=== PATIENT | female | born 1935 | race Caucasian/White ===

== ENCOUNTER 2022-08-08 15:17 | Outpatient (REF) | payer MEDICARE, SELFPAY ==
[2022-08-08 16:32] LABS: Basophils Absolute Auto 0.1 X10*3/uL (0.0-0.2); Basophils Percent Auto 0.9 % (0-2); Hemoglobin 10.9 g/dl (12.0-16.0); Imm Gran Abs Auto 0.02 X10*3/uL (0.00-0.03); Imm Gran Pct Auto 0.3 % (0.0-0.4); MANUAL DIFF FLAG SCAN; Mean Platelet Volume 13.3 fL (9.4-12.3); SCAN SMEAR FLAG 1
[2022-08-08 16:34] LABS: Eosinophils Absolute Auto 0.2 X10*3/uL (0.0-0.4); Eosinophils Percent Auto 3.4 % (0-4); Hematocrit 32.1 % (37.0-47.0); Lymphocytes Absolute Auto 1.7 X10*3/uL (1.2-4.9); Lymphocytes Percent Auto 29.7 % (20-40); Mean Corpuscular Hemoglobin 32.2 pg (27.0-33.0); Mean Corpuscular Volume 94.7 fL (80.0-98.0); Monocytes Absolute Auto 0.5 X10*3/uL (0.1-1.2); Monocytes Percent Auto 8.3 % (2-11); Neutrophils Absolute Auto 3.3 x10*3/uL (2.0-8.3); Neutrophils Percent Auto 57.4 % (45-73); Platelet Count 158 X10*3/uL (160-400); Red Blood Count 3.39 X10*6/uL (4.20-5.50); Red Cell Distribution Width 12.5 % (11.0-16.0); White Blood Count 5.8 X10*3/uL (4.8-10.8)
[2022-08-08 16:43] LABS: PLT ABN DIST 1
[2022-08-08 17:45] LABS: SLIDE REVIEW VERIFIED
[2022-08-08 17:47] LABS: Alanine Aminotransferase 28 U/L (0-31); Albumin Level 3.9 g/dL (3.5-5.0); Alkaline Phosphatase 63 U/L (39-117); Anion Gap 10 (12-20); Aspartate Amino Transferase 31 U/L (5-31); Bilirubin Total 0.5 mg/dL (0.0-1.0); Blood Urea Nitrogen 20 mg/dL (9-16); Calcium 8.9 mg/dL (8.4-10.2); Carbon Dioxide 23 mmol/L (22-29); Chloride 113 mmol/L (96-108); Estimated Glomerular Filt Rate 45; Glucose Random 81 mg/dL (60-115); Iron 70 mcg/dL (30-160); Percent Iron Saturation 28 % (15-50); Potassium 4.2 mmol/L (3.3-5.1); Sodium 142 mmol/L (135-145); Total Iron Binding Capacity 251 mcg/dL (228-428); Total Protein 6.9 g/dL (6.5-8.0); Unsaturated Iron Binding 181 ug/dL
[2022-08-08 18:15] LABS: Folate 7.2 ng/mL (> or = 4.0); Vitamin B12 256 pg/mL (200-900); Vitamin D 25-OH Total 32.7 ng/mL (>30)
[2022-08-11 14:02] LABS: Immature Retic Fraction 8.3 % (3.0-15.9); Retic HGB Equivalent 37.2 pg (30.0-35.0); Reticulocyte Percent 1.6 % (0.5-1.8); Reticulocytes Absolute 0.054 X10*6/uL (0.026-0.095)
[2022-08-11 14:12] LABS: C Reactive Protein < 0.04 mg/dL (< or = 0.50)
[2022-08-15 15:08] LABS: IgA 339 mg/dL (70-320); IgG 1557 mg/dL (600-1540); IgM 177 mg/dL (50-300)
== END 2022-08-08 15:18 | disposition home or self-care (01) ==
LOC: HO.HMGCLDS 15:17
PROVIDERS: Visit Provider Internal Medicine
DX: E03.9 Hypothyroidism, unspecified (principal); I10 Essential (primary) hypertension; M81.0 Age-related osteoporosis without current pathological fracture; D64.9 Anemia, unspecified
CPT/HCPCS: 36415; 80053; 82306; 82607; 82746; 82784; 83540; 85025; 85045; 86140; 86334

== ENCOUNTER 2022-09-06 09:49 | Outpatient (REF) | payer MEDICARE, SELFPAY ==
[2022-09-06 11:23] LABS: MANUAL DIFF FLAG NO
[2022-09-06 11:38] LABS: Basophils Absolute Auto 0.1 X10*3/uL (0.0-0.2); Basophils Percent Auto 0.9 % (0-2); Eosinophils Absolute Auto 0.3 X10*3/uL (0.0-0.4); Hematocrit 34.7 % (37.0-47.0); Hemoglobin 11.6 g/dl (12.0-16.0); Imm Gran Abs Auto 0.02 X10*3/uL (0.00-0.03); Imm Gran Pct Auto 0.4 % (0.0-0.4); Immature Retic Fraction 7.8 % (3.0-15.9); Lymphocytes Absolute Auto 1.4 X10*3/uL (1.2-4.9); Lymphocytes Percent Auto 25.4 % (20-40); Mean Corpuscular HGB Conc 33.4 g/dl (31.0-35.0); Mean Corpuscular Hemoglobin 32.4 pg (27.0-33.0); Mean Corpuscular Volume 96.9 fL (80.0-98.0); Mean Platelet Volume 12.3 fL (9.4-12.3); Monocytes Absolute Auto 0.4 X10*3/uL (0.1-1.2); Monocytes Percent Auto 7.9 % (2-11); Neutrophils Absolute Auto 3.2 x10*3/uL (2.0-8.3); Neutrophils Percent Auto 60.4 % (45-73); Platelet Count 168 X10*3/uL (160-400); Red Blood Count 3.58 X10*6/uL (4.20-5.50); Red Cell Distribution Width 12.2 % (11.0-16.0); Retic HGB Equivalent 36.9 pg (30.0-35.0); Reticulocyte Percent 0.9 % (0.5-1.8); Reticulocytes Absolute 0.033 X10*6/uL (0.026-0.095); White Blood Count 5.4 X10*3/uL (4.8-10.8)
[2022-09-06 12:06] LABS: Anion Gap 10 (12-20); Blood Urea Nitrogen 19 mg/dL (9-16); C Reactive Protein < 0.10 mg/dL (< or = 0.50); Calcium 9.4 mg/dL (8.4-10.2); Carbon Dioxide 29 mmol/L (22-29); Chloride 106 mmol/L (96-108); Estimated Glomerular Filt Rate 50; Glucose Random 85 mg/dL (60-115); Potassium 3.8 mmol/L (3.3-5.1); Sodium 141 mmol/L (135-145)
[2022-09-06 12:25] LABS: TSH reflex Free T4 2.47 uIU/mL (0.32-4.0)
== END 2022-09-06 09:50 | disposition home or self-care (01) ==
LOC: HO.HMGCLDS 09:49
PROVIDERS: PCP Internal Medicine; Visit Provider Internal Medicine
DX: E03.9 Hypothyroidism, unspecified (principal); I10 Essential (primary) hypertension; D64.9 Anemia, unspecified
CPT/HCPCS: 36415; 80048; 84443; 85025; 85045; 86140

== ENCOUNTER 2023-02-16 09:53 | Outpatient (AMB) | payer MEDICARE, SELFPAY ==
--- NOTE | 2023-02-16 09:54 | MHC.PC.OV ---
Vital Signs 02/16/23 09:55 Height 5 ft 1 in Weight 107 lb BMI 20.2 BP 128/60 Blood Pressure Location Lt brachial Position Sitting Pulse 81 Pulse Source Pulse Oximeter Pulse Oximetry (%) 98 Oxygen Delivery Method Room Air Intake Visit Reasons: Follow up on labs Intake Note: Pt is here today for a follow up visit on labs. Allergies chlorpheniramine Allergy (Verified 02/16/23 09:59) Unknown Penicillins Allergy (Verified 02/16/23 09:59) Unknown phenylpropanolamine Allergy (Verified 02/16/23 09:59) Unknown Medication List - Last Reconciled 02/16/23 by Argelia Hutchins MD amlodipine 5 mg PO DAILY aspirin 81 mg PO DAILY atorvastatin 40 mg PO BEDTIME levothyroxine 75 mcg PO DAILY lisinopril 30 mg PO DAILY metoprolol tartrate 25 mg PO DAILY Tobacco use date assessed: 02/16/23 Fall risk assessment: No Falls in past year Last assessed Fall Risk: 02/16/23 Dental Screening Dental Screen Date: 02/16/23 Did you have a dental visit in the last 12 months?: Yes Did you have a dental problem in the last 6 months where you did not have access to dental care?: No Was dental information given to patient?: Patient has dentist HPI Follow up on labs HPI Details Pt presents for f/u of HTN and hypothyroid stable on meds PFSH Medical History Colon cancer Surgical History Hx of appendectomy History of colon resection Hx of tonsillectomy Family History Father Brain tumor Mother Colon cancer Sister Lung cancer Social History Household Members Other:: lives alone, 6 daughters, Housing: House Patient Tobacco Use Status: Never used Tobacco e-Cigarette/Vaping Use: Never Used Current occupational status: retired Cognitive needs: No Hearing needs: No Vision needs: Yes Questionnaire Thrive Questionnaire Date Thrive assessed: 08/08/22 AUDIT C Alcohol Use Questionnaire (AUDIT-C) 1. How often do you have a drink containing alcohol?: Never 3. How often do you have six or more drinks on one occasion?: Never Total Score: 0 ESTHER-7 AMB Questionnaire ESTHER-7 Date ESTHER - 7 assessed: 08/08/22 Source: Developed by Drs. Trent Coulter, Keisha Woodson, Blaine Jurado and colleagues, with an educational miah from [employer]. Review of Systems Const All systems reviewed & are unremarkable except as noted in HPI and below Reports no additional complaints Eyes Reports no additional complaints ENT Reports no additional complaints Card Reports no additional complaints Resp Reports no additional complaints GI Reports no additional complaints Reports no additional complaints Physical exam (Primary Care) Vital Signs: Last Vital Signs Pulse 81 02/16/23 09:55 BP 128/60 02/16/23 09:55 Pulse Ox 98 02/16/23 09:55 Oxygen Delivery Method Room Air 02/16/23 09:55 BMI result Body Mass Index 20.2 Tobacco/Smoking Status: Tobacco use Status Tobacco use date assessed 02/16/23 02/16/23 10:02 Patient Tobacco Use Status Never used Tobacco 02/16/23 10:02 e-Cigarette/Vaping Use Never Used 02/16/23 10:02 Thrive Assessment: Date of Thrive Assessment Date Thrive assessed 08/08/22 02/16/23 10:02 Const General: no acute distress HENMT Head: Yes normal to inspection Neck Neck: Yes no lymphadenopathy and Yes supple Resp Effort & Inspection: normal respiratory effort Auscultation: clear to auscultation bilaterally Cardio Rhythm: regular rhythm Heart sounds: S1 normal heart sound present and S2 normal heart sound present GI Inspection: Yes normal to inspection Palpation (GI): Soft to palpation Assessment and Plan Assessment & Plan (1) Anemia: Comment: Multifactorial normal iron and B12 level 07/13 Code(s): D64.9 - Anemia, unspecified Plan: check labs (2) Hypothyroidism: Code(s): E03.9 - Hypothyroidism, unspecified Plan: cont Levothyroxine, check TSH (3) HTN (hypertension): Code(s): I10 - Essential (primary) hypertension Plan: cont meds, f/u 6 months Medications: Refilled levothyroxine 75 mcg PO DAILY 90 tabs 3RF amlodipine 5 mg PO DAILY 90 tabs 3RF lisinopril 30 mg PO DAILY 90 tabs 3RF Discontinued metoprolol tartrate Discontinued Reason: Doctor's Order 25 mg PO DAILY 90 tabs 2RF atorvastatin Discontinued Reason: Doctor's Order 40 mg PO BEDTIME 90 tabs 1RF Coding Level of Care Code Est Pt Level 4 (15678) Diagnoses Anemia D64.9 Hypothyroidism E03.9 HTN (hypertension) I10
[2023-02-16 09:55] VITALS: BP 128/60; PULSE 81; O2SAT 98; BMI 20.2
== END 2023-02-16 10:43 | disposition home or self-care (01) ==
PROVIDERS: PCP Internal Medicine; Visit Provider Internal Medicine
DX: D64.9 Anemia, unspecified (principal); E03.9 Hypothyroidism, unspecified; I10 Essential (primary) hypertension
CPT/HCPCS: 99214

== ENCOUNTER 2023-03-29 08:36 | Outpatient (REF) | payer MEDICARE, SELFPAY ==
[2023-03-29 11:13] LABS: MANUAL DIFF FLAG NO
[2023-03-29 11:48] LABS: Basophils Absolute Auto 0.1 X10*3/uL (0.0-0.2); Basophils Percent Auto 1.4 % (0-2); Eosinophils Absolute Auto 0.3 X10*3/uL (0.0-0.4); Eosinophils Percent Auto 7.5 % (0-4); Hematocrit 33.1 % (37.0-47.0); Hemoglobin 11.3 g/dl (12.0-16.0); Imm Gran Abs Auto 0.01 X10*3/uL (0.00-0.03); Imm Gran Pct Auto 0.2 % (0.0-0.4); Lymphocytes Absolute Auto 1.3 X10*3/uL (1.2-4.9); Lymphocytes Percent Auto 30.9 % (20-40); Mean Corpuscular HGB Conc 34.1 g/dl (31.0-35.0); Mean Corpuscular Hemoglobin 32.4 pg (27.0-33.0); Mean Corpuscular Volume 94.8 fL (80.0-98.0); Monocytes Absolute Auto 0.4 X10*3/uL (0.1-1.2); Neutrophils Absolute Auto 2.2 x10*3/uL (2.0-8.3); Platelet Count 184 X10*3/uL (160-400); Red Blood Count 3.49 X10*6/uL (4.20-5.50); Red Cell Distribution Width 12.1 % (11.0-16.0); White Blood Count 4.2 X10*3/uL (4.8-10.8)
[2023-03-29 12:00] LABS: Alanine Aminotransferase 13 U/L (0-31); Albumin Level 3.8 g/dL (3.5-5.0); Alkaline Phosphatase 78 U/L (39-117); Anion Gap 11 (12-20); Aspartate Amino Transferase 26 U/L (5-31); Bilirubin Total 0.6 mg/dL (0.0-1.0); Blood Urea Nitrogen 18 mg/dL (9-16); Carbon Dioxide 27 mmol/L (22-29); Chloride 105 mmol/L (96-108); Cholesterol 205 mg/dL (<200); Estimated Glomerular Filt Rate 52; Glucose Fasting 85 mg/dL (60-99); HDL Cholesterol 42 mg/dL (>40); LDL Cholesterol Calculated 138 mg/dL (<100); Potassium 3.7 mmol/L (3.3-5.1); Sodium 139 mmol/L (135-145); Total Protein 7.5 g/dL (6.5-8.0); Triglycerides 127 mg/dL (<150)
[2023-03-29 12:01] LABS: TSH reflex Free T4 0.95 uIU/mL (0.32-4.0)
[2023-03-29 12:25] LABS: Folate 8.3 ng/mL (> or = 4.0); Vitamin B12 156 pg/mL (200-900)
== END 2023-03-29 08:37 | disposition home or self-care (01) ==
LOC: HO.WFDLDS 08:36
PROVIDERS: Visit Provider Internal Medicine
DX: E03.9 Hypothyroidism, unspecified (principal); I10 Essential (primary) hypertension; D64.9 Anemia, unspecified
CPT/HCPCS: 36415; 80053; 80061; 82607; 82746; 84443; 85025

== ENCOUNTER 2023-05-02 11:36 | Outpatient (AMB) | payer MEDICARE, SELFPAY ==
[2023-05-02 11:41] VITALS: BP 116/58; PULSE 94; O2SAT 99; BMI 20.2
--- NOTE | 2023-05-02 11:41 | MHC.PC.OV ---
Vital Signs 05/02/23 11:41 Height 5 ft 1 in Weight 107 lb BMI 20.2 BP 116/58 L Blood Pressure Location Lt brachial Position Sitting Pulse 94 Pulse Source Pulse Oximeter Pulse Oximetry (%) 99 Oxygen Delivery Method Room Air Intake Visit Reasons: Hospital follow up visit Intake Note: Pt is here today for Hospital follow up visit. Allergies chlorpheniramine Allergy (Verified 02/16/23 09:59) Unknown Penicillins Allergy (Verified 02/16/23 09:59) Unknown phenylpropanolamine Allergy (Verified 02/16/23 09:59) Unknown Medication List - Last Reconciled 05/02/23 by Argelia Hutchins MD amlodipine 5 mg PO DAILY aspirin 81 mg PO DAILY atorvastatin 80 mg PO BEDTIME clopidogrel (Plavix) 75 mg PO DAILY cyanocobalamin (vitamin B-12) 1,000 mcg PO DAILY levothyroxine 75 mcg PO DAILY lisinopril 30 mg PO DAILY Tobacco use date assessed: 05/02/23 HPI Hospital follow up visit HPI Details Pt presents for hospitalization at [facility] for CVA and L carotid endarterectomy for 70% a left internal carotid artery stenosis. Patient recovered well and does not have any residual neurological deficit. Patient daughters reports blood pressure being low 110/50 but patient denies lightheadedness or dizziness. She will be starting clopidogrel on Sunday in addition to the aspirin. Patient follows up with vascular surgeon next week [facility] Medical History (Updated 05/02/23 @ 12:45 by Argelia Hutchins MD) Colon cancer Surgical History Hx of appendectomy History of colon resection Hx of tonsillectomy Family History Father Brain tumor Mother Colon cancer Sister Lung cancer Social History Household Members Other:: lives alone, 6 daughters, Housing: House Patient Tobacco Use Status: Never used Tobacco e-Cigarette/Vaping Use: Never Used Current occupational status: retired Cognitive needs: No Hearing needs: No Vision needs: Yes Questionnaire Thrive Questionnaire Date Thrive assessed: 08/08/22 ESTHER-7 AMB Questionnaire ESTHER-7 Date ESTHER - 7 assessed: 08/08/22 Source: Developed by Drs. Trent Coulter, Keisha Woodson, Blaine Jurado and colleagues, with an educational miah from [employer]. Review of Systems Const All systems reviewed & are unremarkable except as noted in HPI and below Reports no additional complaints Eyes Reports no additional complaints ENT Reports no additional complaints Card Reports no additional complaints Resp Reports no additional complaints GI Reports no additional complaints Reports no additional complaints Physical exam (Primary Care) Vital Signs: Last Vital Signs Pulse 94 05/02/23 11:41 BP 116/58 L 05/02/23 11:41 Pulse Ox 99 05/02/23 11:41 Oxygen Delivery Method Room Air 05/02/23 11:41 BMI result Body Mass Index 20.2 Tobacco/Smoking Status: Tobacco use Status Tobacco use date assessed 05/02/23 05/02/23 11:49 Patient Tobacco Use Status Never used Tobacco 05/02/23 11:49 e-Cigarette/Vaping Use Never Used 05/02/23 11:49 Thrive Assessment: Date of Thrive Assessment Date Thrive assessed 08/08/22 05/02/23 11:49 Const General: no acute distress HENMT Face and sinus: Yes normal facial exam Neck Neck: Yes supple Resp Effort & Inspection: normal respiratory effort Auscultation: clear to auscultation bilaterally Cardio Rhythm: regular rhythm Heart sounds: S1 normal heart sound present and S2 normal heart sound present GI Inspection: Yes normal to inspection Palpation (GI): Soft to palpation Assessment and Plan Assessment & Plan (1) Anemia: Comment: Multifactorial normal iron and B12 level 07/13 Code(s): D64.9 - Anemia, unspecified Plan: Continue B12 supplement monitor CBC and vitamin B12 (2) Hypothyroidism: Code(s): E03.9 - Hypothyroidism, unspecified Plan: Continue levothyroxine (3) HTN (hypertension): Code(s): I10 - Essential (primary) hypertension Plan: Blood pressure is low and patient will try half a tablet of amlodipine and continue lisinopril. Her daughter will be monitor her blood pressure every other day (4) Left carotid artery stenosis: Comment: 70 % , small CVA 05/12 , S/P endarterectomy 04/25/23, [facility] , f/u Code(s): I65.22 - Occlusion and stenosis of left carotid artery Plan: Follow-up with vascular surgeon at [facility] Orders: Orders Vitamin B12 and Folate 3 Months D64.9 - Anemia, unspecified, E03.9 - Hypothyroidism, unspecified, I10 - Essential (primary) hypertension Complete Blood Count Auto Diff 3 Months D64.9 - Anemia, unspecified, E03.9 - Hypothyroidism, unspecified, I10 - Essential (primary) hypertension TSH reflex Free T4 3 Months D64.9 - Anemia, unspecified, E03.9 - Hypothyroidism, unspecified, I10 - Essential (primary) hypertension Lipid Panel 3 Months D64.9 - Anemia, unspecified, E03.9 - Hypothyroidism, unspecified, I10 - Essential (primary) hypertension Comprehensive [place]. Panel Fast 3 Months D64.9 - Anemia, unspecified, E03.9 - Hypothyroidism, unspecified, I10 - Essential (primary) hypertension Coding Level of Care Code Est Pt Level 4 (56946) Diagnoses Anemia D64.9 Hypothyroidism E03.9 HTN (hypertension) I10 Left carotid artery stenosis I65.22
== END 2023-05-02 12:48 | disposition home or self-care (01) ==
PROVIDERS: PCP Internal Medicine; Visit Provider Internal Medicine
DX: D64.9 Anemia, unspecified (principal); E03.9 Hypothyroidism, unspecified; I10 Essential (primary) hypertension; I65.22 Occlusion and stenosis of left carotid artery
CPT/HCPCS: 99214

== ENCOUNTER 2023-06-28 08:17 | Outpatient (REF) | payer MEDICARE, SELFPAY ==
[2023-06-28 11:18] LABS: MANUAL DIFF FLAG NO
[2023-06-28 11:40] LABS: Basophils Absolute Auto 0.1 X10*3/uL (0.0-0.2); Basophils Percent Auto 0.8 % (0-2); Eosinophils Absolute Auto 0.3 X10*3/uL (0.0-0.4); Eosinophils Percent Auto 4.7 % (0-4); Hematocrit 37.2 % (37.0-47.0); Hemoglobin 12.4 g/dl (12.0-16.0); Imm Gran Abs Auto 0.01 X10*3/uL (0.00-0.03); Imm Gran Pct Auto 0.2 % (0.0-0.4); Lymphocytes Absolute Auto 1.7 X10*3/uL (1.2-4.9); Lymphocytes Percent Auto 26.3 % (20-40); Mean Corpuscular HGB Conc 33.3 g/dl (31.0-35.0); Mean Corpuscular Hemoglobin 31.2 pg (27.0-33.0); Mean Corpuscular Volume 93.5 fL (80.0-98.0); Mean Platelet Volume 12.3 fL (9.4-12.3); Monocytes Absolute Auto 0.5 X10*3/uL (0.1-1.2); Monocytes Percent Auto 8.2 % (2-11); Neutrophils Absolute Auto 3.8 x10*3/uL (2.0-8.3); Neutrophils Percent Auto 59.8 % (45-73); Platelet Count 165 X10*3/uL (160-400); Red Blood Count 3.98 X10*6/uL (4.20-5.50); Red Cell Distribution Width 12.8 % (11.0-16.0); White Blood Count 6.4 X10*3/uL (4.8-10.8)
[2023-06-28 12:09] LABS: Alanine Aminotransferase 22 U/L (0-31); Alkaline Phosphatase 162 U/L (39-117); Anion Gap 10 (12-20); Aspartate Amino Transferase 23 U/L (5-31); Bilirubin Total 0.5 mg/dL (0.0-1.0); Blood Urea Nitrogen 21 mg/dL (9-16); Calcium 9.8 mg/dL (8.4-10.2); Carbon Dioxide 29 mmol/L (22-29); Chloride 102 mmol/L (96-108); Cholesterol 193 mg/dL (<200); Estimated Glomerular Filt Rate 41; Glucose Fasting 98 mg/dL (60-99); HDL Cholesterol 44 mg/dL (>40); LDL Cholesterol Calculated 117 mg/dL (<100); Potassium 3.3 mmol/L (3.3-5.1); Sodium 138 mmol/L (135-145); Triglycerides 162 mg/dL (<150)
[2023-06-28 12:31] LABS: TSH reflex Free T4 1.31 uIU/mL (0.32-4.0)
[2023-06-28 12:38] LABS: Folate 6.6 ng/mL (> or = 4.0); Vitamin B12 444 pg/mL (200-900)
== END 2023-06-28 08:18 | disposition home or self-care (01) ==
LOC: HO.WFDLDS 08:17
PROVIDERS: Visit Provider Internal Medicine
DX: E03.9 Hypothyroidism, unspecified (principal); I10 Essential (primary) hypertension; D64.9 Anemia, unspecified
CPT/HCPCS: 36415; 80053; 80061; 82607; 82746; 84443; 85025

== ENCOUNTER 2023-09-13 10:52 | Outpatient (AMB) | payer MEDICARE, SELFPAY ==
[2023-09-13 11:08] VITALS: BP 118/68; PULSE 80; O2SAT 98; BMI 18.9
--- NOTE | 2023-09-13 11:08 | A.OFFVIS_ITS ---
Intake Vital Signs 09/13/23 11:08 Height 5 ft 1 in Weight 100 lb BMI 18.9 BP 118/68 Blood Pressure Location Rt brachial Position Sitting Pulse 80 Pulse Source Pulse Oximeter Pulse Oximetry (%) 98 Oxygen Delivery Method Room Air Intake Visit Reasons: SWV [id number] Allergies Penicillins Allergy (Verified 09/13/23 11:15) Unknown Medication List - Last Reconciled 09/13/23 by Argelia Hutchins MD amlodipine 5 mg PO DAILY aspirin 81 mg PO DAILY atorvastatin 80 mg PO BEDTIME clopidogrel (Plavix) 75 mg PO DAILY cyanocobalamin (vitamin B-12) 1,000 mcg PO DAILY levothyroxine 75 mcg PO DAILY lisinopril 30 mg PO DAILY HPI SWV [id number] HPI Details Initiated the conversation about Advanced Directives. Advanced Directives help? patients prepare for current and future decisions about their medical treatment? and place of care. Discussed with patient that it is a process where a patients? current condition and prognosis are reviewed, their wishes for information? regarding their illness are elicited, and likely medical dilemmas are presented? and options discussed. The form can be amended as needed, reviewed yearly and? make changes as needed IPPE/AWV ? year old presents? for her ? Annual? Wellness Visit, initial visit.? Medical / Social History Reviewed? Past Medical History ?Yes? . ? [place]? of Care / Care Team list updated ?Yes . ? Surgical/Hospitalization? History ?Yes . ? Current Medications? (including OTC and supplements) ?Yes . ? Family History ?Yes? . ? Tobacco? Control form ?Yes . ? AUDIT-C (Alcohol use) form? ?Yes . ? Illicit drug use in Social? History ?Yes . ? Current diagnosis of? depression? ?No ? Appropriate PHQ2/PHQ9? completed ?Yes . ? Data entered by ?Medical? Director Insurance and reviewed by provider ? Fall Risk ? Fall? History? Have you had any falls with? injury in the past year? ?No . ? Have you had two or more? falls in the past year? ?No . ? Fall Risk Assessment: ?No? falls in the past year . ? HRA filled out by? the patient, reviewed by Provider and scanned. ? IPPE/AWV ? Balance? [place]? ?Yes . ? Tandem? walk ?Yes . ? Walk and? Turn ?Yes . ? Rise from? sit to stand ?Yes . ?Vision? Corrective? lens ?Yes ? Vision? screen ? Up-to-date, has an appointment [] for vision? screening and glaucoma screening ?Hearing? Whisper? test ?pass .? Initiated the conversation about Advanced Directives. Advanced Directives help? patients prepare for current and future decisions about their medical treatment? and place of care. Discussed with patient that it is a process where a patients? current condition and prognosis are reviewed, their wishes for information? regarding their illness are elicited, and likely medical dilemmas are presented? and options discussed. The form can be amended as needed, reviewed yearly and? make changes as needed Written? Plan?Completed. See Patient? Documents. [facility] Medical History Colon cancer Surgical History Hx of appendectomy History of colon resection Hx of tonsillectomy Family History Father Brain tumor Mother Colon cancer Sister Lung cancer Social History Household Members Other:: lives alone, 6 daughters, Housing: House Patient Tobacco Use Status: Never used Tobacco e-Cigarette/Vaping Use: Never Used Current occupational status: retired Cognitive needs: No Hearing needs: No Vision needs: Yes Questionnaire Medicare Wellness Checkup What is your age?: 81 or older What gender do you identify with?: female During the past 4 weeks, how much have you been bothered by emotional problems such as feeling anxious, depressed, irritable, sad or downhearted, and blue?: not at all During the past 4 weeks, has your physical & emotional health limited your social activities with family, friends, neighbors, or groups?: not at all During the past 4 weeks, how much bodily pain have you generally had?: no pain During the past 4 weeks, was someone available to help you if you needed & wanted help?: yes, as much as I wanted During the past 4 weeks, what was the hardest physical activity you could do for at least 2 minutes?: light Can you get to places out of walking distance without help? (For eg., can you travel alone on buses, taxis or drive your car?): No Can you go shopping for groceries or clothes without someone's help?: No Can you prepare your own meals?: Yes Can you do your housework without help?: Yes Because of any health problems, do you need the help of another person with your personal care needs such as eating, bathing, dressing or getting around the house?: No Can you handle your own money without help?: Yes During the past 4 weeks, how would you rate your health in general?: excellent During the past 4 weeks how have things been going for you?: very well; could hardly better Are you having difficulties driving your car?: not applicable, I don't use a car Do you always fasten your seat belt when you are in a car?: yes, usually During past 4 weeks, have you been bothered by the following: never: Falling or dizzy when standing up, Trouble eating well?, Teeth or denture problems?, Problems using the telephone? and Tiredness or fatigue? Have you fallen 2 or more times in the past year?: No Are you afraid of falling?: No Are you a smoker?: no During the past 4 weeks, how many drinks of wine, beer, or other alcoholic beverages did you have?: no alcohol at all Do you exercise for about 20 minutes 3 or more times a week?: yes, most of the time Have you been given information to help with the following?: no: Hazards in your house that might hurt you? and no: Keeping track of your medications? How often do you have trouble taking medicines the way you have been told to take them?: I always take medicine as prescribed How confident are you that you can control & manage most of your health problems?: very confident What is your race?: White Mini Mental State Exam (MMSE) Orientation What is the (year) (season) (date) (day) (month)?: year, season, date, day and month Where are we (state) (county) (town or city) (hospital) (floor)?: state, county, town or city, hospital/clinic and floor Registration Name of 3 unrelated objects clearly and slowly, then ask patient to repeat all 3 of them. (1st repeat determines score. Make sure they can repeat all three): object 1, object 2 and object 3 Attention & Calculation (CHOOSE ONE) Spell WORLD backwards (DLROW): 5 letters Recall Ask patient to repeat the 3 items from question #3.: object 1, object 2 and object 3 Language Show patient a wristwatch & ask what it is. Repeat for pencil.: watch and pencil Ask the patient to repeat the phrase 'No ifs, ands, or buts' after you.: correct Ask the patient to 'take a piece of paper with their right hand' 'fold paper in half' 'place paper on floor': take paper in right hand, fold paper in half and place paper on floor Print the sentence 'CLOSE YOUR EYES' on a piece. If patient actually closes eyes then score.: followed written direction Give patient a blank piece of paper & ask to write a sentence. Score if it contains a noun & verb.: sentence contains subject and verb Score Score: 29 Activity of Daily Living Bathing - sponge bath, tub bath or shower: receives no assistance (gets in/out by self, if usual bathing means Dressing - getting clothes from closets & drawers, including inner/outer garments & fasteners.: gets clothes & gets completely dressed without help Toileting - going to the 'toilet room' for urine/bowel elimination & cleaning self/arranging clothes: goes to toilet room, cleans self, arranges clothes without help Transfer: moves in & out of bed and chair without help (may use support object) Continence: controls urination/bowel movements completely by self Feeding: feeds self without help Total Score: 0 Information obtained from: informant Using telephone: independent Traveling: dependent Shopping: dependent Preparing meals: independent Housework: independent Taking medicine: dependent Managing money: independent PHQ-9 Over the last 2 weeks, how often have you been bothered by any of the following problems? 1. Little interest or pleasure in doing things: not at all 2. Feeling down, depressed, or hopeless: not at all 3. Trouble falling or staying asleep, or sleeping too much: not at all 4. Feeling tired or having little energy: not at all 5. Poor appetite or overeating: not at all 6. Feeling bad about yourself - or that you are a failure or have let yourself or your family down: not at all 7. Trouble concentrating on things, such as reading the newspaper or watching television: not at all 8. Moving or speaking so slowly that other people could have noticed. Or the opposite - being so fidgety or restless that you have been moving around a lot more than usual: not at all 9. Thoughts that you would be better off or of hurting yourself in some way: not at all Total score: 0 Depression Screening Interpretation: Negative Depression Screening Done: Yes Source: Developed by Drs. Trent Coulter, Keisha Woodson, Blaine Jurado and colleagues, with an educational miah from [employer]. Review of Systems Const All systems reviewed & are unremarkable except as noted in HPI and below Eyes Reports no additional complaints ENT Reports no additional complaints Card Reports no additional complaints Resp Reports no additional complaints GI Reports no additional complaints Reports no additional complaints Physical Exam Vital Signs: Last Vital Signs Pulse 80 09/13/23 11:08 BP 118/68 09/13/23 11:08 Pulse Ox 98 09/13/23 11:08 Oxygen Delivery Method Room Air 09/13/23 11:08 BMI result Body Mass Index 18.9 Const General: no acute distress HEENT Head: Yes normal to inspection Eyes General: appearance normal, both eyes and all related structures Neck Neck: Yes supple Resp Effort & Inspection: normal respiratory effort Auscultation: clear to auscultation bilaterally Cardio Rhythm: regular rhythm Heart sounds: S1 normal heart sound present and S2 normal heart sound present GI Inspection: Yes normal to inspection Palpation (GI): Soft to palpation Percussion: Yes normal to percussion Auscultation: normal bowel sounds Extrem General: Yes no clubbing, cyanosis or edema Assessment & Plan Assessment & Plan (1) Postmenopausal: Code(s): Z78.0 - Asymptomatic menopausal state Plan: CHECK DEXA (2) Osteoporosis: Comment: Intolerant to Fosamax in the past, Code(s): M81.0 - Age-related osteoporosis without current pathological fracture Plan: Check DEXA, Reclast infusion will be considered after the result continue vitamin-D (3) Hyperlipemia: Code(s): E78.5 - Hyperlipidemia, unspecified Plan: Continue statin (4) Vitamin B 12 deficiency: Code(s): E53.8 - Deficiency of other specified B group vitamins Plan: Continue vitamin B12 (5) Hypothyroidism: Code(s): E03.9 - Hypothyroidism, unspecified Plan: Continue levothyroxine (6) HTN (hypertension): Code(s): I10 - Essential (primary) hypertension Plan: Continue amlodipine and lisinopril, increase fluid intake repeat comprehensive panel for chronic kidney disease stage 3 in 1 month (7) Annual physical exam: Code(s): Z00.00 - Encounter for general adult medical examination without abnormal findings Plan: Well-balanced diet regular physical activity discussed with the patient Plan Follow-up in 6 months Orders: Orders Comprehensive Met. Panel 1 Month M81.0 - Age-related osteoporosis without current pathological fracture Alkaline Phosphatase Isoenzyme 1 Month M81.0 - Age-related osteoporosis without current pathological fracture Vitamin D 25-OH Total 1 Month E55.9 - Vitamin D deficiency, unspecified, M81.0 - Age-related osteoporosis without current pathological fracture Comprehensive [place]. Panel Fast 6 Months D64.9 - Anemia, unspecified, E03.9 - Hypothyroidism, unspecified, E53.8 - Deficiency of other specified B group vitamins, E55.9 - Vitamin D deficiency, unspecified, E78.5 - Hyperlipidemia, unspecified, I10 - Essential (primary) hypertension Complete Blood Count Auto Diff 6 Months D64.9 - Anemia, unspecified, E03.9 - Hypothyroidism, unspecified, E53.8 - Deficiency of other specified B group vitamins, E55.9 - Vitamin D deficiency, unspecified, E78.5 - Hyperlipidemia, unspecified, I10 - Essential (primary) hypertension XR DEXA axial skeleton Today M81.0 - Age-related osteoporosis without current pathological fracture, Z78.0 - Asymptomatic menopausal state Lipid Panel 6 Months D64.9 - Anemia, unspecified, E03.9 - Hypothyroidism, unspecified, E53.8 - Deficiency of other specified B group vitamins, E55.9 - Vitamin D deficiency, unspecified, E78.5 - Hyperlipidemia, unspecified, I10 - Essential (primary) hypertension TSH reflex Free T4 6 Months D64.9 - Anemia, unspecified, E03.9 - Hypothyroidism, unspecified, E53.8 - Deficiency of other specified B group vitamins, E55.9 - Vitamin D deficiency, unspecified, E78.5 - Hyperlipidemia, unspecified, I10 - Essential (primary) hypertension Vitamin B12 and Folate 6 Months D64.9 - Anemia, unspecified, E03.9 - Hypothyroidism, unspecified, E53.8 - Deficiency of other specified B group vitamins, E55.9 - Vitamin D deficiency, unspecified, E78.5 - Hyperlipidemia, unspecified, I10 - Essential (primary) hypertension Vitamin D 25-OH Total 6 Months D64.9 - Anemia, unspecified, E03.9 - Hypothyroidism, unspecified, E53.8 - Deficiency of other specified B group vitamins, E55.9 - Vitamin D deficiency, unspecified, E78.5 - Hyperlipidemia, unspecified, I10 - Essential (primary) hypertension Quality Reporting (2019) Depression/Bipolar (159/160/161/177) PHQ-9: Total score: 0 Coding Level of Care Code Medicare Subsequent (G0439) Diagnoses Postmenopausal Z78.0 Osteoporosis M81.0 Hyperlipemia E78.5 Vitamin B 12 deficiency E53.8 Hypothyroidism E03.9 HTN (hypertension) I10 Annual physical exam Z00.00 CPT Codes Advance Care Planning - Advance Care Planning discussion: On file, no changes ([id number]) Advance Care Planning - Time spent: 1-15 minutes, on File ([id number]) Advance Care Planning Advance Care Planning discussion: On file, no changes Forms completed: Health Care Proxy Time spent: 1-15 minutes, on File
== END 2023-09-13 11:59 | disposition home or self-care (01) ==
PROVIDERS: PCP Internal Medicine; Visit Provider Internal Medicine
DX: Z00.00 Encounter for general adult medical examination without abnormal findings (principal); Z78.0 Asymptomatic menopausal state; M81.0 Age-related osteoporosis without current pathological fracture; E78.5 Hyperlipidemia, unspecified; E53.8 Deficiency of other specified B group vitamins; E03.9 Hypothyroidism, unspecified; I10 Essential (primary) hypertension
CPT/HCPCS: 1123F; G0439

== ENCOUNTER 2023-10-10 12:27 | Outpatient (REF) | payer MEDICARE, SELFPAY ==
[2023-10-10 17:47] LABS: Alanine Aminotransferase 13 U/L (0-31); Albumin Level 3.7 g/dL (3.5-5.0); Alkaline Phosphatase 69 U/L (39-117); Anion Gap 14 (12-20); Aspartate Amino Transferase 22 U/L (5-31); Bilirubin Total 0.4 mg/dL (0.0-1.0); Blood Urea Nitrogen 30 mg/dL (9-16); Calcium 9.3 mg/dL (8.4-10.2); Carbon Dioxide 23 mmol/L (22-29); Chloride 106 mmol/L (96-108); Estimated Glomerular Filt Rate 42; Glucose Random 122 mg/dL (60-115); Potassium 4.3 mmol/L (3.3-5.1); Sodium 139 mmol/L (135-145); Total Protein 7.2 g/dL (6.5-8.0)
[2023-10-10 17:48] LABS: Vitamin D 25-OH Total 33.2 ng/mL (>30)
[2023-10-13 20:14] LABS: Alk.Phos Iso. Macrohepatic 0 % (<=0); Alk.Phos Isoenzymes Bone 49 % (28-66); Alk.Phos Isoenzymes Intest 14 % (1-24); Alk.Phos Isoenzymes Liver 38 % (25-69); Alk.Phos Isoenzymes Placental 0 % (<=0); Alk.Phos Isoenzymes Total 62 U/L (37-153)
== END 2023-10-10 12:28 | disposition home or self-care (01) ==
LOC: HO.WFDLDS 12:27
PROVIDERS: Visit Provider Internal Medicine
DX: M81.0 Age-related osteoporosis without current pathological fracture (principal); E55.9 Vitamin D deficiency, unspecified
CPT/HCPCS: 36415; 80053; 82306; 84080

== ENCOUNTER 2024-01-23 09:53 | Outpatient (AMB) | payer MEDICARE, SELFPAY ==
--- NOTE | 2024-01-23 10:03 | MHC.OFFWIV ---
Intake Vital Signs 01/23/24 10:09 Height 5 ft 1 in Weight 101 lb 4 oz BMI 19.1 BP 122/70 Blood Pressure Location Rt brachial Position Sitting Respiration 14 Pulse 93 Pulse Source Pulse Oximeter Temp 97.5 F Temp Source Skin Pulse Oximetry (%) 98 Oxygen Delivery Method Room Air Intake Visit Reasons: est/ sinus infection/unsteady Intake Note: patient has had a sinus infection over a week and no appetite or sleep. Patient Tobacco Use Status: Never used Tobacco Allergies Penicillins Allergy (Verified 01/23/24 10:19) Unknown Medication List - Last Reconciled 01/23/24 by Dominga Dean, [employer] amlodipine 5 mg PO DAILY cyanocobalamin (vitamin B-12) 1,000 mcg PO DAILY levothyroxine 75 mcg PO DAILY lisinopril 30 mg PO DAILY HPI HPI Comments History of Present Illness Details 88 y/o F with HTN, hypothyroid here today w/ her dtr w c/o sinus infection that started over 1 week ago her sx include: diarrhea, not sleeping and feeling unsteady. The patient is quite stoic and when asked about any physical complaints, she tells me that they come and go and as they come she takes care of mom and as they go she does not log them. Overall she reports feeling well. The daughter reports that she has a history of recurrent sinus infections and her symptoms generally include unsteady gait, diarrhea and not sleeping. Unsure exactly the date of the last sinus infection, reports that often times she responds well to azithromycin. Denies any at home COVID testing. No OTC meds to help. Denies fever, chills ear pain, sore throat, cough, chest pain. Exam: Awake alert NAD Sclera and conjunctiva clear bilat Nares patent, turbinates pale and edematous, worse on the left, no sinus tenderness with palpation bilat TM intact congestion bilat MMM, pharynx WNL RRR LS CTAB Plan will treat for presumptive sinusitis with azithromycin. Advised the patient to be mindful when ambulating and changing positions to prevent falls. If she does not improve in the next 48-72 hours or if her symptoms worsen, advised need for clinical follow up. Otherwise take antibiotics as directed, supportive care. Fall risk education provided. This note is constructed using voice recognition software. While every effort has been made to ensure accuracy in disintegrator, still errors may have been included Sometimes, these errors may affect the content or meaning of the given sentence . FORMERLY [facility], [facility]–1983 Medical History Colon cancer Surgical History Hx of appendectomy History of colon resection Hx of tonsillectomy Family History Father Brain tumor Mother Colon cancer Sister Lung cancer Social History Household Members Other:: lives alone, 6 daughters, Housing: House Patient Tobacco Use Status: Never used Tobacco e-Cigarette/Vaping Use: Never Used Current occupational status: retired Cognitive needs: No Hearing needs: No Vision needs: Yes Physical Exam Vital Signs: Last Vital Signs Temp 97.5 F 01/23/24 10:09 Pulse 93 01/23/24 10:09 Resp 14 01/23/24 10:09 BP 122/70 01/23/24 10:09 Pulse Ox 98 01/23/24 10:09 Oxygen Delivery Method Room Air 01/23/24 10:09 BMI result Body Mass Index 19.1 Assessment & Plan Assessment & Plan (1) Sinusitis: Code(s): J32.9 - Chronic sinusitis, unspecified Qualifiers: Sinusitis location: pansinusitis Chronicity: acute Recurrence: recurrent Qualified Code(s): J01.41 - Acute recurrent pansinusitis Plan: . Medications: New azithromycin For 250 mg dose pack: take 500 mg today (day 1), then 250 mg for 4 days (days 2-5) PO 5 days 6 tabs 0RF Patient Instructions: What Is It? Sinuses are air-filled spaces behind the bones of the upper face: between the eyes and behind the forehead, nose and cheeks. The lining of the sinuses are made up of cells with tiny hairs on their surfaces called cilia. Other cells in the lining produce mucus. The mucus traps germs and pollutants and the cilia push the mucus out through narrow sinus openings into the nose. When the sinuses become inflamed or infected, the mucus thickens and clogs the openings to one or more sinuses. Fluid builds up inside the sinuses causing increased pressure. Also bacteria can become trapped, multiply and infect the lining. This is sinusitis. Prevention There are some measures you can take to decrease your risk of developing sinusitis. If you smoke cigarettes, you should quit. The smoke can irritate nasal passageways and increase the likelihood of infection. Nasal allergies can trigger sinus infections, too. By identifying the allergen (the substance causing the allergic reaction) and avoiding it, you can help prevent sinusitis. If you have congestion from a cold or allergies, the following may help to reduce the risk of developing sinusitis: Drink lots of water. This thins nasal secretions and keeps mucous membranes moist. Use steam to soothe nasal passages. Breathe deeply while standing in a hot shower, or inhale the vapor from a basin filled with hot water while holding a towel over your head. Avoid blowing your nose with great force, which can push bacteria into the sinuses. Some doctors advise periodic home nasal washings to clear secretions. This may help prevent, and also treat, sinus infections. Treatment Many sinus infections improve without treatment. However, several medications may speed recovery and reduce the chance that an infection will become chronic. Decongestants - Congestion often triggers sinus infections, and decongestants can open the sinuses and allow them to drain. Several are available: Pseudoephedrine (Sudafed) is available without prescription, alone or in combination with other medications in multi-symptom cold and sinus remedies. Pseudoephedrine can cause insomnia, racing pulse and jitteriness. Do not use if you have high blood pressure or a heart condition. Phenylephrine (such as Sudafed PE) is an alternative uzki-gny-mpiougv oral decongestant. If you take products containing oral phenylephrine, check with the pharmacist to be certain there is no interaction with other medications you take. Oxymetazoline (AfrinSarah and others) and phenylephrine (Johnny-Synephrine and others) are found in nasal sprays. They are effective and may be less likely to cause the side effects seen with pseudoephedrine. However, using a nasal decongestant for more than three days can cause worse symptoms when you stop the medication. This is called the rebound effect. Antihistamines - These medications help to relieve the symptoms of nasal allergies that lead to inflammation and infections. However, some doctors advise against using antihistamines during a sinus infection because they can cause excessive drying and slow the drainage process. Grds-kkf-uywnqfr antihistamines include diphenhydramine (Benadryl and others), chlorpheniramine (Chlor-Trimeton and others) and loratadine (Claritin). Fexofenadine (Cande) and cetrizine (Zyrtec) are available by prescription. Nasal steroids - Anti-inflammatory sprays such as mometasone (Nasonex) and fluticasone (Flonase), both available by prescription, reduce swelling of nasal membranes. Like antihistamines, nasal steroids can be most useful for those who have nasal allergies. Nasal steroids tend to produce less drying than antihistamines. Unlike nasal decongestants, nasal steroids can be used for prolonged periods. Saline nasal sprays - These salt-water sprays are safe to use and can provide some relief by adding moisture to the nasal passages, thinning mucus secretions and helping to flush out any bacteria that may be present. Pain relievers - Acetaminophen (Tylenol), ibuprofen (Advil, Motrin and others) or naproxen (Aleve) can be taken sinus pain. Antibiotics - Your doctor may prescribe an antibiotic if he or she suspects that a bacterial infection is causing your sinusitis. If you start taking an antibiotic, complete the entire course so that the infection is completely killed off. Not all cases of sinusitis require antibiotic treatment: Talk with your doctor about whether an antibiotic is right for you. Keep in mind that antibiotics can cause side effects, such as allergic reactions, rash and diarrhea. In addition, overusing antibiotics eventually leads to the spread of bacteria that no longer can be killed by the most commonly prescribed antibiotics. When To Call A Professional Contact a doctor if you experience facial pain along with a headache and fever, cold symptoms that last longer than seven to 10 days, or persistent green discharge from the nose. If your symptoms don't improve within a week of beginning treatment, call your doctor. Call sooner if symptoms are getting worse. If you have repeated bouts of acute sinusitis, you may have allergies or another treatable cause of sinus congestion. Ask your doctor for advice. Coding Level of Care Code Est Pt Level 3 (67298) Diagnoses Acute recurrent pansinusitis J01.41 Sinusitis location: pansinusitis Chronicity: acute Recurrence: recurrent
[2024-01-23 10:09] VITALS: BP 122/70; PULSE 93; RESP 14; TEMP 36.4; O2SAT 98; BMI 19.1
== END 2024-01-23 10:30 | disposition home or self-care (01) ==
PROVIDERS: PCP Internal Medicine; Visit Provider Nurse Practitioner Family
DX: J01.41 Acute recurrent pansinusitis (principal)
CPT/HCPCS: 99213

== ENCOUNTER 2024-02-07 09:08 | Outpatient (REF) | payer MEDICARE, SELFPAY ==
[2024-02-07 12:33] LABS: Alanine Aminotransferase 1084 U/L (0-31); Albumin Level 3.6 g/dL (3.5-5.0); Alkaline Phosphatase 380 U/L (39-117); Aspartate Amino Transferase 1128 U/L (5-31); Bilirubin Direct 0.7 mg/dL (0.0-0.5); Bilirubin Total 1.4 mg/dL (0.0-1.0); Total Protein 7.4 g/dL (6.5-8.0)
== END 2024-02-07 09:09 | disposition home or self-care (01) ==
LOC: HO.WFDLDS 09:08
PROVIDERS: Visit Provider Student in an Organized Health Care Education/Training Program
DX: Z13.89 Encounter for screening for other disorder (principal)
CPT/HCPCS: 36415; 80076

== ENCOUNTER 2024-02-15 13:56 | Outpatient (AMB) | payer MEDICARE, SELFPAY ==
[2024-02-15 13:57] VITALS: BP 118/56; PULSE 75; O2SAT 98; BMI 19.8
--- NOTE | 2024-02-15 13:57 | MHC.PC.OV ---
Vital Signs 02/15/24 13:57 02/15/24 15:19 Height 5 ft 1 in Weight 105 lb BMI 19.8 BP 118/56 L 90/60 Blood Pressure Location Lt brachial Rt brachial Position Sitting Standing Pulse 75 Pulse Source Pulse Oximeter Pulse Oximetry (%) 98 Oxygen Delivery Method Room Air Intake Visit Reasons: Hospital follow up Intake Note: Pt is here today for a Hospital follow up visit. Allergies Penicillins Allergy (Verified 02/15/24 13:58) Unknown Tobacco use date assessed: 02/15/24 Fall risk assessment: 1 Fall in past year Last assessed Fall Risk: 02/15/24 Dental Screening Dental Screen Date: 02/15/24 [facility] Hospital follow up HPI Details Patient presents for the follow-up of hospitalization for syncope. cardiac workup was negative. Neuro workup was negative for acute stroke. 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 A neck CT angiogram showed 50% proximal right internal carotid artery stenosis, status post left carotid endarterectomy without restenosis. Patient was seen by Neurology and started on high dose 80 mg of atorvastatin and clopidogrel with 81 mg of aspirin for 21 days with the recommendation to change to 81 mg aspirin only afterwards. Patient reports feeling tired and generally weak, but denies recurrent syncope weakness or numbness in extremities. Patient's daughter who is a nurse is concerned about patient progressively declining memory and is interested in neurologic evaluation for dementia. [facility] Medical History Colon cancer Surgical History Hx of appendectomy History of colon resection Hx of tonsillectomy Family History Father Brain tumor Mother Colon cancer Sister Lung cancer Social History Household Members Other:: lives alone, 6 daughters, Housing: House Patient Tobacco Use Status: Never used Tobacco e-Cigarette/Vaping Use: Never Used service: No Current occupational status: retired Cognitive needs: No Hearing needs: No Vision needs: Yes Questionnaire Thrive Questionnaire Date Thrive assessed: 02/08/24 I am a: Patient What is your living situation today?: I have a steady place to live Within the past 12 months, did the food you bought not last and you didn't have the money to get more?: Never true Within the past 12 months, did you worry whether your food would run out before you got money to buy more?: Never true Do you have trouble paying for medicines?: No Do you have trouble getting transportation to medical appointments?: No Do you have trouble paying your heating and electricity bill?: No Do you have trouble taking care of your child, family member or friend?: No Do you have trouble with day-to-day activities such as bathing, preparing meals, shopping, managing finances, etc.?: Yes Are you interested in more education?: No Please select the resources that you would like help with: Care for elder or disabled Currently or been in a relationship where the following occur: No concerns reported THRIVE Score: 0 AUDIT C Alcohol Use Questionnaire (AUDIT-C) 1. How often do you have a drink containing alcohol?: Never Total Score: 0 ESTHER-7 AMB Questionnaire ESTHER-7 Date ESTHER - 7 assessed: 08/08/22 Feeling nervous, anxious, or on edge: 0 = Not at all Not being able to stop or control worryin = Not at all Worrying too much about different things: 0 = Not at all Trouble relaxin = Not at all Being so restless that it is hard to sit still: 0 = Not at all Becoming easily annoyed or irritable: 0 = Not at all Feeling afraid as if something awful might happen: 0 = Not at all Total ESTHER-7 score (0-4 normal; 5-9 mild; 10-14 moderate; 15-21 severe): 0 Source: Developed by Drs. Trent Coulter, Keisha Woodson, Blaine Jurado and colleagues, with an educational miah from [employer]. Review of Systems Const All systems reviewed & are unremarkable except as noted in HPI and below Card Reports no additional complaints Resp Reports no additional complaints GI Reports no additional complaints Reports no additional complaints Physical exam (Primary Care) Vital Signs: Last Vital Signs Pulse 75 02/15/24 13:57 BP 118/56 L 02/15/24 13:57 Pulse Ox 98 02/15/24 13:57 Oxygen Delivery Method Room Air 02/15/24 13:57 BMI result Body Mass Index 19.8 Tobacco/Smoking Status: Tobacco use Status Tobacco use date assessed 02/15/24 02/15/24 13:58 Patient Tobacco Use Status Never used Tobacco 02/15/24 13:58 e-Cigarette/Vaping Use Never Used 02/15/24 13:57 Thrive Assessment: Date of Thrive Assessment Date Thrive assessed 02/08/24 02/15/24 13:57 Currently or been in a relationship where the following occur: No concerns reported Const General: no acute distress HENMT Head: Yes normal to inspection Eyes General: appearance normal, both eyes and all related structures Neck Neck: Yes supple Resp Effort & Inspection: normal respiratory effort Auscultation: clear to auscultation bilaterally Cardio Rhythm: regular rhythm Heart sounds: S1 normal heart sound present and S2 normal heart sound present GI Inspection: Yes normal to inspection Palpation (GI): Soft to palpation Percussion: Yes normal to percussion Auscultation: normal bowel sounds Neuro General: CN's II-XI intact bilaterally Gait exam (Neuro): Staggering gait present Motor exam (neuro): 5/5 motor strength present throughout and Pronator motor function not present Assessment and Plan Assessment & Plan (1) Dementia: Comment: Brain MRI 01/2024, atrophy small-vessel disease Code(s): F03.90 - Unspecified dementia, unspecified severity, without behavioral disturbance, psychotic disturbance, mood disturbance, and anxiety Plan: Patient will be referred to Neurology per patient's family request for evaluation of dementia, vitamin B12 level and TSH will be checked (2) Elevated LFTs: Code(s): R79.89 - Other specified abnormal findings of blood chemistry Plan: Blood work from last week was consistent with elevation of LFTs, will obtain repeat comprehensive panel next week and liver ultrasound to evaluate. (3) Hyperlipemia: Code(s): E78.5 - Hyperlipidemia, unspecified Plan: Patient was started on 80 mg of atorvastatin but her daughter is concerned about such a high dose in the fragile older person, she will take half of 80 mg of atorvastatin for now (4) HTN (hypertension): Code(s): I10 - Essential (primary) hypertension Plan: Blood pressure is very low with orthostatic drop, hydralazine will be discontinued. Patient will continue lisinopril and amlodipine follow-up in 1 month (5) Hypothyroidism: Code(s): E03.9 - Hypothyroidism, unspecified Plan: Check TSH on levothyroxine Orders: Orders Comprehensive Met. Panel 1 Week R79.89 - Other specified abnormal findings of blood chemistry Complete Blood Count Auto Diff 1 Week R79.89 - Other specified abnormal findings of blood chemistry Vitamin B12 and Folate 1 Week E53.8 - Deficiency of other specified B group vitamins, E55.9 - Vitamin D deficiency, unspecified, F03.90 - Unspecified dementia, unspecified severity, without behavioral disturbance, psychotic disturbance, mood disturbance, and anxiety Vitamin D 25-OH Total 1 Week E53.8 - Deficiency of other specified B group vitamins, E55.9 - Vitamin D deficiency, unspecified, F03.90 - Unspecified dementia, unspecified severity, without behavioral disturbance, psychotic disturbance, mood disturbance, and anxiety Hepatitis B,C Profile 1 Week R79.89 - Other specified abnormal findings of blood chemistry US abdomen limited Today R79.89 - Other specified abnormal findings of blood chemistry TSH reflex Free T4 1 Week E53.8 - Deficiency of other specified B group vitamins, E55.9 - Vitamin D deficiency, unspecified, F03.90 - Unspecified dementia, unspecified severity, without behavioral disturbance, psychotic disturbance, mood disturbance, and anxiety Referrals Neurology Referral F03.90 - Unspecified dementia, unspecified severity, without behavioral disturbance, psychotic disturbance, mood disturbance, and anxiety Coding Level of Care Code Est Pt Level 4 (61295) Diagnoses Dementia F03.90 Elevated LFTs R79. Hyperlipemia E78.5 HTN (hypertension) I10 Hypothyroidism E03.9
[2024-02-15 15:19] VITALS: BP 90/60
== END 2024-02-15 15:24 | disposition home or self-care (01) ==
PROVIDERS: PCP Internal Medicine; Visit Provider Internal Medicine
DX: F03.90 Unspecified dementia, unspecified severity, without behavioral disturbance, psychotic disturbance, mood disturbance, and anxiety (principal); R79.89 Other specified abnormal findings of blood chemistry; E78.5 Hyperlipidemia, unspecified; I10 Essential (primary) hypertension; E03.9 Hypothyroidism, unspecified

== ENCOUNTER → 2024-02-15 13:56 | Outpatient (BNVA) | payer MEDICARE, SELFPAY | PROVIDERS: PCP Internal Medicine; Visit Provider Internal Medicine | DX: F03.90 Unspecified dementia, unspecified severity, without behavioral disturbance, psychotic disturbance, mood disturbance, and anxiety (principal); R79.89 Other specified abnormal findings of blood chemistry; E78.5 Hyperlipidemia, unspecified; I10 Essential (primary) hypertension; E03.9 Hypothyroidism, unspecified | CPT/HCPCS: 99212 ==

== ENCOUNTER 2024-02-21 07:55 | Outpatient (REF) | payer MEDICARE, SELFPAY ==
--- NOTE | ~2024-02-21 | US_ITS ---
EXAMINATION: US ABDOMEN LIMITED CLINICAL INFORMATION: Elevated LFTs. COMPARISON: None available. TECHNIQUE: Real-time imaging of the right upper quadrant abdominal viscera. FINDINGS: PANCREAS: Normal. A small peripancreatic lymph node present measuring 1.7 x 0.7 x 0.6 cm. LIVER: The liver is normal in size. The liver contour is normal. Parenchymal echogenicity is normal. A benign cyst measuring 1.4 cm is present in the left lobe of the liver . No concerning solid masses seen. There is no intrahepatic biliary duct dilatation seen. GALLBLADDER: Some mild subtle nodular abnormalities are noted along the gallbladder wall which may represent cholesterolosis. The gallbladder is physiologically distended without evidence of stones, sludge, polyps or pericholecystic fluid. Hickman's sign is negative. COMMON BILE DUCT: Mildly dilated measuring 0.7 cm in diameter. RIGHT KIDNEY: No hydronephrosis. No renal calculi or focal parenchymal lesions. The kidney measures 9.1 cm in maximum dimension. FREE FLUID: None. US/US abdomen limited IMPRESSION: Incidental note made of a benign hepatic cyst, mildly dilated common bile duct and possible cholesterolosis in the gallbladder. Electronically signed by: Carlos Austin MD 02/21/2024 11:04 AM EDT
[2024-02-21 08:56] LABS: MANUAL DIFF FLAG NO
[2024-02-21 09:11] LABS: Basophils Absolute Auto 0.1 X10*3/uL (0.0-0.2); Eosinophils Absolute Auto 0.4 X10*3/uL (0.0-0.4); Eosinophils Percent Auto 6.3 % (0-4); Hematocrit 34.5 % (37.0-47.0); Hemoglobin 11.6 g/dl (12.0-16.0); Imm Gran Abs Auto 0.02 X10*3/uL (0.00-0.03); Imm Gran Pct Auto 0.3 % (0.0-0.4); Lymphocytes Absolute Auto 1.2 X10*3/uL (1.2-4.9); Lymphocytes Percent Auto 20.6 % (20-40); Mean Corpuscular HGB Conc 33.6 g/dl (31.0-35.0); Mean Corpuscular Hemoglobin 32.3 pg (27.0-33.0); Mean Corpuscular Volume 96.1 fL (80.0-98.0); Mean Platelet Volume 11.6 fL (9.4-12.3); Monocytes Absolute Auto 0.5 X10*3/uL (0.1-1.2); Monocytes Percent Auto 8.5 % (2-11); Neutrophils Absolute Auto 3.6 x10*3/uL (2.0-8.3); Neutrophils Percent Auto 63.3 % (45-73); Platelet Count 196 X10*3/uL (160-400); Red Blood Count 3.59 X10*6/uL (4.20-5.50); Red Cell Distribution Width 12.4 % (11.0-16.0); White Blood Count 5.7 X10*3/uL (4.8-10.8)
[2024-02-21 09:47] LABS: Alanine Aminotransferase 58 U/L (0-31); Albumin Level 3.9 g/dL (3.5-5.0); Alkaline Phosphatase 226 U/L (39-117); Anion Gap 11 (12-20); Aspartate Amino Transferase 34 U/L (5-31); Bilirubin Total 0.5 mg/dL (0.0-1.0); Blood Urea Nitrogen 26 mg/dL (9-16); Calcium 9.6 mg/dL (8.4-10.2); Carbon Dioxide 26 mmol/L (22-29); Chloride 107 mmol/L (96-108); Estimated Glomerular Filt Rate 60; Glucose Random 95 mg/dL (60-115); Potassium 3.6 mmol/L (3.3-5.1); Sodium 140 mmol/L (135-145); Total Protein 7.7 g/dL (6.5-8.0)
[2024-02-21 09:53] LABS: TSH reflex Free T4 0.13 uIU/mL (0.32-4.0); Vitamin D 25-OH Total 38.3 ng/mL (>30)
[2024-02-21 10:02] LABS: HBS Num1 0.46 mIU/mL (0-7.99); HBc Num1 0.11 S/CO (0.00-0.79); HBsAGNum1 0.31 S/CO (0.00-0.99); Hepatitis B Core Antibody Nonreactive (Nonreactive); Hepatitis B Surface Antigen Negative (Negative); ~HepC Num1 0.09 S/CO (0.00-0.79); ~Hepatitis B Surface Antibody NONREACTIVE (Nonreactive); ~Hepatitis C Antibody Nonreactive (Nonreactive)
[2024-02-21 10:13] LABS: Folate 12.3 ng/mL (> or = 4.0); Vitamin B12 534 pg/mL (200-900)
[2024-02-21 10:24] LABS: Free T4 (Free Thyroxine) 1.27 ng/dL (0.71-1.85)
== END 2024-02-21 07:56 | disposition home or self-care (01) ==
LOC: HO.US 07:55
PROVIDERS: PCP Internal Medicine; Visit Provider Internal Medicine
DX: R79.89 Other specified abnormal findings of blood chemistry (principal); F03.90 Unspecified dementia, unspecified severity, without behavioral disturbance, psychotic disturbance, mood disturbance, and anxiety; E53.8 Deficiency of other specified B group vitamins; E55.9 Vitamin D deficiency, unspecified
CPT/HCPCS: 36415; 76705; 80053; 82306; 82607; 82746; 84439; 84443; 85025; 86704; 86706; 86803; 87340

== ENCOUNTER 2024-03-18 10:50 | Outpatient (AMB) | payer MEDICARE, SELFPAY ==
[2024-03-18 10:58] VITALS: BP 126/64; PULSE 83; O2SAT 98; BMI 19.8
--- NOTE | 2024-03-18 10:58 | MHC.PC.OV ---
Vital Signs 03/18/24 10:58 Height 5 ft 1 in Weight 105 lb BMI 19.8 BP 126/64 Blood Pressure Location Lt brachial Position Sitting Pulse 83 Pulse Source Pulse Oximeter Pulse Oximetry (%) 98 Oxygen Delivery Method Room Air Intake Visit Reasons: Follow up Health care proxy Allergies Penicillins Allergy (Verified 03/18/24 11:04) Unknown Medication List - Last Reconciled 03/18/24 by Argelia Hutchins MD amlodipine 10 mg PO DAILY aspirin 81 mg PO .q AM atorvastatin 20 mg PO BEDTIME levothyroxine 75 mcg PO DAILY lisinopril 40 mg PO DAILY Tobacco use date assessed: 03/18/24 Dental Screening Dental Screen Date: 02/15/24 HPI Follow up Health care proxy HPI Details PATIENT PRESENTS FOR THE FOLLOW-UP ON HYPERTENSION HYPERLIPIDEMIA HYPOTHYROIDISM. She has been walking with a cane and has improved appetite. Patient's family is providing 24 hour, 7 days a week supervision but patient lives alone. [facility] Medical History Colon cancer Surgical History Hx of appendectomy History of colon resection Hx of tonsillectomy Family History Father Brain tumor Mother Colon cancer Sister Lung cancer Social History Household Members Other:: lives alone, 6 daughters, Housing: House Patient Tobacco Use Status: Never used Tobacco e-Cigarette/Vaping Use: Never Used service: No Current occupational status: retired Cognitive needs: No Hearing needs: No Vision needs: Yes Questionnaire Thrive Questionnaire Date Thrive assessed: 02/08/24 I am a: Patient What is your living situation today?: I have a steady place to live Within the past 12 months, did the food you bought not last and you didn't have the money to get more?: Never true Within the past 12 months, did you worry whether your food would run out before you got money to buy more?: Never true Do you have trouble paying for medicines?: No Do you have trouble getting transportation to medical appointments?: No Do you have trouble paying your heating and electricity bill?: No Do you have trouble taking care of your child, family member or friend?: No Do you have trouble with day-to-day activities such as bathing, preparing meals, shopping, managing finances, etc.?: Yes Are you currently unemployed and looking for a job?: I choose not to answer this question Are you interested in more education?: No Please select the resources that you would like help with: Care for elder or disabled Currently or been in a relationship where the following occur: No concerns reported THRIVE Score: 0 ESTHER-7 AMB Questionnaire ESTHER-7 Date ESTHER - 7 assessed: 08/08/22 Source: Developed by Drs. Trent Coulter, Keisha Woodson, Blaine Jurado and colleagues, with an educational miah from [employer]. Review of Systems Const All systems reviewed & are unremarkable except as noted in HPI and below ENT Reports no additional complaints Card Reports no additional complaints Resp Reports no additional complaints GI Reports no additional complaints Reports no additional complaints Physical exam (Primary Care) Vital Signs: Last Vital Signs Pulse 83 03/18/24 10:58 BP 126/64 03/18/24 10:58 Pulse Ox 98 03/18/24 10:58 Oxygen Delivery Method Room Air 03/18/24 10:58 BMI result Body Mass Index 19.8 Tobacco/Smoking Status: Tobacco use Status Tobacco use date assessed 03/18/24 03/18/24 11:05 Patient Tobacco Use Status Never used Tobacco 03/18/24 11:01 e-Cigarette/Vaping Use Never Used 03/18/24 11:01 Thrive Assessment: Date of Thrive Assessment Date Thrive assessed 02/08/24 03/18/24 11:01 Currently or been in a relationship where the following occur: No concerns reported Const General: no acute distress HENMT Head: Yes normal to inspection Face and sinus: Yes normal facial exam Eyes General: appearance normal, both eyes and all related structures Resp Effort & Inspection: normal respiratory effort Auscultation: clear to auscultation bilaterally Cardio Rhythm: regular rhythm Heart sounds: S1 normal heart sound present and S2 normal heart sound present GI Inspection: Yes normal to inspection Palpation (GI): Soft to palpation Percussion: Yes normal to percussion Auscultation: normal bowel sounds Coding Level of Care Code Est Pt Level 4 (82274) Diagnoses HTN (hypertension) I10 Hypothyroidism E03.9 Hyperlipemia E78.5 Elevated LFTs R79.89 Anemia D64.9 Assessment & Plan Assessment & Plan (1) HTN (hypertension): Code(s): I10 - Essential (primary) hypertension Category: Medical Plan: Continue current medications (2) Hypothyroidism: Code(s): E03.9 - Hypothyroidism, unspecified Category: Medical Plan: Continue levothyroxine (3) Hyperlipemia: Code(s): E78.5 - Hyperlipidemia, unspecified Category: Medical Plan: Continue statin (4) Elevated LFTs: Code(s): R79.89 - Other specified abnormal findings of blood chemistry Category: Medical Plan: Improving, rechecked in 1 month (5) Anemia: Comment: Multifactorial normal iron and B12 level 07/13 Code(s): D64.9 - Anemia, unspecified Category: Medical Plan: Monitor CBC Orders: Orders Comprehensive [place]. Panel Fast 1 Month E03.9 - Hypothyroidism, unspecified, E78.5 - Hyperlipidemia, unspecified, I10 - Essential (primary) hypertension, R79.89 - Other specified abnormal findings of blood chemistry Lipid Panel 1 Month E03.9 - Hypothyroidism, unspecified, E78.5 - Hyperlipidemia, unspecified, I10 - Essential (primary) hypertension, R79.89 - Other specified abnormal findings of blood chemistry Complete Blood Count Auto Diff 1 Month E03.9 - Hypothyroidism, unspecified, E78.5 - Hyperlipidemia, unspecified, I10 - Essential (primary) hypertension, R79.89 - Other specified abnormal findings of blood chemistry TSH reflex Free T4 1 Month E03.9 - Hypothyroidism, unspecified, E78.5 - Hyperlipidemia, unspecified, I10 - Essential (primary) hypertension, R79.89 - Other specified abnormal findings of blood chemistry IRON PROFILE 1 Month D64.9 - Anemia, unspecified Medications: New aspirin 81 mg PO .q AM 90 tabs 3RF Changed From amlodipine 10 mg PO DAILY 30 tabs 3RF To amlodipine 10 mg PO .QHS 90 tabs 3RF
== END 2024-03-18 11:39 | disposition home or self-care (01) ==
LOC: HO.HMCC 10:51
PROVIDERS: PCP Internal Medicine; Visit Provider Internal Medicine
DX: I10 Essential (primary) hypertension (principal); E03.9 Hypothyroidism, unspecified; E78.5 Hyperlipidemia, unspecified; R79.89 Other specified abnormal findings of blood chemistry; D64.9 Anemia, unspecified

== ENCOUNTER → 2024-03-18 10:50 | Outpatient (BNVA) | payer MEDICARE, SELFPAY | PROVIDERS: PCP Internal Medicine; Visit Provider Internal Medicine | DX: I10 Essential (primary) hypertension (principal); E03.9 Hypothyroidism, unspecified; E78.5 Hyperlipidemia, unspecified; D64.9 Anemia, unspecified; R79.89 Other specified abnormal findings of blood chemistry | CPT/HCPCS: 99212 ==

== ENCOUNTER 2024-04-22 09:19 | Outpatient (REF) | payer MEDICARE, SELFPAY ==
[2024-04-22 11:12] LABS: MANUAL DIFF FLAG NO
[2024-04-22 11:22] LABS: Basophils Absolute Auto 0.1 X10*3/uL (0.0-0.2); Basophils Percent Auto 0.9 % (0-2); Eosinophils Absolute Auto 0.4 X10*3/uL (0.0-0.4); Eosinophils Percent Auto 7.9 % (0-4); Hematocrit 33.1 % (37.0-47.0); Hemoglobin 11.3 g/dl (12.0-16.0); Imm Gran Abs Auto 0.01 X10*3/uL (0.00-0.03); Imm Gran Pct Auto 0.2 % (0.0-0.4); Lymphocytes Absolute Auto 1.6 X10*3/uL (1.2-4.9); Lymphocytes Percent Auto 29.6 % (20-40); Mean Corpuscular HGB Conc 34.1 g/dl (31.0-35.0); Mean Corpuscular Hemoglobin 32.4 pg (27.0-33.0); Mean Corpuscular Volume 94.8 fL (80.0-98.0); Mean Platelet Volume 11.9 fL (9.4-12.3); Monocytes Absolute Auto 0.5 X10*3/uL (0.1-1.2); Monocytes Percent Auto 8.8 % (2-11); Neutrophils Absolute Auto 2.9 x10*3/uL (2.0-8.3); Neutrophils Percent Auto 52.6 % (45-73); Platelet Count 158 X10*3/uL (160-400); Red Blood Count 3.49 X10*6/uL (4.20-5.50); Red Cell Distribution Width 11.8 % (11.0-16.0); White Blood Count 5.4 X10*3/uL (4.8-10.8)
[2024-04-22 12:15] LABS: Alanine Aminotransferase 28 U/L (0-31); Albumin Level 3.9 g/dL (3.5-5.0); Alkaline Phosphatase 88 U/L (39-117); Anion Gap 10 (12-20); Aspartate Amino Transferase 37 U/L (5-31); Bilirubin Total 0.5 mg/dL (0.0-1.0); Blood Urea Nitrogen 23 mg/dL (9-16); Calcium 8.8 mg/dL (8.4-10.2); Carbon Dioxide 29 mmol/L (22-29); Chloride 106 mmol/L (96-108); Cholesterol 116 mg/dL (<200); Estimated Glomerular Filt Rate 54; Glucose Fasting 93 mg/dL (60-99); HDL Cholesterol 39 mg/dL (>40); Iron 59 mcg/dL (30-160); LDL Cholesterol Calculated 60 mg/dL (<100); Percent Iron Saturation 26 % (15-50); Sodium 141 mmol/L (135-145); Total Iron Binding Capacity 227 mcg/dL (228-428); Total Protein 7.2 g/dL (6.5-8.0); Triglycerides 85 mg/dL (<150); Unsaturated Iron Binding 168 ug/dL
[2024-04-22 12:20] LABS: TSH reflex Free T4 < 0.01 uIU/mL (0.32-4.0)
[2024-04-22 13:07] LABS: Free T4 (Free Thyroxine) 1.64 ng/dL (0.71-1.85)
== END 2024-04-22 09:20 | disposition home or self-care (01) ==
LOC: HO.WFDLDS 09:19
PROVIDERS: Visit Provider Internal Medicine
DX: I10 Essential (primary) hypertension (principal); D64.9 Anemia, unspecified; E03.9 Hypothyroidism, unspecified; E78.5 Hyperlipidemia, unspecified; R79.89 Other specified abnormal findings of blood chemistry
CPT/HCPCS: 36415; 80053; 80061; 83540; 84439; 84443; 85025

== ENCOUNTER 2024-04-25 10:42 | Outpatient (AMB) | payer MEDICARE, SELFPAY ==
--- NOTE | 2024-04-25 10:46 | MHC.PC.OV ---
Vital Signs 04/25/24 10:47 Height 5 ft 1 in Weight 107 lb BMI 20.2 BP 118/58 L Blood Pressure Location Lt brachial Position Sitting Pulse 92 Pulse Source Pulse Oximeter Pulse Oximetry (%) 98 Oxygen Delivery Method Room Air Intake Visit Reasons: 1 month follow up Intake Note: Pt is here today for 1 month follow up visit. Allergies Penicillins Allergy (Verified 04/25/24 10:51) Unknown Medication List - Last Reconciled 04/25/24 by Argelia Hutchins MD amlodipine 10 mg PO .QHS aspirin 81 mg PO .q AM atorvastatin 20 mg PO BEDTIME levothyroxine 75 mcg PO DAILY lisinopril 40 mg PO DAILY Tobacco use date assessed: 04/25/24 Dental Screening Dental Screen Date: 02/15/24 HPI 1 month follow up HPI Details Patient presents for the follow-up on hypertension hyperlipidemia hypothyroidism PFSH Medical History Colon cancer Surgical History Hx of appendectomy History of colon resection Hx of tonsillectomy Family History Father Brain tumor Mother Colon cancer Sister Lung cancer Social History Household Members Other:: lives alone, 6 daughters, Housing: House Patient Tobacco Use Status: Never used Tobacco e-Cigarette/Vaping Use: Never Used service: No Current occupational status: retired Cognitive needs: No Hearing needs: No Vision needs: Yes Questionnaire PHQ-9 Over the last 2 weeks, how often have you been bothered by any of the following problems? 1. Little interest or pleasure in doing things: not at all 2. Feeling down, depressed, or hopeless: not at all 3. Trouble falling or staying asleep, or sleeping too much: several days 4. Feeling tired or having little energy: not at all 5. Poor appetite or overeating: not at all 6. Feeling bad about yourself - or that you are a failure or have let yourself or your family down: not at all 7. Trouble concentrating on things, such as reading the newspaper or watching television: not at all 8. Moving or speaking so slowly that other people could have noticed. Or the opposite - being so fidgety or restless that you have been moving around a lot more than usual: not at all 9. Thoughts that you would be better off or of hurting yourself in some way: not at all Total score: 1 Depression Screening Interpretation: Negative Depression Screening Done: Yes 60321 - PHQ-9 Billing: Yes Source: Developed by Drs. Trent Coulter, Keisha Woodson, Blaine Jurado and colleagues, with an educational miah from [employer]. Thrive Questionnaire Date Thrive assessed: 04/25/24 I am a: Patient What is your living situation today?: I have a steady place to live Within the past 12 months, did the food you bought not last and you didn't have the money to get more?: Never true Within the past 12 months, did you worry whether your food would run out before you got money to buy more?: Never true Do you have trouble paying for medicines?: No Do you have trouble getting transportation to medical appointments?: No Do you have trouble paying your heating and electricity bill?: No Do you have trouble taking care of your child, family member or friend?: No Do you have trouble with day-to-day activities such as bathing, preparing meals, shopping, managing finances, etc.?: Yes Are you currently unemployed and looking for a job?: I choose not to answer this question Are you interested in more education?: No Please select the resources that you would like help with: Care for elder or disabled Currently or been in a relationship where the following occur: No concerns reported THRIVE Score: 0 ESTHER-7 AMB Questionnaire ESTHER-7 Date ESTHER - 7 assessed: 04/25/24 Feeling nervous, anxious, or on edge: 0 = Not at all Not being able to stop or control worryin = Not at all Worrying too much about different things: 0 = Not at all Trouble relaxin = Not at all Being so restless that it is hard to sit still: 0 = Not at all Becoming easily annoyed or irritable: 0 = Not at all Feeling afraid as if something awful might happen: 0 = Not at all Total ESTHER-7 score (0-4 normal; 5-9 mild; 10-14 moderate; 15-21 severe): 0 Source: Developed by Drs. Trent Coulter, Keisha Woodson, Blaine Jurado and colleagues, with an educational miah from [employer]. ESTHER-7 Assessment Billing ESTHER-7 Assessment Tool: ESTHER-7 Assessment 39730 Review of Systems Const All systems reviewed & are unremarkable except as noted in HPI and below ENT Reports no additional complaints Card Reports no additional complaints Resp Reports no additional complaints GI Reports no additional complaints Reports no additional complaints Physical exam (Primary Care) Vital Signs: Last Vital Signs Pulse 92 04/25/24 10:47 BP 118/58 L 04/25/24 10:47 Pulse Ox 98 04/25/24 10:47 Oxygen Delivery Method Room Air 04/25/24 10:47 BMI result Body Mass Index 20.2 Tobacco/Smoking Status: Tobacco use Status Tobacco use date assessed 04/25/24 04/25/24 10:54 Patient Tobacco Use Status Never used Tobacco 04/25/24 10:54 e-Cigarette/Vaping Use Never Used 04/25/24 10:54 PHQ-9: PHQ-9 Score PHQ-9: Total score 1 04/25/24 11:28 Depression Screening Interpretation: Negative Thrive Assessment: Date of Thrive Assessment Date Thrive assessed 04/25/24 04/25/24 10:54 Currently or been in a relationship where the following occur: No concerns reported Const General: no acute distress HENMT Face and sinus: Yes normal facial exam Eyes General: appearance normal, both eyes and all related structures Resp Effort & Inspection: normal respiratory effort Auscultation: clear to auscultation bilaterally Cardio Rhythm: regular rhythm Heart sounds: S1 normal heart sound present and S2 normal heart sound present GI Inspection: Yes normal to inspection Palpation (GI): Soft to palpation Percussion: Yes normal to percussion Auscultation: normal bowel sounds Coding Level of Care Code Est Pt Level 4 (85322) Diagnoses HTN (hypertension) I10 Hypothyroidism E03.9 Vitamin B 12 deficiency E53.8 Anemia D64.9 Additional Codes ESTHER-7 Assessment Billing - ESTHER-7 Assessment Tool: ESTHER-7 Assessment 13114 ([id number]) PHQ-9 - 84509 - PHQ-9 Billing: Yes ([id number]) Assessment & Plan Assessment & Plan (1) HTN (hypertension): Code(s): I10 - Essential (primary) hypertension Category: Medical Plan: Continue medications (2) Hypothyroidism: Code(s): E03.9 - Hypothyroidism, unspecified Category: Medical Plan: Decrease levothyroxine to half a tablet of 75 mcg once a week and repeat TSH in 2 months. (3) Vitamin B 12 deficiency: Code(s): E53.8 - Deficiency of other specified B group vitamins Category: Medical Plan: Continue vitamin B12 supplement (4) Anemia: Comment: Multifactorial normal iron and B12 level 07/13 Code(s): D64.9 - Anemia, unspecified Category: Medical Plan: Monitor CBC Orders: Orders Complete Blood Count Auto Diff 4 Months D64.9 - Anemia, unspecified, E03.9 - Hypothyroidism, unspecified, E53.8 - Deficiency of other specified B group vitamins, I10 - Essential (primary) hypertension Vitamin B12 and Folate 4 Months D64.9 - Anemia, unspecified, E03.9 - Hypothyroidism, unspecified, E53.8 - Deficiency of other specified B group vitamins, I10 - Essential (primary) hypertension Lipid Panel 4 Months D64.9 - Anemia, unspecified, E03.9 - Hypothyroidism, unspecified, E53.8 - Deficiency of other specified B group vitamins, I10 - Essential (primary) hypertension TSH reflex Free T4 2 Months E03.9 - Hypothyroidism, unspecified, I10 - Essential (primary) hypertension TSH reflex Free T4 4 Months D64.9 - Anemia, unspecified, E03.9 - Hypothyroidism, unspecified, E53.8 - Deficiency of other specified B group vitamins, I10 - Essential (primary) hypertension Comprehensive [place]. Panel Fast 4 Months D64.9 - Anemia, unspecified, E03.9 - Hypothyroidism, unspecified, E53.8 - Deficiency of other specified B group vitamins, I10 - Essential (primary) hypertension Medications: Changed From levothyroxine 75 mcg PO DAILY 30 tabs 3RF To levothyroxine 1 tabl qd for 6 days, 1/2 tabl for 1 days 75 mcg PO DAILY 90 tabs 3RF
[2024-04-25 10:47] VITALS: BP 118/58; PULSE 92; O2SAT 98; BMI 20.2
== END 2024-04-25 12:38 | disposition home or self-care (01) ==
PROVIDERS: PCP Internal Medicine; Visit Provider Internal Medicine
DX: I10 Essential (primary) hypertension (principal); E03.9 Hypothyroidism, unspecified; E53.8 Deficiency of other specified B group vitamins; D64.9 Anemia, unspecified

== ENCOUNTER → 2024-04-25 10:42 | Outpatient (BNVA) | payer MEDICARE, SELFPAY | PROVIDERS: PCP Internal Medicine; Visit Provider Internal Medicine | DX: I10 Essential (primary) hypertension (principal); E03.9 Hypothyroidism, unspecified; D64.9 Anemia, unspecified; E53.8 Deficiency of other specified B group vitamins | CPT/HCPCS: 96127; 99212 ==

== ENCOUNTER 2024-09-18 08:53 | Outpatient (REF) | payer MEDICARE, SELFPAY ==
--- OUTSIDE RECORDS SUMMARY | 2024-09-18 09:19 | XMS_ITS | Clinical Summary ---
Author Organization [facility] Address [address] [place] [address] Phone Care Team Providers Care Casing Splitter Name Role Phone Letty Rossi CAMP ASSISTANT Primary Care Provider Allergies Active Allergy Reactions Criticality Noted Date Comments Penicillins 05/11/2023 Medications aspirin 81 mg chewable tablet Chew 1 tablet (81 mg total) 1 (one) time each day. Active atorvastatin (LIPITOR) 10 mg tablet Take 8 mg by mouth daily. Active clopidogreL (PLAVIX) 75 mg tablet Take 1 tablet (75 mg total) by mouth 1 (one) time each day. Active CYANOCOBALAMIN, VITAMIN B-12, ORAL Take 1 Tablet by mouth daily. Active levothyroxine (SYNTHROID, LEVOTHROID) 75 mcg tablet Take 1 tablet (75 mcg total) by mouth 1 (one) time each day. Active lisinopriL (PRINIVIL,ZESTRI L) 30 mg tablet Take 1 tablet (30 mg total) by mouth 1 (one) time each day. Active melatonin 5 mg tablet Take 1 Tablet by mouth as needed. Active Encounters Date Type Department Care Team Description 08/26/2024 1:14 PM EDT - 08/26/2024 11:59 PM EDT Hospital Encounter [facility] Ultrasound [address] [place] [address] Stenosis of artery ([facility] V24) Discharge Disposition: Home or Self Care from Last 3 Months Surgical History Surgery Date Site/Laterality Comments OTHER SURGICAL HISTORY 04/25/2023 Left PROCEDURE: [place] TEAEC W/PATCH GRF CAROTID VERTB SUBCLAV NECK INC Social History Tobacco Use Types Packs/Day Years Used Date Smoking Tobacco: Never Assessed Comments Unknown Sex and Gender Information Value Date Recorded Sex Assigned at Female 08/22/2024 11:59 AM EDT Legal Sex Female 9:04 AM EST Gender Identity Female 08/22/2024 11:59 AM EDT Sexual Orientation Straight 08/22/2024 12 :02 PM EDT Obstetrics History Last Filed Vital Signs Vital Sign Reading Time Taken Comments Blood Pressure 148/60 09/13/2023 2:45 PM EDT L A rm Pulse 64 09/13/2023 2:45 PM EDT Temperature - - Respiratory Rate - - Oxygen Saturation - - Inhaled Oxygen Concentration - - Weight 45.5 kg (100 lb 6.4 oz) 09/13/2023 2:38 P M EDT Height 152.4 cm (5') 09/13/2023 2:38 PM EDT Body Mass Index 19.61 09/13/2023 2:38 PM EDT Plan of Treatment Upcoming Encounters Date Type Department Care Team (Late st Contact Info) Description 09/19/2024 2:00 PM EDT Office Visit Vascular Surgery - [place] [address] [place] [address] Eh Brower MD [address] [place] [address] Health Maintenance Due Date Last Done Comments DTaP,Tdap,and Td Vaccines (1 - Tdap) 02/16/1954 Pneumococcal Vaccine: 50+ Years (1 of 1 - PCV) 02/16/1986 Zoster Vaccines (1 of 2) 02/16/1986 RSV Immunization Adult Patients (1 - 1-dose 75+ series) 02/16/2011 Cholesterol Screening (Lipid Panel) 06/19/2023 Depression Screening 06/19/2023 Falls Risk Assessment 06/19/2023 Medicare Annual Wellness Visit 06/19/2023 Osteoporosis Screening (Bone Density Screening) 06/19/2023 Social Influencers of Health Screening 06/19/2023 COVID-19 Vaccine (3 - 2023-2 5 season) 2024 05/09/2021, 09/24/2020 Hypertension/CHF/CAD Annual BMP Blood Test 08/26/2024 Influenza Vaccine (Season Ended) 2025 HIB Vaccines Aged Out No longer eligi ble based on patient's age to complete this topic HPV Vaccines Aged Out No longer eligi ble based on patient's age to complete this topic Hepatitis A Vaccines Aged Out No long er eligible based on patient's age to complete this topic Hepatitis B Vaccines Aged Out No long er eligible based on patient's age to complete this topic IPV Vaccines Aged Out No longer eligi ble based on patient's age to complete this topic MMR Vaccines Aged Out No longer eligi ble based on patient's age to complete this topic Meningococcal ACWY Vaccine Aged Out N o longer eligible based on patient's age to complete this topic Meningococcal B Vaccine Aged Out No l onger eligible based on patient's age to complete this topic RSV Immunization Patients Under 20 months Aged Out No longer eligible b ased on patient's age to complete this topic Varicella Vaccines Aged Out No longer eligible based on patient's age to complete this topic Procedures Procedure Name Priority Date/Time Associated Diagnosis Comments VAS US DUPLEX CAROTID BILATERAL Routine 08/26/2024 2:12 PM EDT Stenosis of artery ([facility] V24) from Last 3 Months Results * Vascular US duplex carotid bilateral (08/26/2024 2:12 PM EDT) Anatomical Region Laterality Modality Vascular, Abdomen Ultrasound 08/26/2024 3:16 PM EDT Impressions 08/26/2024 3:20 PM EDT Focally elevated peak systolic velocity in the proximal right internal carotid artery measuring 253 cm/s. ??This velocity is suggestive of a 70-89% stenosis. ??The ICA/CCA ratio is 2.8, which suggests a 50-69% stenosis. -------- FINAL REPORT -------- Dictated By: Juan Francisco Queen Dictated Date: 08/26/2024 15:16 ET Assigned Physician: Juan Francisco Queen Reviewed and Electronically Signed By: Juan Francisco Queen Signed Date: 08/26/2024 15:20 ET Workstation ID: [id number] Transcribed By: Self Edit Transcribed Date: 08/26/2024 15:16 ET Narrative 08/26/2024 3:20 PM EDT PROCEDURE: Carotid ultrasound. HISTORY: stenosis. TECHNIQUE: Grayscale, color Doppler, and spectral Doppler ultrasound evaluation of the carotid and vertebral arteries in the neck. COMPARISON: FINDINGS: Calcified shadowing plaque at the right carotid bulb with an elevated peak systolic velocity in the proximal right internal carotid artery measuring 253 cm/s. ??The left bulb and bifurcation are suboptimally visualized secondary to tortuosity. ??No visible left carotid velocity elevation. Internal carotid arteries/CCA ratio of 2.8 on the right and 1.5 on the left. Antegrade flow with normal spectral Doppler tracings in both vertebral arteries. Procedure Note Juan Francisco Queen MD - 08/26/2024 PROCEDURE: Carotid ultrasound. HISTORY: stenosis. TECHNIQUE: Grayscale, color Doppler, and spectral Doppler ultrasoundevaluation of the carotid and vertebral arteries in the neck. COMPARISON: FINDINGS: Calcified shadowing plaque at the right carotid bulb with an elevated peaksystolic velocity in the proximal right internal carotid artery [id number] cm/s. The left bulb and bifurcation are suboptimally visualizedsecondary to tortuosity. No visible left carotid velocity elevation. Internal carotid arteries/CCA ratio of 2.8 on the right and 1.5 on theleft. Antegrade flow with normal spectral Doppler tracings in both vertebralarteries. IMPRESSION: Focally elevated peak systolic velocity in the proximal right internalcarotid artery measuring 253 cm/s. This velocity is suggestive of a70-89% stenosis. The ICA/CCA ratio is 2.8, which suggests a 50-69%stenosis. -------- FINAL REPORT -------- Dictated By: Juan Francisco Queen Dictated Date: 08/26/2024 15:16 ET Assigned Physician: Juan Francisco Queen Reviewed and Electronically Signed By: Juan Francisco Queen Signed Date: 08/26/2024 15:20 ET Workstation ID: [id number] Transcribed By: Self Edit Transcribed Date: 08/26/2024 15:16 ET us Phylicia Garcia MD CV VASCULAR PROCEDURES Fi nal Result from Last 3 [place] [address] MEDICARE Advance Directives Documents on File Type Date Recorded Patient Residential Collections Expl anation Health Care Decision (hx) 02/06/2024 AD HILL DIRECTIVE Health Care Decision (hx) 01/28/2024 HE ALTH CARE PROXY Health Care Decision (hx) 01/28/2024 HE ALTH CARE PROXY Health Care Decision (hx) 04/30/2023 AD HILL DIRECTIVE Health Care Decision (hx) 04/30/2023 AD HILL DIRECTIVE Health Care Decision (hx) 04/30/2023 AD HILL DIRECTIVE Health Care Decision (hx) 04/30/2023 AD HILL DIRECTIVE Health Care Decision (hx) 04/30/2023 AD HILL DIRECTIVE Care Teams Casing Splitter Relationship Specialty Start Date End Date Letty Rossi NP [id number] [address] PCP - General Nurse Practitioner 08/22/24
[2024-09-18 11:23] LABS: MANUAL DIFF FLAG NO
[2024-09-18 11:33] LABS: Basophils Percent Auto 0.7 % (0-2); Eosinophils Absolute Auto 0.3 X10*3/uL (0.0-0.4); Eosinophils Percent Auto 7.2 % (0-4); Hematocrit 34.3 % (37.0-47.0); Hemoglobin 11.5 g/dl (12.0-16.0); Imm Gran Abs Auto 0.01 X10*3/uL (0.00-0.03); Imm Gran Pct Auto 0.2 % (0.0-0.4); Lymphocytes Absolute Auto 1.2 X10*3/uL (1.2-4.9); Lymphocytes Percent Auto 27.1 % (20-40); Mean Corpuscular HGB Conc 33.5 g/dl (31.0-35.0); Mean Corpuscular Hemoglobin 31.5 pg (27.0-33.0); Mean Platelet Volume 12.8 fL (9.4-12.3); Monocytes Absolute Auto 0.4 X10*3/uL (0.1-1.2); Neutrophils Absolute Auto 2.4 x10*3/uL (2.0-8.3); Neutrophils Percent Auto 55.8 % (45-73); Platelet Count 142 X10*3/uL (160-400); Red Blood Count 3.65 X10*6/uL (4.20-5.50); Red Cell Distribution Width 11.9 % (11.0-16.0); White Blood Count 4.3 X10*3/uL (4.8-10.8)
[2024-09-18 12:03] LABS: Alanine Aminotransferase 22 U/L (0-31); Albumin Level 3.9 g/dL (3.5-5.0); Alkaline Phosphatase 80 U/L (39-117); Anion Gap 10 (12-20); Aspartate Amino Transferase 32 U/L (5-31); Bilirubin Total 0.5 mg/dL (0.0-1.0); Blood Urea Nitrogen 27 mg/dL (9-16); Calcium 9.4 mg/dL (8.4-10.2); Carbon Dioxide 28 mmol/L (22-29); Chloride 107 mmol/L (96-108); Cholesterol 116 mg/dL (<200); Estimated Glomerular Filt Rate 54; Glucose Fasting 94 mg/dL (60-99); HDL Cholesterol 43 mg/dL (>40); LDL Cholesterol Calculated 58 mg/dL (<100); Sodium 141 mmol/L (135-145); Total Protein 7.2 g/dL (6.5-8.0); Triglycerides 77 mg/dL (<150)
[2024-09-18 12:23] LABS: Folate 9.1 ng/mL (> or = 4.0); Vitamin B12 335 pg/mL (200-900)
[2024-09-18 12:28] LABS: TSH reflex Free T4 < 0.01 uIU/mL (0.32-4.0)
[2024-09-18 13:04] LABS: Free T4 (Free Thyroxine) 1.52 ng/dL (0.71-1.85)
== END 2024-09-18 08:54 | disposition home or self-care (01) ==
LOC: HO.WFDLDS 08:53
PROVIDERS: Visit Provider Internal Medicine
DX: E53.8 Deficiency of other specified B group vitamins (principal); D64.9 Anemia, unspecified; E03.9 Hypothyroidism, unspecified; I10 Essential (primary) hypertension
CPT/HCPCS: 36415; 80053; 80061; 82607; 82746; 84439; 84443; 85025

== ENCOUNTER 2024-09-19 09:39 | Outpatient (AMB) | payer MEDICARE, SELFPAY ==
[2024-09-19 09:49] VITALS: BP 118/60; PULSE 83; TEMP 37.2; O2SAT 98; BMI 19.3
--- NOTE | 2024-09-19 09:49 | A.OFFVIS_ITS ---
Intake Vital Signs 09/19/24 09:49 Height 5 ft 1 in Weight 102 lb BMI 19.3 BP 118/60 Blood Pressure Location Lt brachial Position Sitting Pulse 83 Pulse Source Pulse Oximeter Temp 99.0 F Temp Source Oral Pulse Oximetry (%) 98 Oxygen Delivery Method Room Air Intake Visit Reasons: JAMI g 2311 Intake Note: Pt is here today for AWV. Allergies Penicillins Allergy (Verified 09/19/24 09:50) Unknown Medication List - Last Reconciled 09/19/24 by Argelia Hutchins MD amlodipine 10 mg PO .QHS aspirin 81 mg PO .q AM atorvastatin 20 mg PO BEDTIME levothyroxine 50 mcg PO DAILY lisinopril 40 mg PO DAILY HPI SWV g 1377 HPI Details Initiated the conversation about Advanced Directives. Advanced Directives help? patients prepare for current and future decisions about their medical treatment? and place of care. Discussed with patient that it is a process where a patients? current condition and prognosis are reviewed, their wishes for information? regarding their illness are elicited, and likely medical dilemmas are presented? and options discussed. The form can be amended as needed, reviewed yearly and? make changes as needed IPPE/AWV ? year old presents? for her ? Annual? Wellness Visit, initial visit.? Medical / Social History Reviewed? Past Medical History ?Yes? . ? [place]? of Care / Care Team list updated ?Yes . ? Surgical/Hospitalization? History ?Yes . ? Current Medications? (including OTC and supplements) ?Yes . ? Family History ?Yes? . ? Tobacco? Control form ?Yes . ? AUDIT-C (Alcohol use) form? ?Yes . ? Illicit drug use in Social? History ?Yes . ? Current diagnosis of? depression? ?No ? Appropriate PHQ2/PHQ9? completed ?Yes . ? Data entered by ?Medical? [employer] and reviewed by provider ? Fall Risk ? Fall? History? Have you had any falls with? injury in the past year? ?No . ? Have you had two or more? falls in the past year? ?No . ? Fall Risk Assessment: ?No? falls in the past year . ? HRA filled out by? the patient, reviewed by Provider and scanned. ? IPPE/AWV ? Balance? Romberg? ?Yes . ? Tandem? walk ?Yes . ? Walk and? Turn ?Yes . ? Rise from? sit to stand ?Yes . ?Vision? Corrective? lens ?Yes ? Vision? screen ? Up-to-date, has an appointment [] for vision? screening and glaucoma screening ?Hearing? Whisper? test ?pass .? Initiated the conversation about Advanced Directives. Advanced Directives help? patients prepare for current and future decisions about their medical treatment? and place of care. Discussed with patient that it is a process where a patients? current condition and prognosis are reviewed, their wishes for information? regarding their illness are elicited, and likely medical dilemmas are presented? and options discussed. The form can be amended as needed, reviewed yearly and? make changes as needed Written? Plan?Completed. See Patient? Documents. [facility], [facility] Medical History Colon cancer Surgical History Hx of appendectomy History of colon resection Hx of tonsillectomy Family History Father Brain tumor Mother Colon cancer Sister Lung cancer Social History Household Members Other:: lives alone, 6 daughters, Housing: House Patient Tobacco Use Status: Never used Tobacco e-Cigarette/Vaping Use: Never Used service: No Current occupational status: retired Cognitive needs: No Hearing needs: No Vision needs: Yes Questionnaire Medicare Wellness Checkup What is your age?: 81 or older What gender do you identify with?: female During the past 4 weeks, how much have you been bothered by emotional problems such as feeling anxious, depressed, irritable, sad or downhearted, and blue?: not at all During the past 4 weeks, has your physical & emotional health limited your social activities with family, friends, neighbors, or groups?: not at all During the past 4 weeks, how much bodily pain have you generally had?: no pain During the past 4 weeks, was someone available to help you if you needed & wanted help?: yes, as much as I wanted During the past 4 weeks, what was the hardest physical activity you could do for at least 2 minutes?: light Can you get to places out of walking distance without help? (For eg., can you travel alone on buses, taxis or drive your car?): No Can you go shopping for groceries or clothes without someone's help?: No Can you prepare your own meals?: No Can you do your housework without help?: Yes Because of any health problems, do you need the help of another person with your personal care needs such as eating, bathing, dressing or getting around the house?: No Can you handle your own money without help?: No During the past 4 weeks, how would you rate your health in general?: very good During the past 4 weeks how have things been going for you?: very well; could hardly better Are you having difficulties driving your car?: not applicable, I don't use a car Do you always fasten your seat belt when you are in a car?: yes, usually During past 4 weeks, have you been bothered by the following: never: Falling or dizzy when standing up, Sexual problems?, Trouble eating well?, Teeth or denture problems? and Problems using the telephone? and seldom: Tiredness or fatigue? Have you fallen 2 or more times in the past year?: No Are you afraid of falling?: No Are you a smoker?: no During the past 4 weeks, how many drinks of wine, beer, or other alcoholic beverages did you have?: no alcohol at all Do you exercise for about 20 minutes 3 or more times a week?: no, I usually do not exercise this much Have you been given information to help with the following?: no: Hazards in your house that might hurt you? and no: Keeping track of your medications? How often do you have trouble taking medicines the way you have been told to take them?: I always take medicine as prescribed How confident are you that you can control & manage most of your health problems?: somewhat confident What is your race?: White Mini Mental State Exam (MMSE) Orientation What is the (year) (season) (date) (day) (month)?: year, season, date, day and month Where are we (state) (county) (town or city) (hospital) (floor)?: state, county, town or city, hospital/clinic and floor Registration Name of 3 unrelated objects clearly and slowly, then ask patient to repeat all 3 of them. (1st repeat determines score. Make sure they can repeat all three): object 1, object 2 and object 3 Attention & Calculation (CHOOSE ONE) Spell WORLD backwards (DLROW): 5 letters Recall Ask patient to repeat the 3 items from question #3.: object 1, object 2 and object 3 Language Show patient a wristwatch & ask what it is. Repeat for pencil.: watch and pencil Ask the patient to repeat the phrase 'No ifs, ands, or buts' after you.: correct Ask the patient to 'take a piece of paper with their right hand' 'fold paper in half' 'place paper on floor': take paper in right hand, fold paper in half and place paper on floor Print the sentence 'CLOSE YOUR EYES' on a piece. If patient actually closes eyes then score.: followed written direction Give patient a blank piece of paper & ask to write a sentence. Score if it contains a noun & verb.: sentence contains subject and verb Score Score: 29 PHQ-9 Over the last 2 weeks, how often have you been bothered by any of the following problems? 1. Little interest or pleasure in doing things: not at all 2. Feeling down, depressed, or hopeless: not at all 3. Trouble falling or staying asleep, or sleeping too much: several days 4. Feeling tired or having little energy: not at all 5. Poor appetite or overeating: not at all 6. Feeling bad about yourself - or that you are a failure or have let yourself or your family down: not at all 7. Trouble concentrating on things, such as reading the newspaper or watching television: not at all 8. Moving or speaking so slowly that other people could have noticed. Or the opposite - being so fidgety or restless that you have been moving around a lot more than usual: not at all 9. Thoughts that you would be better off or of hurting yourself in some way: not at all Total score: 1 Depression Screening Interpretation: Negative Depression Screening Done: Yes 60291 - PHQ-9 Billing: Yes Source: Developed by Drs. Trent Coulter, Keisha Woodson, Blaine Jurado and colleagues, with an educational miah from [employer]. Review of Systems Const All systems reviewed & are unremarkable except as noted in HPI and below Eyes Reports no additional complaints ENT Reports no additional complaints Card Reports no additional complaints Resp Reports no additional complaints GI Reports no additional complaints Reports no additional complaints Physical Exam Vital Signs: Last Vital Signs Temp 99.0 F 09/19/24 09:49 Pulse 83 09/19/24 09:49 BP 118/60 09/19/24 09:49 Pulse Ox 98 09/19/24 09:49 Oxygen Delivery Method Room Air 09/19/24 09:49 BMI result Body Mass Index 19.3 Const General: no acute distress HEENT Head: Yes normal to inspection Eyes General: appearance normal, both eyes and all related structures Neck Neck: Yes supple Resp Effort & Inspection: normal respiratory effort Auscultation: clear to auscultation bilaterally Cardio Rhythm: regular rhythm Heart sounds: S1 normal heart sound present and S2 normal heart sound present GI Inspection: Yes normal to inspection Palpation (GI): Soft to palpation Percussion: Yes normal to percussion Auscultation: normal bowel sounds Extrem General: Yes no clubbing, cyanosis or edema Immunizations pneumoc 20-salvador conj-dip cr(PF) 0.5 mL IM syringe Performing Provider: Argelia Hutchins MD Performing Location: [facility] Administered by: DEDE Jon on 09/19/24 10:38 Dose Route Admin Location Dispensed Lot Number Expiration Date [facility] Lot Attendant 0.5 mL IM Left Deltoid 0.5 mL [id number] 07/18/25 2985-7523-35 [employer] VIS Given Date VIS Provided VIS Publication Date 09/19/24 Single Vaccine 21 Eligibility Eligibility Date Funding Source Not [facility] Eligible 09/19/24 Private Assessment & Plan Assessment & Plan (1) Hypothyroidism: Code(s): E03.9 - Hypothyroidism, unspecified Plan: Change levothyroxine from 75 to 50 mcg and check TSH in 2 months (2) HTN (hypertension): Code(s): I10 - Essential (primary) hypertension Plan: Continue amlodipine and Lisinopril (3) Anemia: Comment: Multifactorial normal iron and B12 level 07/13 Code(s): D64.9 - Anemia, unspecified Plan: Monitor CBC (4) Vitamin D deficiency: Code(s): E55.9 - Vitamin D deficiency, unspecified Plan: Continue vitamin-D supplement (5) Annual physical exam: Code(s): Z00.00 - Encounter for general adult medical examination without abnormal findings Plan: Well-balanced diet regular physical activity discussed with the patient return in 6 months with a fasting labs before Orders: Orders Pneumococcal 20 Immunization Today Z23 - Encounter for immunization TSH reflex Free T4 6 Months E03.9 - Hypothyroidism, unspecified, E53.8 - Deficiency of other specified B group vitamins, E55.9 - Vitamin D deficiency, unspecified, E78.5 - Hyperlipidemia, unspecified, I10 - Essential (primary) hypertension Vitamin D 25-OH Total 6 Months E03.9 - Hypothyroidism, unspecified, E53.8 - Deficiency of other specified B group vitamins, E55.9 - Vitamin D deficiency, unspecified, E78.5 - Hyperlipidemia, unspecified, I10 - Essential (primary) hypertension Vitamin B12 and Folate 6 Months E03.9 - Hypothyroidism, unspecified, E53.8 - Deficiency of other specified B group vitamins, E55.9 - Vitamin D deficiency, unspecified, E78.5 - Hyperlipidemia, unspecified, I10 - Essential (primary) hypertension Lipid Panel 6 Months E03.9 - Hypothyroidism, unspecified, E53.8 - Deficiency of other specified B group vitamins, E55.9 - Vitamin D deficiency, unspecified, E78.5 - Hyperlipidemia, unspecified, I10 - Essential (primary) hypertension TSH reflex Free T4 2 Months E03.9 - Hypothyroidism, unspecified Comprehensive [place]. Panel Fast 6 Months E03.9 - Hypothyroidism, unspecified, E53.8 - Deficiency of other specified B group vitamins, E55.9 - Vitamin D deficiency, unspecified, E78.5 - Hyperlipidemia, unspecified, I10 - Essential (primary) hypertension Complete Blood Count Auto Diff 6 Months E03.9 - Hypothyroidism, unspecified, E53.8 - Deficiency of other specified B group vitamins, E55.9 - Vitamin D deficiency, unspecified, E78.5 - Hyperlipidemia, unspecified, I10 - Essential (primary) hypertension Medications: New levothyroxine 50 mcg PO DAILY 90 tabs 0RF Discontinued levothyroxine 1 tabl qd for 6 days, 1/2 tabl for 1 days Discontinued Reason: Doctor's Order 75 mcg PO DAILY 90 tabs 3RF aspirin Discontinued Reason: Doctor's Order 81 mg PO .q AM 90 tabs 3RF Quality Reporting (2019) Depression/Bipolar (159/160/161/177) PHQ-9: Total score: 1 Coding Level of Care Code Medicare Subsequent (G0439) Diagnoses Hypothyroidism E03.9 HTN (hypertension) I10 Anemia D64.9 Vitamin D deficiency E55.9 Annual physical exam Z00.00 CPT Codes Advance Care Planning - Advance Care Planning discussion: On file, no changes ([id number]) Advance Care Planning - Time spent: 1-15 minutes, on File ([id number]) Additional Codes PHQ-9 - 15763 - PHQ-9 Billing: Yes ([id number]) Advance Care Planning Advance Care Planning discussion: On file, no changes Forms completed: Health Care Proxy Time spent: 1-15 minutes, on File Did not discuss due to Cultural/Spiritual beliefs: No
--- OUTSIDE RECORDS SUMMARY | 2024-09-19 10:27 | XMS_ITS | Clinical Summary ---
Author Organization [facility] Address [address] [place] [address] Phone Care Team Providers Care Lard Tub Washer Name Role Phone Letty Rossi UTILITY WORKER FORGE Primary Care Provider Allergies Active Allergy Reactions [...] - 08/26/2024 11:59 PM EDT Hospital Encounter [facility] Ultrasound [address] [place] [address] Stenosis of artery ([facility] V24) Discharge Disposition: Home or Self Care from Last 3 Months Surgical History Surgery Date Site/Laterality Comments OTHER SURGICAL HISTORY 04/25/2023 Left PROCEDURE: NC TEAEC W/PATCH GRF CAROTID VERTB SUBCLAV NECK [...] PM EDT Office Visit Vascular Surgery - [place] [address] [place] [address] Eh Brower MD [address] [place] [address] Health Maintenance Due Date Last Done Comments [...] 08/26/2024 2:12 PM EDT Stenosis of artery ([facility] V24) from Last 3 Months Results * [...] Signed Date: 08/26/2024 15:20 ET Workstation ID: [id number] Transcribed By: Self Edit Transcribed Date: 08/26/2024 [...] in the proximal right internal carotid artery [id number] cm/s. The left bulb and bifurcation are [...] Signed Date: 08/26/2024 15:20 ET Workstation ID: [id number] Transcribed By: Self Edit Transcribed Date: 08/26/2024 15:16 ET us Phylicia Garcia MD CV VASCULAR PROCEDURES Fi nal Result from Last 3 [place] [address] MEDICARE Advance Directives Documents on File Type Date Recorded Patient Line Puller Expl anation Health Care Decision (hx) 02/06/2024 [...] (hx) 04/30/2023 AD HILL DIRECTIVE Care Teams Lard Tub Washer Relationship Specialty Start Date End Date Letty Rossi NP [address] [address] PCP - General Nurse Practitioner 08/22/24
== END 2024-09-19 10:55 | disposition home or self-care (01) ==
LOC: HO.HMCC 09:39
PROVIDERS: PCP Internal Medicine; Visit Provider Internal Medicine
DX: Z00.00 Encounter for general adult medical examination without abnormal findings (principal); E03.9 Hypothyroidism, unspecified; I10 Essential (primary) hypertension; D64.9 Anemia, unspecified; E55.9 Vitamin D deficiency, unspecified; Z23 Encounter for immunization

== ENCOUNTER → 2024-09-19 09:39 | Outpatient (BNVA) | payer MEDICARE, SELFPAY | PROVIDERS: PCP Internal Medicine; Visit Provider Internal Medicine | DX: Z00.00 Encounter for general adult medical examination without abnormal findings (principal); Z23 Encounter for immunization; E03.9 Hypothyroidism, unspecified; I10 Essential (primary) hypertension; E55.9 Vitamin D deficiency, unspecified; D64.9 Anemia, unspecified | CPT/HCPCS: 90471; 90677; 96127 ==

== ENCOUNTER 2024-11-14 12:33 | Outpatient (AMB) | payer MEDICARE, SELFPAY ==
[2024-11-14 13:04] VITALS: BP 130/62; PULSE 66; RESP 16; TEMP 36.8; O2SAT 98; BMI 19.6
--- NOTE | 2024-11-14 13:04 | A.OFFPC_ITS ---
Vital Signs 11/14/24 13:04 Height 5 ft 1 in Weight 104 lb BMI 19.6 BP 130/62 Blood Pressure Location Lt brachial Position Sitting Respiration 16 Pulse 66 Pulse Source Pulse Oximeter Temp 98.3 F Temp Source Oral Pulse Oximetry (%) 98 Oxygen Delivery Method Room Air Intake Visit Reasons: Hospital follow up Intake Note: Pt is here today for Hospital follow up visit. Allergies Penicillins Allergy (Verified 11/14/24 13:08) Unknown Tobacco use date assessed: 11/14/24 Fall risk assessment: 2 + Falls in past year Last assessed Fall Risk: 11/14/24 Dental Screening Dental Screen Date: 11/14/24 Did you have a dental visit in the last 12 months?: Yes Did you have a dental problem in the last 6 months where you did not have access to dental care?: No Was dental information given to patient?: Patient has dentist HPI Hospital follow up HPI Details Pt presents for f/u ER visit at [facility] after a mechanical fall. Patient denies any head injury. Cardiac and neuro workup were negative. patient lives alone and reports occasionally tripping at home but is not interested in home health aide or assisted living facility. She denies syncope dizziness chest pain shortness or breath or palpitations. Patient has been compliant with her medications. [facility] Medical History (Updated 11/14/24 @ 15:14 by Argelia Hutchins MD) Colon cancer Surgical History Hx of appendectomy History of colon resection Hx of tonsillectomy Family History Father Brain tumor Mother Colon cancer Sister Lung cancer Social History Household Members Other:: lives alone, 6 daughters, Housing: House Patient Tobacco Use Status: Never used Tobacco e-Cigarette/Vaping Use: Never Used service: No Current occupational status: retired Cognitive needs: No Hearing needs: No Vision needs: Yes Questionnaire Thrive Questionnaire Date Thrive assessed: 09/19/24 AUDIT C Alcohol Use Questionnaire (AUDIT-C) 1. How often do you have a drink containing alcohol?: Never 3. How often do you have six or more drinks on one occasion?: Never Total Score: 0 ESTHER-7 AMB Questionnaire ESTHER-7 Date ESTHER - 7 assessed: 04/25/24 Source: Developed by DrsPeggy Coulter, Keisha Woodson, Blaine Jurado and colleagues, with an educational miah from [employer]. Review of Systems Const All systems reviewed & are unremarkable except as noted in HPI and below Eyes Reports no additional complaints ENT Reports no additional complaints Card Reports no additional complaints Resp Reports no additional complaints GI Reports no additional complaints Reports no additional complaints Physical exam (Primary Care) Vital Signs: Last Vital Signs Temp 98.3 F 11/14/24 13:04 Pulse 66 11/14/24 13:04 Resp 16 11/14/24 13:04 BP 130/62 11/14/24 13:04 Pulse Ox 98 11/14/24 13:04 Oxygen Delivery Method Room Air 11/14/24 13:04 BMI result Body Mass Index 19.6 Tobacco/Smoking Status: Tobacco use Status Tobacco use date assessed 11/14/24 11/14/24 13:09 Patient Tobacco Use Status Never used Tobacco 11/14/24 13:09 e-Cigarette/Vaping Use Never Used 11/14/24 13:09 Thrive Assessment: Date of Thrive Assessment Date Thrive assessed 09/19/24 11/14/24 13:09 Const General: no acute distress HENMT Head: Yes normal to inspection Face and sinus: Yes normal facial exam Eyes General: appearance normal, both eyes and all related structures Neck Neck: Yes supple Resp Effort & Inspection: normal respiratory effort Auscultation: clear to auscultation bilaterally Cardio Rhythm: regular rhythm Heart sounds: S1 normal heart sound present and S2 normal heart sound present GI Inspection: Yes normal to inspection Palpation (GI): Soft to palpation Percussion: Yes normal to percussion Auscultation: normal bowel sounds Coding Level of Care Code Est Pt Level 4 (59733) Complex EM visit Add On G2211 Diagnoses HTN (hypertension) I10 Hypothyroidism E03.9 Vitamin B 12 deficiency E53.8 Vitamin D deficiency E55.9 Fall W19.XXXA Assessment & Plan Assessment & Plan (1) HTN (hypertension): Code(s): I10 - Essential (primary) hypertension Category: Medical Plan: Continue current medications (2) Hypothyroidism: Code(s): E03.9 - Hypothyroidism, unspecified Category: Medical Plan: Continue levothyroxine (3) Vitamin B 12 deficiency: Code(s): E53.8 - Deficiency of other specified B group vitamins Category: Medical Plan: Continue vitamin B12 (4) Vitamin D deficiency: Code(s): E55.9 - Vitamin D deficiency, unspecified Category: Medical Plan: Continue vitamin-D (5) Fall: Code(s): W19.XXXA - Unspecified fall, initial encounter Category: Medical Plan: Fall prevention discussed with the patient.
--- OUTSIDE RECORDS SUMMARY | 2024-11-14 13:14 | XMS_ITS | Clinical Summary ---
Author Organization [facility] Address [address] [place] [address] Phone Care Team Providers Care Rn First Assist Name Role Phone Flo Letty MORTGAGE SPECIALIST Primary Care Provider Allergies Active Allergy Reactions Criticality Noted Date Comments Penicillins 05/11/2023 Medications levothyroxine (SYNTHROID, LEVOTHROID) 50 mcg tablet Take 1 tablet (50 mcg total) by mouth 1 (one) time each day before breakfast. Active lisinopril (PRINIVIL,ZES TRIL) 40 mg tablet Take 1 tablet (40 mg total) by mouth 1 (one) time each day. Active amLODIPine (NORVASC) 10 mg tablet Take 1 tablet (10 mg total) by mouth. at bedtime 06/27/19 25 Active atorvastatin (LIPITOR) 20 mg tablet Take 1 tablet (20 mg total) by mouth at bedtime. Active fluocinolone (SYNALAR) 0.025 % cream Apply thin layer to left lower extremities two times a day. 60 g 1 09/20/19 25 Active aspirin 81 mg chewable tablet Chew 1 tablet (81 mg total) 1 (one) time each day. 025 Discontinued atorvastatin (LIPITOR) 10 mg tablet Take 8 mg by mouth daily. 025 Discontinued(En tered in Error) clopidogreL (PLAVIX) 75 mg tablet Take 1 tablet (75 mg total) by mouth 1 (one) time each day. 025 Discontinued CYANOCOBALAMI N, VITAMIN B-12, ORAL Take 1 Tablet by mouth daily. 025 Discontinued levothyroxine (SYNTHROID, LEVOTHROID) 75 mcg tablet Take 1 tablet (75 mcg total) by mouth 1 (one) time each day. 025 Discontinued(En tered in Error) lisinopriL (PRINIVIL,ZES TRIL) 30 mg tablet Take 1 tablet (30 mg total) by mouth 1 (one) time each day. 025 Discontinued(En tered in Error) melatonin 5 mg tablet Take 1 Tablet by mouth as needed. 025 Discontinued Active Problems Problem Noted Date Diagnosed Date Syncope and collapse 10/24/2024 Carotid stenosis, symptomatic w/o infarct 2024 Hyperlipidemia 10/23/2024 Hypertension 10/23/2024 Hypothyroidism 10/23/2024 Encounters Date Type Department Care Team Description 10/23/2024 2:05 PM EDT - 10/24/2024 4:28 PM EDT Hospital Encounter [facility]mediate Care Unit [address] [place] [address] Wm Stevenson DO Seralathan, Manikandan, MD Bell, Alistair A, MD Syncope and collapse (Primary Dx) Discharge Disposition: Home or Self Care 09/19/2024 2:00 PM EDT Office Visit [facility] - [place] [address] [place] [phone] Eh Brower MD Carotid stenosis, asymptomatic, bilateral (Primary Dx); 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 08/26/2024 1:14 PM EDT - 08/26/2024 11:59 PM EDT Hospital Encounter [facility] Ultrasound [address] [place] [address] Stenosis of artery ([facility] V24) Discharge Disposition: Home or Self Care from Last 3 Months Surgical History Surgery Date Site/Laterality Comments OTHER SURGICAL HISTORY 04/25/2023 Left PROCEDURE: NH TEAEC W/PATCH GRF CAROTID VERTB SUBCLAV NECK INC COLECTOMY PARTIAL / TOTAL colon cancer (family reports in remission) APPENDECTOMY TONSILLECTOMY ADENOIDECTOMY Medical History Medical History Date Comments Stroke ([facility] V24, [facility] V28) Hypertension Hypothyroidism Carotid artery stenosis Social History Tobacco Use Types Packs/Day Years Used Date Smoking Tobacco: Never Tobacco Cessation:Counseling Given: Not Answered Alcohol Use Standard Drinks/Week Comments Not Currently 0 (1 standard drink = 0.6 oz pur e alcohol) Food Risk Answer Date Recorded Within the past 12 months we worried whether our food would run out before we got money to buy more. Never true 10/24/2024 Within the past 12 months th e food we bought just didn't last and we didn't have money to get more. Never true 10/24/2024 Interpersonal Safety Answer Date Record ed Physical Abuse 10/24/2024 Verbal Abuse 10/24/2024 Comments Unknown Sex and Gender Information Value Date Recorded Sex Assigned at Female 08/22/2024 11:59 AM EDT Legal Sex Female 9:04 AM EST Gender Identity Female 08/22/2024 11:59 AM EDT Sexual Orientation Straight 08/22/2024 12 :02 PM EDT Obstetrics History Last Filed Vital Signs Vital Sign Reading Time Taken Comments Blood Pressure 125/66 10/24/2024 11:36 AM EDT Pulse 93 10/24/2024 1:00 PM EDT Temperature 36.7 C (98 F) 10/24/2024 11:33 AM EDT Respiratory Rate 16 10/24/2024 11:33 AM EDT Oxygen Saturation 100% 10/24/2024 11:36 AM EDT Inhaled Oxygen Concentration - - Weight 46.4 kg (102 lb 6.4 oz) 10/24/2024 3:00 A M EDT Height 154.9 cm (5' 1 ) 10/23/2024 2:22 PM EDT Body Mass Index 19.35 10/23/2024 2:22 PM EDT Plan of Treatment Upcoming Encounters Date Type Department Care Team (Late st Contact Info) Description 03/16/2025 12:00 PM EDT Ancillary Procedure [facility] [address] [facility] [address] [place] [address] 03/27/2025 11:30 AM EST Office Visit [facility] Surgery - [place] [address] [facility] [address] [place] [phone] Eh Brower MD [address] [facility] [address] [place] [address] Health Maintenance Due Date Last Done Comments DTaP,Tdap,and Td Vaccines (1 - Tdap) 02/16/1954 Zoster Vaccines (1 of 2) 02/16/1986 RSV Immunization Adult Patients (1 - 1-dose 75+ series) 02/16/2011 Depression Screening 06/19/2023 Medicare Annual Wellness Visit 06/19/2023 Osteoporosis Screening (Bone Density Screening) 06/19/2023 COVID-19 Vaccine (3 - 2023-2 5 season) 2024 05/09/2021, 09/24/2020 Influenza Vaccine (Season Ended) 2025 Falls Risk Assessment 10/24/2025 10/24/2024 Hypertension/CHF/CAD Annual BMP Blood Test 10/24/2025 10/24/2024, 10/23/2024 Social Influencers of Health Screening 10/24/2025 10/24/2024 Cholesterol Screening (Lipid Panel) 10/24/2029 10/24/2024 Pneumococcal Vaccine: 50+ Years Completed 09/19/2024 HIB Vaccines Aged Out No longer eligi [...] Procedure Name Priority Date/Time Associated Diagnosis Comments ECG ANNOTATED 10/28/2024 ECG OUTSIDE 10/27/2024 CT ANGIO HEAD/NECK WO AND/OR W CONTRAST STAT 10/24/2024 10:30 AM EDT CBC WITH AUTO DIFFERENTIAL Routine 10/24/2024 5:38 AM EDT LIPID PANEL WITH REFLEX TO DIRECT LDL Routine 10/24/2024 5:38 AM EDT BASIC METABOLIC PANEL Routine 10/24/2024 5:38 AM EDT CBC AND DIFFERENTIAL Routine 10/24/2024 5:38 AM EDT MR BRAIN WO CONTRAST Routine 10/23/2024 8:29 PM EDT ED LACERATION REPAIR Routine 10/23/2024 7:14 PM EDT NH REPAIR SPRFCL WOUNDS SIMPLE SCALP/NECK/AXILLAE/G ENT/TRUNK/EXT <= 2.5 CM Routine 10/23/2024 7:14 PM EDT TROPONIN I HIGH SENSITIVITY STAT 10/23/2024 4:28 PM EDT XR CHEST 2 VIEWS STAT 10/23/2024 3:[address] CERVICAL SPINE WO CONTRAST STAT 10/23/2024 2:[address] HEAD WO CONTRAST STAT 10/23/2024 2 :35 PM EDT PROLACTIN STAT Add-on 10/23/2024 2:15 PM EDT CREATINE KINASE AND CKMB Add-On 10/23/2024 2:15 PM EDT HEMOGLOBIN A1C Add-On 10/23/2024 2:15 PM EDT CBC WITH AUTO DIFFERENTIAL STAT 10/23/2024 2:15 PM EDT TROPONIN I HIGH SENSITIVITY STAT 10/23/2024 2:15 PM EDT MAGNESIUM STAT 10/23/2024 2:15 PM EDT BASIC METABOLIC PANEL STAT 10/23/2024 2:15 PM EDT CBC AND DIFFERENTIAL STAT 10/23/2024 2:15 PM EDT ECG 12-LEAD STAT 10/23/2024 2:08 PM EDT VAS US DUPLEX CAROTID BILATERAL Routine 08/26/2024 2:12 PM EDT Stenosis of artery ([facility] V24) from Last 3 Months Results * ECG-Annotated (10/28/2024) us Provider Onbase MD ECG ORDERABLES Final Result * ECG-Outside (10/27/2024) us Provider Onbase MD ECG ORDERABLES Final Result * CT Angio Head/Neck wo and/or w Contrast (10/24/2024 10:30 AM EDT) Anatomical Region Laterality Modality Head and Neck Computed Tomogra phy 10/24/2024 10:3 8 AM EDT Impressions 10/24/2024 10:47 AM EDT No acute intracranial abnormality. Stable CTA compared to 01/24/2024. No significant stenosis or occlusion in the cervical and intracranial arterial vasculature -------- FINAL REPORT -------- Dictated By: ALEX HAAS Dictated Date: 10/24/2024 10:38 ET Assigned Physician: ALEX HAAS Reviewed and Electronically Signed By: ALEX HAAS Signed Date: 10/24/2024 10:47 ET Workstation ID: [id number] Transcribed By: Self Edit Transcribed Date: 10/24/2024 10:38 ET Narrative 10/24/2024 10:47 AM EDT PROCEDURE: Head CT and head/neck CTA INDICATION: Stroke, pain TECHNIQUE: Head CT without contrast. CTA of the head and neck with intravenous contrast. Multiplanar reformats. The examination was performed utilizing dose reduction techniques.3-D or MIP images were produced with postprocessing on an independent computer workstation. 85 cc [id number] injected intravenously without complication. Total DLP 3349. COMPARISON: MRI 10/23/2024, CTA 01/24/2024 FINDINGS: CT head: No acute intracranial hemorrhage, territorial infarction, or mass effect. Moderate chronic small vessel ischemic changes seen throughout the supratentorial white matter. Diffuse cerebral volume loss with prominence of ventricles and sulci. No hydrocephalus. Sinuses and mastoid air cells are clear. No scalp hematoma or skull fracture. CTA Neck: There is a left-sided aortic arch. Major branch arteries arising from the aortic arch are patent. Common carotid and internal carotid arteries are patent in the neck. Left carotid endarterectomy changes without recurrent stenosis of the proximal left cervical internal carotid artery. Calcified plaque at the proximal right cervical internal carotid artery with approximately 50% stenosis. Cervical vertebral arteries are patent. No pneumothorax at the lung apices. Multinodular goiter. Paraspinal muscles are within normal limits.. Degenerative changes seen throughout the cervical spine.. CTA Head: Intracranial portions of the internal carotid arteries are patent. M1 and A1 segments are patent. Distal middle cerebral and anterior cerebral arteries are patent. Vertebrobasilar system is patent. Superior cerebellar and posterior cerebral arteries are patent. type origin of the right posterior cerebral artery, a normal variant. Approximately 50% stenosis at the right posterior communicating artery and right proximal P2 segment with preserved contrast opacification distally Major dural venous sinuses opacify normally with contrast. No intracranial aneurysm or vascular malformation.. Procedure Note Alex Haas MD - 10/24/2024 PROCEDURE: Head CT and head/neck CTA INDICATION: Stroke, pain TECHNIQUE: Head CT without contrast. CTA of the head and neck withintravenous contrast. Multiplanar reformats. The examination was performedutilizing dose reduction techniques.3-D or MIP images were produced withpostprocessing on an independent computer workstation. 85 cc [id number] intravenously without complication. Total DLP 3349. COMPARISON: MRI 10/23/2024, CTA 01/24/2024 FINDINGS: CT head: No acute intracranial hemorrhage, territorial infarction, or masseffect. Moderate chronic small vessel ischemic changes seen throughout thesupratentorial white matter. Diffuse cerebral volume loss with prominence of ventricles and sulci. Nohydrocephalus. Sinuses and mastoid air cells are clear. No scalp hematoma or skull fracture. CTA Neck: There is a left-sided aortic arch. Major branch arteries arising from theaortic arch are patent. Common carotid and internal carotid arteries are patent in the neck. Leftcarotid endarterectomy changes without recurrent stenosis of the proximalleft cervical internal carotid artery. Calcified plaque at the proximalright cervical internal carotid artery with approximately 50% stenosis. Cervical vertebral arteries are patent. No pneumothorax at the lung apices. Multinodular goiter. Paraspinalmuscles are within normal limits.. Degenerative changes seen throughoutthe cervical spine.. CTA Head: Intracranial portions of the internal carotid arteries are patent. M1 andA1 segments are patent. Distal middle cerebral and anterior cerebralarteries are patent. Vertebrobasilar system is patent. Superior cerebellar and posteriorcerebral arteries are patent. type origin of the right posteriorcerebral artery, a normal variant. Approximately 50% stenosis at theright posterior communicating artery and right proximal P2 segment withpreserved contrast opacification distally Major dural venous sinuses opacify normally with contrast. No intracranial aneurysm or vascular malformation.. IMPRESSION: No acute intracranial abnormality. Stable CTA compared to 01/24/2024. No significant stenosis or occlusionin the cervical and intracranial arterial vasculature -------- FINAL REPORT -------- Dictated By: ALEX HAAS Dictated Date: 10/24/2024 10:38 ET Assigned Physician: ALEX HAAS Reviewed and Electronically Signed By: ALEX HAAS Signed Date: 10/24/2024 10:47 ET Workstation ID: [id number] Transcribed By: Self Edit Transcribed Date: 10/24/2024 10:38 ET us Karolina WALKER IMG CT PROCEDURES Final Resul t * Lipid panel with reflex to direct LDL (10/24/2024 5:38 AM EDT) Cholesterol 103 0 - 200 mg/dL LAB CHEMISTRY METHOD 10/24/2024 8:[address] [facility] Triglycerides 92 0 - 150 mg/dL LAB CHEMISTRY METHOD 10/24/2024 8:[address] [facility] HDL 43 >=40 mg/dL LAB CHEMISTRY METHOD 10/24/2024 8:[address] [facility] LDL Calculated 42 0 - 100 mg/dL LAB CHEMISTRY METHOD 10/24/2024 8:[address] [facility] VLDL Cholesterol Ángel 18.4 mg/dL LAB CHEMISTRY METHOD 10/24/2024 8:[address] [facility] Non HDL Chol. (LDL+VLDL) 60 <145 mg/dL LAB CHEMISTRY METHOD 10/24/2024 8:[address] [facility] Chol/HDL Ratio 2.4 0.0 - 4.4 LAB CHEMISTRY METHOD 10/24/2024 8:23 AM [facility] Blood Venous blood specimen / Unknown Venipuncture / Unknown 10/24/2024 5:38 AM EDT 10/24/2024 6:15 AM EDT us Terrie WALKER LAB BLOOD ORDERABLES Final Re sult [facility] [address] [place] [address], [place] [phone] * (ABNORMAL) CBC auto differential (10/24/2024 5:38 AM EDT) Only the most recent of2 resultswithin the time period is included. WBC 7.4 4.8 - 10.8 K/mcL LAB HEMETOLOGY METHOD 10/24/2024 6:[address] [facility] RBC 3.30(L) 3.80 - 4.80 M/mcL LAB HEMETOLOGY METHOD 10/24/2024 6:36 AM [facility] Hemoglobin 10.4(L) 11.5 - 16.0 g/dL LAB HEMETOLOGY METHOD 10/24/2024 6:36 AM [facility] Hematocrit 31.1(L) 35.0 - 47.0 % LAB HEMETOLOGY METHOD 10/24/2024 6:36 AM [facility] MCV 95.4 79.0 - 98.0 FL LAB HEMETOLOGY METHOD 10/24/2024 6:36 AM [facility] MCH 31.9 27.0 - 32.0 pcg LAB HEMETOLOGY METHOD 10/24/2024 6:36 AM [facility] MCHC 33.4 32.0 - 37.0 g/dL LAB HEMETOLOGY METHOD 10/24/2024 6:36 AM [facility] RDW 12.2 11.0 - 15.0 % LAB HEMETOLOGY METHOD 10/24/2024 6:36 AM [facility] Platelets 123(L) 130 - 400 K/mcL LAB HEMETOLOGY METHOD 10/24/2024 6:36 AM [facility] MPV 12.4(H) 7.0 - 11.0 FL LAB HEMETOLOGY METHOD 10/24/2024 6:36 AM [facility] NRBC 0.0 <1.0 % LAB HEMETOLOGY METHOD 10/24/2024 6:36 AM [facility] NRBC Absolute 0.00 <0.10 K/mcL LAB HEMETOLOGY METHOD 10/24/2024 6:36 AM [facility] Neutrophils Relative 65.3 % LAB HEMETOLOGY METHOD 10/24/2024 6:36 AM [facility] Lymphocytes Relative 22.5 % LAB HEMETOLOGY METHOD 10/24/2024 6:[address] [facility] Monocytes Relative 8.3 % LAB HEMETOLOGY METHOD 10/24/2024 6:36 AM [facility] Eosinophils Relative 3.1 % LAB HEMETOLOGY METHOD 10/24/2024 6:[address] [facility] Basophils Relative 0.5 % LAB HEMETOLOGY METHOD 10/24/2024 6:36 AM [facility] Immature Granulocytes Relative 0.3 % LAB HEMETOLOGY METHOD 10/24/2024 6:36 AM [facility] Neutrophils Absolute 4.82 1.50 - 7.00 K/mcL LAB HEMETOLOGY METHOD 10/24/2024 6:36 AM [facility] Lymphocytes Absolute 1.66 1.00 - 5.00 K/mcL LAB HEMETOLOGY METHOD 10/24/2024 6:36 AM [facility] Monocytes Absolute 0.61 0.20 - 1.00 K/mcL LAB HEMETOLOGY METHOD 10/24/2024 6:36 AM [facility] Eosinophils Absolute 0.23 0.00 - 0.50 K/mcL LAB HEMETOLOGY METHOD 10/24/2024 6:36 AM [facility] Basophils Absolute 0.04 0.00 - 0.20 K/mcL LAB HEMETOLOGY METHOD 10/24/2024 6:36 AM [facility] Immature Granulocytes Absolute 0.02 0.00 - 0.03 K/mcL LAB HEMETOLOGY METHOD 10/24/2024 6:36 AM [facility] Blood Venous blood specimen / Unknown Venipuncture / Unknown 10/24/2024 5:38 AM EDT 10/24/2024 6:15 AM EDT Terrie WALKER LAB BLOOD ORDERABLES Final Re sult [facility] [address] [place] [address], * (ABNORMAL) Basic metabolic panel (10/24/2024 5:38 AM EDT) Only the most recent of2 resultswithin the time period is included. Sodium 142 133 - 145 mmol/L LAB CHEMISTRY METHOD 10/24/2024 8:23 AM [facility] Potassium 3.9 3.5 - 5.5 mmol/L LAB CHEMISTRY METHOD 10/24/2024 8:23 AM [facility] Chloride 111(H) 96 - 110 mmol/L LAB CHEMISTRY METHOD 10/24/2024 8:23 AM [facility] CO2 26 21 - 32 mmol/L LAB CHEMISTRY METHOD 10/24/2024 8:23 AM [facility] Anion Gap 5 3 - 11 LAB CHEMISTRY METHOD 10/24/2024 8:23 AM [facility] Glucose 89 70 - 100 mg/dL LAB CHEMISTRY METHOD 10/24/2024 8:23 AM [facility] BUN 18 5 - 25 mg/dL LAB CHEMISTRY METHOD 10/24/2024 8:23 AM [facility] Creatinine 0.98 0.50 - 1.10 mg/dL LAB CHEMISTRY METHOD 10/24/2024 8:23 AM [facility] eGFR 56(L) >=60 mL/min/1. 73m2 LAB CHEMISTRY METHOD 10/24/2024 8:23 AM [facility] Comment:Calculation based on the Chronic Kidney Disease Epidemiology Collaboration (CKD-EPI) equation refit without adjustment for race. BUN/Creatinine Ratio 18.4 LAB CHEMISTRY METHOD 10/24/2024 8:23 AM [facility] Calcium 8.5 8.5 - 10.5 mg/dL LAB CHEMISTRY METHOD 10/24/2024 8:[address] [facility] Blood Venous blood specimen / Unknown Venipuncture / Unknown 10/24/2024 5:38 AM EDT 10/24/2024 6:15 AM EDT us Terrie WALKER LAB BLOOD ORDERABLES Final Re sult [facility] [address] [place] [address], [place] [phone] * MR Brain wo Contrast (10/23/2024 8:29 PM EDT) Anatomical Region Laterality Modality Head and Neck Magnetic Resonan ce 10/23/2024 8:28 PM EDT Impressions 10/23/2024 8:30 PM EDT NO ACUTE INFARCT. 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 COMPARISON: No priors available. FINDINGS: There is no mass, hemorrhage or acute territorial infarct. Diffusion-weighted images are unremarkable with few foci of T2 shine through noted. There is significant periventricular confluent T2/FLAIR hyperintensity which is compatible with chronic microvascular ischemic changes. Chronic microvascular ischemic changes also noted within the paulino. There is no mass effect or midline shift. Diffuse parenchymal volume loss with commensurate enlargement of the ventricles and sulci. Unremarkable orbits, orbital soft tissues, mastoid air cells. No acute calvarial abnormality. Unremarkable paranasal sinuses. Midline structures including the midbrain, visualized cervical cord and spine, pharynx, tongue base, epiglottis unremarkable. Visualized airway clear. Procedure Note Donato Serrano MD - 10/23/2024 PROCEDURE: MR BRAIN WO CONTRAST INDICATION: syncope hx of cva with syncopal episode in january TECHNIQUE: Axial diffusion weighted, as well as T1 and T2-weightedmultiplanar imaging without intravenous contrast. COMPARISON: No priors available. FINDINGS: There is no mass, hemorrhage or acute territorial infarct.Diffusion-weighted images are unremarkable with few foci of T2 shinethrough noted. There is significant periventricular confluent T2/FLAIRhyperintensity which is compatible with chronic microvascular ischemicchanges. Chronic microvascular ischemic changes also noted within thepons. There is no mass effect or midline shift. Diffuse parenchymalvolume loss with commensurate enlargement of the ventricles and sulci. Unremarkable orbits, orbital soft tissues, mastoid air cells. No acutecalvarial abnormality. Unremarkable paranasal sinuses. Midline structuresincluding the midbrain, visualized cervical cord and spine, pharynx,tongue base, epiglottis unremarkable. Visualized airway clear. IMPRESSION: NO ACUTE INFARCT. -------- FINAL REPORT -------- Dictated By: Donato Serrano Dictated Date: 10/23/2024 20:28 ET Assigned Physician: Donato Serrano Reviewed and Electronically Signed By: Donato Serrano Signed Date: 10/23/2024 20:30 ET Workstation ID: [id number] Transcribed By: Self Edit Transcribed Date: 10/23/2024 20:28 ET Terrie WALKER IMG MRI PROCEDURES Final Resu lt * NH REPAIR SPRFCL WOUNDS SIMPLE SCALP/NECK/AXILLAE/GENT/TRUNK/EXT <= 2.5 CM, HC REPAIR WOUND LEVEL 1 (10/23/2024 7:14 PM EDT) Narrative Wm Stevenson DO - 10/23/2024 7:14 PM EDT DENISE Hilton 10/26/2024 10:14 AM Laceration Repair Date/Time: 10/23/2024 7:14 PM Performed by: DENISE Hilton Authorized by: Wm Stevenson DO Consent: Consent obtained: Verbal Consent given by: Patient Risks, benefits, and alternatives were discussed: yes Risks discussed: Infection, need for additional repair, poor cosmetic result and poor wound healing Alternatives discussed: No treatment, delayed treatment and observation Anesthesia: Anesthesia method: Topical application Topical anesthetic: LET Laceration details: Location: Scalp Scalp location: Occipital Length (cm): 2 Treatment: Amount of cleaning: Standard Irrigation solution: Sterile saline Skin repair: Repair method: [place]pine Number of zohaib: 4 Approximation: Approximation: Close Repair type: Repair type: Simple Post-procedure details: Dressing: Open (no dressing) Procedure completion: Tolerated well, no immediate complications us Wm Stevenson DO IN CLINIC/BEDSIDE ORDERABLE S Final Result * (ABNORMAL) Troponin I high sensitivity (10/23/2024 4:28 PM EDT) Only the most recent of2 resultswithin the time period is included. High Sensitivity Troponin I 99(H) <=54 ng/L LAB CHEMISTRY METHOD 10/23/2024 5:[address] [facility] Blood Venous blood specimen / Unknown Venipuncture / Unknown 10/23/2024 4:28 PM EDT 10/23/2024 4:[address] [facility] - 10/23/2024 5:29 PM EDT High levels of biotin in samples may falsely decrease hsTroponin values. Use caution when interpreting hsTroponin results in patients taking biotin who exhibit renal impairment (eGFR <60) or in patients taking more than 20 mg/day of biotin. us Wm Stevenson DO LAB BLOOD ORDERABLES Final Result [facility] [address] [place] [address], [place] [phone] * XR Chest 2 Views (10/23/2024 3:49 PM EDT) Anatomical Region Laterality Modality Body Radiographic Lindsey ging 10/23/2024 4:05 PM EDT Impressions 10/23/2024 4:06 PM EDT Impression: Stable radiographic appearance of the chest. No active pulmonary process identified. T[place] PA ([id number]) -------- FINAL REPORT -------- Dictated By: Marybel Small Dictated Date: 10/23/2024 16:05 ET Assigned Physician: Marybel Small Reviewed and Electronically Signed By: Marybel Small Signed Date: 10/23/2024 16:06 ET Workstation ID: [id number] Transcribed By: Self Edit Transcribed Date: 10/23/2024 16:05 ET Narrative 10/23/2024 4:06 PM EDT History: Chest pain. Comparison: 01/23/24 Findings: PA and lateral views. The cardiac silhouette remains borderline enlarged. Hilar contours and pulmonary vascularity are within normal limits. The lungs are clear. The costophrenic angles are sharp. Chronic compression fractures are seen at the thoracolumbar junction, without significant change. Procedure Note Marybel Small MD - 10/23/2024 History: Chest pain. Comparison: 01/23/24 Findings: PA and lateral views. The cardiac silhouette remains borderline enlarged.Hilar contours and pulmonary vascularity are within normal limits. Thelungs are clear. The costophrenic angles are sharp. Chronic compression fractures are seen at the thoracolumbar junction,without significant change. IMPRESSION: Impression: Stable radiographic appearance of the chest. No active pulmonary processidentified. [place] ([id number]) -------- FINAL REPORT -------- Dictated By: Marybel Small Dictated Date: 10/23/2024 16:05 ET Assigned Physician: Marybel Small Reviewed and Electronically Signed By: Marybel Small Signed Date: 10/23/2024 16:06 ET Workstation ID: [id number] Transcribed By: Self Edit Transcribed Date: 10/23/2024 16:05 ET us Wm Stevenson DO IMG XR PROCEDURES Final Res ult * CT Cervical Spine wo Contrast (10/23/2024 2:35 PM EDT) Anatomical Region Laterality Modality Spine, C-spine Computed Tomogra phy 10/23/2024 2:48 PM EDT Impressions 10/23/2024 2:53 PM EDT Impression: 1. No evidence of cervical spine fracture or traumatic subluxation. 2. Degenerative disc disease and facet arthritis, with bilateral bony neural foraminal narrowing. [place] ([id number]) -------- FINAL REPORT -------- Dictated By: Marybel Small Dictated Date: 10/23/2024 14:48 ET Assigned Physician: Marybel Small Reviewed and Electronically Signed By: Marybel Small Signed Date: 10/23/2024 14:53 ET Workstation ID: [id number] Transcribed By: Self Edit Transcribed Date: 10/23/2024 14:48 ET Narrative 10/23/2024 2:53 PM EDT History: Neck pain after fall. Comparison: Neck CTA 01/24/24 Technique: Helical volumetric imaging of the cervical spine was performed. DLP: 396.37 mGy/cm Zoe Majesteer Iterative reconstruction technique Findings: The craniocervical articulations are well-maintained bilaterally. The odontoid process is intact and no abnormal widening of the predental distance is seen. Vertebral alignment is normal. The vertebral bodies maintain normal height. There is loss of disc height at C5-C6 and C6-C7, unchanged, consistent with degenerative disc disease. Arthritic changes are present in the apophyseal joints bilaterally. Bilateral, due to combinations of facet and uncovertebral hypertrophy, worst on the left at C4-C5 and C6-C7.. The central spinal canal is grossly patent. No abnormal thickening of the prevertebral soft tissues is seen. Procedure Note Marybel Small MD - 10/23/2024 History: Neck pain after fall. Comparison: Neck CTA 01/24/24 Technique: Helical volumetric imaging of the cervical spine wasperformed. DLP: 396.37 mGy/cm Zoe Majesteer Iterative reconstruction technique Findings: The craniocervical articulations are well-maintained bilaterally. Theodontoid process is intact and no abnormal widening of the predentaldistance is seen. Vertebral alignment is normal. The vertebral bodies maintain normalheight. There is loss of disc height at C5-C6 and C6-C7, unchanged,consistent with degenerative disc disease. Arthritic changes are presentin the apophyseal joints bilaterally. Bilateral, due to combinations offacet and uncovertebral hypertrophy, worst on the left at C4-C5 andC6-C7.. The central spinal canal is grossly patent. No abnormal thickening of theprevertebral soft tissues is seen. IMPRESSION: Impression: 1. No evidence of cervical spine fracture or traumatic subluxation. 2. Degenerative disc disease and facet arthritis, with bilateral bonyneural foraminal narrowing. No significant change. [place] ([id number]) -------- FINAL REPORT -------- Dictated By: Marybel Small Dictated Date: 10/23/2024 14:48 ET Assigned Physician: Marybel Small Reviewed and Electronically Signed By: Marybel Small Signed Date: 10/23/2024 14:53 ET Workstation ID: [id number] Transcribed By: Self Edit Transcribed Date: 10/23/2024 14:48 ET us Wm Stevenson DO IMG CT PROCEDURES Final Res ult * CT Head wo Contrast (10/23/2024 2:35 PM EDT) Anatomical Region Laterality Modality Head and Neck Computed Tomogra phy 10/23/2024 2:45 PM EDT Impressions 10/23/2024 2:48 PM EDT Impression: 1. No acute hemorrhage or intracranial mass effect. 2. Moderate, nonspecific deep white matter changes compatible with chronic microvascular ischemia in a patient of this age. No significant change. [place] ([id number]) -------- FINAL REPORT -------- Dictated By: Marybel Small Dictated Date: 10/23/2024 14:45 ET Assigned Physician: Marybel Small Reviewed and Electronically Signed By: Marybel Small Signed Date: 10/23/2024 14:48 ET Workstation ID: [id number] Transcribed By: Self Edit Transcribed Date: 10/23/2024 14:45 ET Narrative 10/23/2024 2:48 PM EDT History: Brain trauma (syncope). Comparison: 01/24/24 Technique: Contiguous axial images were obtained at 2.5 mm intervals through the posterior fossa and at 5 mm intervals through the remainder of the brain without intravenous contrast. DLP: 936.52 mGy/cm [employer] Iterative reconstruction technique Findings: Moderate generalized cerebral volume loss is again demonstrated. Patchy deep white matter hypodensity is again seen bilaterally, unaccompanied by mass effect or hemorrhage and without significant change. No abnormal intra- or extra-axial masses or fluid collections are seen. There is no evidence of acute intracranial hemorrhage. Minimal mucoperiosteal thickening is seen within the partially imaged paranasal sinuses, consistent with sinusitis. The included portions of the mastoid air cells are clear. No calvarial fracture is seen. Procedure Note Marybel Small MD - 10/23/2024 History: Brain trauma (syncope). Comparison: 01/24/24 Technique: Contiguous axial images were obtained at 2.5 mm intervalsthrough the posterior fossa and at 5 mm intervals through the remainder ofthe brain without intravenous contrast. DLP: 936.52 mGy/cm [employer] Iterative reconstruction technique Findings: Moderate generalized cerebral volume loss is again demonstrated. Patchydeep white matter hypodensity is again seen bilaterally, unaccompanied bymass effect or hemorrhage and without significant change. No abnormal intra- or extra-axial masses or fluid collections are seen.There is no evidence of acute intracranial hemorrhage. Minimal mucoperiosteal thickening is seen within the partially imagedparanasal sinuses, consistent with sinusitis. The included portions of themastoid air cells are clear. No calvarial fracture is seen. IMPRESSION: Impression: 1. No acute hemorrhage or intracranial mass effect. 2. Moderate, nonspecific deep white matter changes compatible with chronicmicrovascular ischemia in a patient of this age. No significant change. [place] DENISE ([id number]) -------- FINAL REPORT -------- Dictated By: Marybel Small Dictated Date: 10/23/2024 14:45 ET Assigned Physician: Marybel Small Reviewed and Electronically Signed By: Marybel Small Signed Date: 10/23/2024 14:48 ET Workstation ID: [id number] Transcribed By: Self Edit Transcribed Date: 10/23/2024 14:45 ET Wm Stevenson DO IMG CT PROCEDURES Final Res ult * Prolactin (10/23/2024 2:15 PM EDT) [facility] Prolactin 39.00 See Comment ng/mL LAB CHEMISTRY METHOD 10/23/2024 9:[address] [facility] Comment: Prolactin Reference Ranges (ng/mL) Non 2.2 - 30.3 8.1 - 347.6 Postmenopausal 0.7 - 31.5 Blood Venous blood specimen / Unknown Venipuncture / Unknown 10/23/2024 2:15 PM EDT 10/23/2024 2:24 PM EDT Terrie WALKER LAB BLOOD ORDERABLES Final Re sult Performing Organization Address City/[facility]/ZIP Co de Phone Number [facility] [address] [place] [address], [place] [phone] * Magnesium (10/23/2024 2:15 PM EDT) [facility] Magnesium 2.1 1.9 - 2.6 mg/dL LAB CHEMISTRY METHOD 10/23/2024 3:[address] [facility] Blood Venous blood specimen / Unknown Venipuncture / Unknown 10/23/2024 2:15 PM EDT 10/23/2024 2:24 PM EDT Wm Stevenson DO LAB BLOOD ORDERABLES Final Result Performing Organization Address [facility]/ZIP Co de Phone Number [facility] [address] [place] [address], [place] [phone] * Hemoglobin A1c (10/23/2024 2:15 PM EDT) [facility] Hemoglobin A1C 5.5 <6.5 % LAB CHEMISTRY METHOD 10/23/2024 10:[address] [facility] Mean Bld Glu Estim. 111 mg/dL LAB CHEMISTRY METHOD 10/23/2024 10:[address] [facility] Blood Venous blood specimen / Unknown Venipuncture / Unknown 10/23/2024 2:15 PM EDT 10/23/2024 2:24 PM EDT Terrie WALKER LAB BLOOD ORDERABLES Final Re sult Performing Organization Address [facility]/ZIP Co de Phone Number [facility] [address] [place] [address], [place] [phone] * Creatine kinase and CKMB (10/23/2024 2:15 PM EDT) Total CK 76 22 - 269 unit/L LAB CHEMISTRY METHOD 10/23/2024 9:[address] [facility] CK-MB 1.2 1.0 - 3.6 ng/mL LAB CHEMISTRY METHOD 10/23/2024 9:[address] [facility] CK-MB Index 0.0 0.0 - 5.0 LAB CHEMISTRY METHOD 10/23/2024 9:[address] [facility] Blood Venous blood specimen / Unknown Venipuncture / Unknown 10/23/2024 2:15 PM EDT 10/23/2024 2:24 PM EDT Terrie WALKER LAB BLOOD ORDERABLES Final Re sult Performing Organization Address City/[facility]/ZIP Co de Phone Number [facility] [address] [place] [address], [place] [phone] * ECG 12 lead (10/23/2024 2:08 PM EDT) Ventricular Rate ECG 68 BPM GEMUSE Atrial Rate 68 BPM GEMUSE P-R Interval 162 ms GEMUSE QRS Duration 86 ms GEMUSE Q-T Interval 394 ms GEMUSE QTc 418 ms GEMUSE P Wave [place] 66 degrees GEMUSE R [place] -9 degrees GEMUSE T [place] 35 degrees GEMUSE ECG Interpretation Normal sinus rhythm with premature atrial complexes When compared with ECG of 23-JAN-2024 12:25, No significant change was found Confirmed by CARMELO WOLFF ([id number]) on 10/24/2024 8:24:30 AM GEMUSE 10/23/2024 2:08 PM EDT 10/24/2024 8:24 AM EDT us Wm Stevenson DO ECG ORDERABLES Final Resul t GEMUSE * Vascular US duplex carotid bilateral (08/26/2024 2:12 PM EDT) Anatomical Region Laterality Modality Vascular, Abdomen Ultrasound 08/26/2024 3:16 PM EDT Impressions 08/26/2024 3:20 PM EDT Focally elevated peak systolic velocity in the proximal right internal carotid artery measuring 253 cm/s. This velocity is suggestive of a 70-89% stenosis. The ICA/CCA ratio is 2.8, which suggests a 50-69% stenosis. -------- FINAL REPORT -------- Dictated By: Juan Francisco Queen Dictated Date: 08/26/2024 15:16 ET Assigned Physician: Juan Francisco Queen Reviewed and Electronically Signed By: Juan Francisco Queen Signed Date: 08/26/2024 15:20 ET Workstation ID: [id number] Transcribed By: Self Edit Transcribed Date: 08/26/2024 15:16 ET Narrative 08/26/2024 3:20 PM EDT PROCEDURE: Carotid ultrasound. HISTORY: stenosis. TECHNIQUE: Grayscale, color Doppler, and spectral Doppler ultrasound evaluation of the carotid and vertebral arteries in the neck. COMPARISON: FINDINGS: Calcified shadowing plaque at the right carotid bulb with an elevated peak systolic velocity in the proximal right internal carotid artery measuring 253 cm/s. The left bulb and bifurcation are suboptimally visualized secondary to tortuosity. No visible left carotid velocity [...] in the proximal right internal carotid artery rulclittn237 cm/s. The left bulb and bifurcation are [...] Signed Date: 08/26/2024 15:20 ET Workstation ID: [id number] Transcribed By: Self Edit Transcribed Date: 08/26/2024 15:16 ET us Phylicia Garcia MD CV VASCULAR PROCEDURES Fi nal Result from Last 3 [place] [id number] MEDICARE [facility] Advance Directives Documents on File Type Date Recorded Patient Warehouse Shipping Receiving Clerk Expl anation Health Care Decision (hx) 02/06/2024 Starla Barrientos is ADVANCE DIRECTIVE Health Care Decision (hx) 01/28/2024 HE ALTH CARE PROXY Health Care Decision (hx) 01/28/2024 HE ALTH CARE PROXY Health Care Decision (hx) 04/30/2023 AD HILL DIRECTIVE Health Care Decision (hx) 04/30/2023 AD HILL DIRECTIVE Health Care Decision (hx) 04/30/2023 AD HILL DIRECTIVE Health Care Decision (hx) 04/30/2023 AD HILL DIRECTIVE Health Care Decision (hx) 04/30/2023 AD HILL DIRECTIVE * No CPR/Do Not Intubate (Latest Code Status on File) Date Activated Date Inactivated Comments 10/23/2024 7:04 PM 10/24/2024 6:28 PM This code stat us was ascertained in the following way: Code status discussion: discussion with patient and daughters at bedside. To update the patient's code status, place a code status order. Do not modify or discontinue any currently active code status orders. Healthcare Agents on File Name Relationship Healthcare Agent Relationshi p Communication Starla Cameron Daughter Health Care Agent Care Teams Rn First Assist Relationship Specialty Start Date End Date Letty Rossi NP [id number] [id number] PCP - General Nurse Practitioner 08/22/24
== END 2024-11-14 13:51 | disposition home or self-care (01) ==
LOC: HO.HMCC 12:34
PROVIDERS: PCP Internal Medicine; Visit Provider Internal Medicine
DX: I10 Essential (primary) hypertension (principal); E03.9 Hypothyroidism, unspecified; E53.8 Deficiency of other specified B group vitamins; E55.9 Vitamin D deficiency, unspecified; W19.XXXA Unspecified fall, initial encounter

== ENCOUNTER → 2024-11-14 12:33 | Outpatient (BNVA) | payer MEDICARE, SELFPAY | PROVIDERS: PCP Internal Medicine; Visit Provider Internal Medicine | DX: I10 Essential (primary) hypertension (principal); E03.9 Hypothyroidism, unspecified; E53.8 Deficiency of other specified B group vitamins; E55.9 Vitamin D deficiency, unspecified; Z91.81 History of falling | CPT/HCPCS: 99212 ==

== ENCOUNTER 2024-12-11 12:45 | Outpatient (REF) | payer MEDICARE, SELFPAY ==
--- OUTSIDE RECORDS SUMMARY | 2024-12-11 13:00 | XMS_ITS | Clinical Summary ---
Author Organization [facility] Address [address] [place] [id number] Phone Care Team Providers Care Equipment Mechanic Name Role Phone Unavailable Primary Care Provider Unavailabl e Social History Tobacco Use Types Packs/Day Years Used Date Smoking Tobacco: Never Assessed Education Answer Date Recorded Are you interested in more education? Not on jon e 09/16/2022 Are you concerned about learning? Not on file 09/16/2022 No 09/16/2022 No 09/16/2022 Digital Access Answer Date Recorded No 10/17/2022 No 10/17/2022 Reliable internet access at home? Not on file 10/17/2022 Device with a working camera? Not on file Comments Unknown Sex and Gender Information Value Date Recorded Sex Assigned at Not on file Legal Sex Female 4:17 PM EDT Gender Identity Not on file Sexual Orientation Not on file Plan of Treatment Not on file Medical Devices Not on file Additional Source Comments The information contained in this document represents components of the legal health record. It is not the complete legal health record.[facility]
--- OUTSIDE RECORDS SUMMARY | 2024-12-11 13:00 | XMS_ITS | Clinical Summary ---
Author Organization [facility] Address [address] [place] [address] Phone Care Team Providers Care Director Prospect Name Role Phone Flo Letty SORTER OPERATOR Primary Care Provider Allergies Active Allergy Reactions Criticality Noted Date Comments Penicillins 05/11/2023 Medications levothyroxine (SYNTHROID, LEVOTHROID) 50 mcg tablet Take 1 tablet (50 mcg total) by mouth 1 (one) time each day before breakfast. Active lisinopril (PRINIVIL,ZESTR IL) 40 mg tablet Take 1 tablet (40 mg total) by mouth 1 (one) time each day. Active amLODIPine (NORVASC) 10 mg tablet Take 1 tablet (10 mg total) by mouth. at bedtime Active atorvastatin (LIPITOR) 20 mg tablet Take 1 tablet (20 mg total) by mouth at bedtime. Active fluocinolone (SYNALAR) 0.025 % cream Apply thin layer to left lower extremities two times a day. 60 g 1 Active Active Problems Problem Noted Date Diagnosed Date Syncope and collapse 10/24/2024 Carotid stenosis, symptomatic w/o infarct 2024 Hyperlipidemia 10/23/2024 Hypertension 10/23/2024 Hypothyroidism 10/23/2024 Encounters Date Type Department Care Team Description 10/23/2024 2:05 PM EDT - 10/24/2024 4:28 PM EDT Hospital Encounter [facility] [address] [place] [id number] Wm Stevenson DO Seralathan, Manikandan, MD Bell, Alistair A, MD Syncope and collapse (Primary Dx) Discharge Disposition: Home or Self Care 09/19/2024 2:00 PM EDT Office Visit Vascular Surgery [facility] [address] [place] [address] Eh Brower MD Carotid stenosis, asymptomatic, bilateral (Primary Dx); 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 from Last 3 Months Surgical History Surgery Date Site/Laterality Comments OTHER SURGICAL HISTORY 04/25/2023 Left PROCEDURE: RI TEAEC W/PATCH GRF CAROTID VERTB SUBCLAV NECK INC COLECTOMY PARTIAL / TOTAL colon cancer (family reports in remission) APPENDECTOMY TONSILLECTOMY ADENOIDECTOMY Medical History Medical History Date Comments Stroke ([facility] V24, [facility] V28) Hypertension Hypothyroidism Carotid artery stenosis Social [...] Description 03/16/2025 12:00 PM EDT Ancillary Procedure [facility] [address] [facility] [address] [place] [address] 03/27/2025 11:30 AM EST Office Visit Vascular Surgery - [place] [address] [place] [address] Eh Brower MD [address] [facility] [address] [place] [address] Health Maintenance Due Date Last Done Comments DTaP,Tdap,and Td Vaccines (1 - Tdap) 02/16/1954 Zoster Vaccines (1 of 2) 02/16/1986 RSV Immunization Adult Patients (1 - 1-dose 75+ series) 02/16/2011 Medicare Annual Wellness Visit 06/19/2023 Osteoporosis Screening (Bone Density Screening) 06/19/2023 COVID-19 Vaccine (3 - 2023-2 5 season) 2024 05/09/2021, 09/24/2020 Depression Screening 05/21/2024 Influenza Vaccine (#1) 2025 Falls Risk Assessment 10/24/2025 10/24/2024 Hypertension/CHF/CAD [...] LACERATION REPAIR Routine 10/23/2024 7:14 PM EDT RI REPAIR SPRFCL WOUNDS SIMPLE SCALP/NECK/AXILLAE/G ENT/TRUNK/EXT <= [...] ECG 12-LEAD STAT 10/23/2024 2:08 PM EDT from Last 3 Months Results * ECG-Annotated [...] Dictated Date: 10/24/2024 10:38 ET Assigned Physician: ALXE HAAS Reviewed and Electronically Signed By: ALEX HAAS Signed Date: 10/24/2024 10:47 ET Workstation ID: [id number] Transcribed By: Self Edit Transcribed Date: 10/24/2024 [...] Signed Date: 10/24/2024 10:47 ET Workstation ID: [id number] Transcribed By: Self Edit Transcribed Date: 10/24/2024 10:38 ET us Karolina WALKER IMG CT PROCEDURES Final Resul t * Lipid panel with reflex to direct LDL (10/24/2024 5:38 AM EDT) Cholesterol 103 0 - 200 mg/dL [facility] Triglycerides 92 0 - 150 mg/dL LAB CHEMISTRY METHOD 10/24/2024 8:23 AM [facility] HDL 43 >=40 mg/dL LAB CHEMISTRY METHOD 10/24/2024 8:23 AM [facility] LDL Calculated 42 0 - 100 mg/dL LAB CHEMISTRY METHOD 10/24/2024 8:23 AM [facility] VLDL Cholesterol Ángel 18.4 mg/dL LAB CHEMISTRY METHOD 10/24/2024 8:23 AM [facility] Non HDL Chol. (LDL+VLDL) 60 <145 mg/dL LAB CHEMISTRY METHOD 10/24/2024 8:23 AM [facility] Chol/HDL Ratio 2.4 0.0 - 4.4 LAB CHEMISTRY METHOD 10/24/2024 8:23 AM [facility] Blood Venous blood specimen / Unknown Venipuncture / Unknown 10/24/2024 5:38 AM EDT 10/24/2024 6:15 AM EDT us Terrie WALKER LAB BLOOD ORDERABLES Final Re sult [facility] [address] [place] [address], * (ABNORMAL) CBC auto differential (10/24/2024 5:38 AM EDT) Only the most recent of2 resultswithin the time period is included. WBC 7.4 4.8 - 10.8 K/mcL LAB HEMETOLOGY METHOD 10/24/2024 6:36 AM EDT [facility] RBC 3.30(L) 3.80 - 4.80 M/mcL LAB HEMETOLOGY METHOD 10/24/2024 6:36 AM EDT [facility] Hemoglobin 10.4(L) 11.5 - 16.0 g/dL LAB HEMETOLOGY METHOD 10/24/2024 6:36 AM EDT [facility] Hematocrit 31.1(L) 35.0 - 47.0 % LAB HEMETOLOGY METHOD 10/24/2024 6:36 AM EDT [facility] MCV 95.4 79.0 - 98.0 FL LAB HEMETOLOGY METHOD 10/24/2024 6:36 AM EDT [facility] MCH 31.9 27.0 - 32.0 pcg LAB HEMETOLOGY METHOD 10/24/2024 6:36 AM EDT [facility] MCHC 33.4 32.0 - 37.0 g/dL LAB HEMETOLOGY METHOD 10/24/2024 6:36 AM EDT [facility] RDW 12.2 11.0 - 15.0 % LAB HEMETOLOGY [facility]24[facility]24 [facility] Platelets 123(L) 130 - 400 K/mcL LAB HEMETOLOGY METHOD 10/24/2024 6:36 AM EDT [facility] MPV 12.4(H) 7.0 - 11.0 FL LAB HEMETOLOGY METHOD 10/24/2024 6:36 AM [facility] NRBC 0.0 <1.0 % LAB HEMETOLOGY METHOD 10/24/2024 6:36 AM [facility] NRBC Absolute 0.00 <0.10 K/mcL LAB HEMETOLOGY METHOD 10/24/2024 6:36 AM [facility] Neutrophils Relative 65.3 % LAB HEMETOLOGY METHOD 10/24/2024 6:36 AM [facility] Lymphocytes Relative 22.5 % LAB HEMETOLOGY METHOD 10/24/2024 6:36 AM [facility] Monocytes Relative 8.3 % LAB HEMETOLOGY METHOD 10/24/2024 6:36 AM [facility] Eosinophils Relative 3.1 % LAB HEMETOLOGY METHOD 10/24/2024 6:36 AM [facility] Basophils Relative 0.5 % LAB HEMETOLOGY METHOD 10/24/2024 6:36 AM [facility] Immature Granulocytes Relative 0.3 % LAB HEMETOLOGY METHOD 10/24/2024 6:36 AM [facility] Neutrophils Absolute 4.82 1.50 - 7.00 K/mcL LAB HEMETOLOGY METHOD 10/24/2024 6:36 AM [facility] Lymphocytes Absolute 1.66 1.00 - 5.00 K/mcL LAB HEMETOLOGY METHOD 10/24/2024 6:36 AM [facility] Monocytes Absolute 0.61 0.20 - 1.00 K/mcL LAB HEMETOLOGY METHOD 10/24/2024 6:36 AM [facility] Eosinophils Absolute 0.23 0.00 - 0.50 K/mcL LAB HEMETOLOGY METHOD 10/24/2024 6:36 AM EDT [facility] Basophils Absolute 0.04 0.00 - 0.20 K/mcL LAB HEMETOLOGY METHOD 10/24/2024 6:36 AM EDT [facility] Immature Granulocytes Absolute 0.02 0.00 - 0.03 K/mcL LAB HEMETOLOGY METHOD 10/24/2024 6:36 AM EDT [facility] Blood Venous blood specimen / Unknown Venipuncture / Unknown 10/24/2024 5:38 AM EDT 10/24/2024 6:15 AM EDT us Terrie WALKER LAB BLOOD ORDERABLES Final Re sult [facility] [address] [place] [address], [place] [phone] * (ABNORMAL) Basic metabolic panel (10/24/2024 5:38 AM EDT) Only the most recent of2 resultswithin the time period is included. Sodium 142 133 - 145 mmol/L LAB CHEMISTRY METHOD 10/24/2024 8:23 AM [facility] Potassium 3.9 3.5 - 5.5 mmol/L LAB CHEMISTRY METHOD 10/24/2024 8:23 AM [facility] Chloride 111(H) 96 - 110 mmol/L LAB CHEMISTRY METHOD 10/24/2024 8:23 AM [facility] CO2 26 21 - 32 mmol/L LAB CHEMISTRY METHOD 10/24/2024 8:23 AM [facility] Anion Gap 5 3 - 11 LAB CHEMISTRY METHOD 10/24/2024 8:23 AM [facility] Glucose 89 70 - 100 mg/dL LAB CHEMISTRY METHOD 10/24/2024 8:23 AM [facility] BUN 18 5 - 25 mg/dL LAB CHEMISTRY METHOD 10/24/2024 8:23 AM EDT [facility] Creatinine 0.98 0.50 - 1.10 mg/dL LAB CHEMISTRY METHOD 10/24/2024 8:23 AM EDT [facility] eGFR 56(L) >=60 mL/min/1. 73m2 LAB CHEMISTRY METHOD 10/24/2024 8:23 AM EDT [facility] Comment:Calculation based on the Chronic Kidney Disease Epidemiology Collaboration (CKD-EPI) equation refit without adjustment for race. BUN/Creatinine Ratio 18.4 LAB CHEMISTRY METHOD 10/24/2024 8:23 AM EDT [facility] Calcium 8.5 8.5 - 10.5 mg/dL LAB CHEMISTRY METHOD 10/24/2024 8:23 AM EDT [facility] Blood Venous blood specimen / Unknown Venipuncture / Unknown 10/24/2024 5:38 AM EDT 10/24/2024 6:15 AM EDT us Terrie WALKER LAB BLOOD ORDERABLES Final Re sult [facility] [address] [place] [address], * MR Brain wo Contrast (10/23/2024 8:29 PM EDT) Anatomical Region Laterality Modality Head and Neck Magnetic Resonan ce 10/23/2024 8:28 PM EDT Impressions 10/23/2024 8:30 PM EDT NO ACUTE INFARCT. -------- FINAL REPORT -------- Dictated By: Donato Serrano Dictated Date: 10/23/2024 20:28 ET Assigned Physician: Donato Serrano Reviewed and Electronically Signed By: Donato Serrano Signed Date: 10/23/2024 20:30 ET Workstation ID: [id number] Transcribed By: Self Edit Transcribed Date: 10/23/2024 [...] Signed Date: 10/23/2024 20:30 ET Workstation ID: [id number] Transcribed By: Self Edit Transcribed Date: 10/23/2024 20:28 ET us Terrie WALKER IMG MRI PROCEDURES Final Resu lt * RI REPAIR SPRFCL WOUNDS SIMPLE SCALP/NECK/AXILLAE/GENT/TRUNK/EXT <= 2.5 CM, HC REPAIR WOUND LEVEL 1 (10/23/2024 7:14 PM EDT) Wm Rouse DO - 10/23/2024 7:14 PM EDT DENISE [...] solution: Sterile saline Skin repair: Repair method: [place] Number of zohaib: 4 Approximation: Approximation: Close [...] LAB CHEMISTRY METHOD 10/23/2024 5:29 PM EDT [facility] Blood Venous blood specimen / Unknown Venipuncture / Unknown 10/23/2024 4:28 PM EDT 10/23/2024 4:56 PM EDT Narrative [facility] - 10/23/2024 5:29 PM EDT High levels of biotin in samples may falsely decrease hsTroponin values. Use caution when interpreting hsTroponin results in patients taking biotin who exhibit renal impairment (eGFR <60) or in patients taking more than 20 mg/day of biotin. us Wm Salomon Graham DO LAB BLOOD ORDERABLES Final Result [facility]HEMI RE[facility]NOSO [place] ([facility]) [facility] [address] [place] [address], [place] [phone] * XR Chest 2 Views (10/23/2024 3:49 PM EDT) Anatomical Region Laterality Modality Body Radiographic Lindsey ging 10/23/2024 4:05 PM EDT Impressions 10/23/2024 4:06 PM EDT Impression: Stable radiographic appearance of the chest. No active pulmonary process identified. Telerad DENISE ([id number]) -------- FINAL REPORT -------- Dictated By: Marybel Small Dictated Date: 10/23/2024 16:05 ET Assigned Physician: Marybel Small Reviewed and Electronically Signed By: Marybel Small Signed Date: 10/23/2024 16:06 ET Workstation ID: [id number] Transcribed By: Self Edit Transcribed Date: 10/23/2024 [...] the chest. No active pulmonary processidentified. Telerad DENISE ([id number]) -------- FINAL REPORT -------- Dictated By: Marybel Small Dictated Date: 10/23/2024 16:05 ET Assigned Physician: Marybel Small Reviewed and Electronically Signed By: Marybel Small Signed Date: 10/23/2024 16:06 ET Workstation ID: [id number] Transcribed By: Self Edit Transcribed Date: 10/23/2024 [...] neural foraminal narrowing. No significant change. Telerad PA ([id number]) -------- FINAL REPORT -------- Dictated By: Marybel Small Dictated Date: 10/23/2024 14:48 ET Assigned Physician: Marybel Small Reviewed and Electronically Signed By: Marybel Small Signed Date: 10/23/2024 14:53 ET Workstation ID: [id number] Transcribed By: Self Edit Transcribed Date: 10/23/2024 14:48 ET Narrative 10/23/2024 2:53 PM EDT History: Neck pain after fall. Comparison: Neck CTA 01/24/24 Technique: Helical volumetric imaging of the cervical spine was performed. DLP: 396.37 mGy/cm [employer] Iterative reconstruction technique Findings: The craniocervical articulations [...] the cervical spine wasperformed. DLP: 396.37 mGy/cm [employer] Iterative reconstruction technique Findings: The craniocervical articulations [...] bonyneural foraminal narrowing. No significant change. [employer] DENISE ([id number]) -------- FINAL REPORT -------- Dictated By: Marybel Small Dictated Date: 10/23/2024 14:48 ET Assigned Physician: Marybel Small Reviewed and Electronically Signed By: Marybel Small Signed Date: 10/23/2024 14:53 ET Workstation ID: [id number] Transcribed By: Self Edit Transcribed Date: 10/23/2024 [...] this age. No significant change. [employer] DENISE ([id number]) -------- FINAL REPORT -------- Dictated By: Marybel Small Dictated Date: 10/23/2024 14:45 ET Assigned Physician: Marybel Small Reviewed and Electronically Signed By: Marybel Small Signed Date: 10/23/2024 14:48 ET Workstation ID: [id number] Transcribed By: Self Edit Transcribed Date: 10/23/2024 14:45 ET Narrative 10/23/2024 2:48 PM EDT History: Brain trauma (syncope). Comparison: 01/24/24 Technique: Contiguous axial images were obtained at 2.5 mm intervals through the posterior fossa and at 5 mm intervals through the remainder of the brain without intravenous contrast. DLP: 936.52 mGy/cm [employer] Iterative reconstruction technique Findings: Moderate generalized cerebral [...] brain without intravenous contrast. DLP: 936.52 mGy/cm [employer] Iterative reconstruction technique Findings: Moderate generalized cerebral [...] patient of this age. No significant change. Olive WALKER ([id number]) -------- FINAL REPORT -------- Dictated By: Marybel Small Dictated Date: 10/23/2024 14:45 ET Assigned Physician: Marybel Small Reviewed and Electronically Signed By: Marybel Small Signed Date: 10/23/2024 14:48 ET Workstation ID: [id number] Transcribed By: Self Edit Transcribed Date: 10/23/2024 14:45 ET Wm Stevenson DO IMG CT PROCEDURES Final Res ult * Prolactin (10/23/2024 2:15 PM EDT) Prolactin 39.00 See Comment ng/mL LAB CHEMISTRY METHOD 10/23/2024 9:05 PM EDT [facility] Comment: Prolactin Reference Ranges (ng/mL) Non 2.2 - 30.3 8.1 - 347.6 Postmenopausal 0.7 - 31.5 Blood Venous blood specimen / Unknown Venipuncture / Unknown 10/23/2024 2:15 PM EDT 10/23/2024 2:24 PM EDT Terrie WALKER LAB BLOOD ORDERABLES Final Re sult [facility] [address] [place] [address], [place] [phone] * Magnesium (10/23/2024 2:15 PM EDT) Pathologist [facility] Magnesium 2.1 1.9 - 2.6 mg/dL LAB CHEMISTRY METHOD 10/23/2024 3:11 PM EDT [facility] Blood Venous blood specimen / Unknown Venipuncture / Unknown 10/23/2024 2:15 PM EDT 10/23/2024 2:24 PM EDT Wm Stevenson DO LAB BLOOD ORDERABLES Final Result Performing Organization Address [facility]/ZIP Co de Phone Number [facility] [address] [place] [address], [place] [phone] * Hemoglobin A1c (10/23/2024 2:15 PM EDT) [facility] Hemoglobin A1C 5.5 <6.5 % LAB CHEMISTRY METHOD 10/23/2024 10:47 PM EDT [facility] Mean Bld Glu Estim. 111 mg/dL LAB CHEMISTRY METHOD 10/23/2024 10:47 PM EDT [facility] Blood Venous blood specimen / Unknown Venipuncture / Unknown 10/23/2024 2:15 PM EDT 10/23/2024 2:24 PM EDT Terrie WALKER LAB BLOOD ORDERABLES Final Re sult [facility] [address] [place] [address], [place] [phone] * Creatine kinase and CKMB (10/23/2024 2:15 PM EDT) [facility] Total CK 76 22 - 269 unit/L LAB CHEMISTRY METHOD 10/23/2024 9:05 PM EDT [facility] CK-MB 1.2 1.0 - 3.6 ng/mL LAB CHEMISTRY METHOD 10/23/2024 9:05 PM EDT [facility] CK-MB Index 0.0 0.0 - 5.0 LAB CHEMISTRY METHOD 10/23/2024 9:05 PM EDT [facility] Blood Venous blood specimen / Unknown Venipuncture / Unknown 10/23/2024 2:15 PM EDT 10/23/2024 2:24 PM EDT us Terrie WALKER LAB BLOOD ORDERABLES Final Re sult NOHEMI REYNOSO [place] ([facility]) [facility] [address] [place] [address], [place] [phone] * ECG 12 lead (10/23/2024 2:08 PM EDT) Ventricular Rate ECG 68 BPM GEMUSE Atrial Rate 68 BPM GEMUSE P-R Interval 162 ms GEMUSE QRS Duration 86 ms GEMUSE Q-T Interval 394 ms GEMUSE QTc 418 ms GEMUSE P Wave [place]ckett 66 degrees GEMUSE R Crockett -9 degrees GEMUSE T Crockett 35 degrees GEMUSE ECG Interpretation Normal sinus rhythm with premature atrial complexes When compared with ECG of 23-JAN-2024 12:25, No significant change was found Confirmed by CARMELO WOLFF ([id number]) on 10/24/2024 8:24:30 AM GEMUSE 10/23/2024 2:08 PM EDT 10/24/2024 8:24 AM EDT Wm Stevenson DO ECG ORDERABLES Final Resul t Performing Organization Address City/[facility]/ZIP Co de Phone Number GEMUSE from Last 3 Months Insurance [facility]IC[facility] Advance Directives Documents on File Type Date Recorded Patient Financial Services Internship Expl anation Health Care Decision (hx) 02/06/2024 [...] Agents on File Name Relationship Healthcare Agent [facility] p Communication Starla Cameron Daughter Health Care Agent Care Teams Director Prospect Relationship Specialty Start Date End Date Letty Rossi NP [address] [address] PCP - General Nurse Practitioner 08/22/24
[2024-12-11 15:22] LABS: Free T4 (Free Thyroxine) 1.23 ng/dL (0.71-1.85)
== END 2024-12-11 12:46 | disposition home or self-care (01) ==
LOC: HO.WFDLDS 12:45
PROVIDERS: Visit Provider Internal Medicine
DX: E03.9 Hypothyroidism, unspecified (principal)
CPT/HCPCS: 36415; 84439; 84443

== ENCOUNTER 2025-03-18 12:33 | Outpatient (REF) | payer MEDICARE, SELFPAY ==
--- OUTSIDE RECORDS SUMMARY | 2025-03-16 12:00 | XMS_ITS | Encounter Summary ---
Author Organization [facility] Address [address] [place] [address] Care Team Providers Care Boiler Repair Supervisor Name Role Phone Letty Rossi NP Primary Care Provider + [phone] Reason for Visit * Imaging (Routine) - Authorized Specialty Diagnoses / Procedures Referred By Dottie lara Referred To Contact Diagnoses Carotid stenosis, asymptomatic, bilateral Procedures Vascular US duplex carotid bilateral Eh Brower MD [address] [place] [address] Phone: tel: fax: [facility] Referral ID Status Reason Start Date Expiration Date V isits Requested Visits Authorized [id number] Authorized 09/19/2024 09/19/2025 1 1 Encounter Details Date Type Department Care Team (Latest Contact Info) Description 03/16/2025 12:00 PM EDT Ancillary Procedure [facility] [address] [place] [address] Carotid stenosis, asymptomatic, bilateral Social History Tobacco Use Types Packs/Day Years Used Date Smoking Tobacco: Never Alcohol Use Standard Drinks/Week Comments Not Currently [...] Safety Answer Date Record ed Physical Abuse Unrecognized value 10/24/2024 Verbal Abuse Unrecognized value 10/24/2024 Comments Unknown Sex and Gender Information Value Date Recorded Sex Assigned at Female 08/22/2024 11:59 AM EDT Legal Sex Female 9:04 AM EST Gender Identity Female 08/22/2024 11:59 AM EDT Sexual Orientation Straight 08/22/2024 12 :02 PM EDT documented as of this encounter Plan of Treatment Upcoming Encounters Date Type Department Care Team (Late st Contact Info) Description 03/27/2025 11:30 AM EST Office Visit Vascular Surgery [place] [address] [place] [address] Eh Brower MD [address] [place] [phone] documented as of this encounter Procedures Procedure Name Priority Date/Time Associated Diagnosis Comments VAS US DUPLEX CAROTID BILATERAL Routine 03/16/2025 12:20 PM EDT Carotid stenosis, asymptomatic, bilateral documented in this encounter Results * Vascular US duplex carotid bilateral (03/16/2025 12:20 PM EDT) Left CCA dist kruger 10 cm/s CV [facility] LAB Left CCA dist sys 73 cm/s [facility] LEFT COMMON CAROTID ARTERY MID D 13 cm/s [facility] LEFT COMMON CAROTID ARTERY MID S 88 cm/s [facility] Left CCA prox kruger 10 cm/s [facility] Left CCA prox sys 72 cm/s [facility] LEFT EXTERNAL CAROTID ARTERY D 5 cm/s [facility] Left ECA sys 66 cm/s [facility] Left ICA/CCA sys 1.50 [facility] Left ICA dist kruger 14 cm/s [facility] Left ICA dist sys 107 cm/s CV [facility] LAB Left ICA mid kruger 13 cm/s [facility] Left ICA mid sys 75 cm/s [facility] Left ICA prox kruger 16 cm/s [facility] Left ICA prox sys 98 cm/s [facility] Left vertebral sys 38 cm/s [facility] Right CCA dist kruger 8 cm/s [facility] Right cca dist sys 56 cm/s [facility] RIGHT COMMON CAROTID ARTERY MID D 12 cm/s [facility] RIGHT COMMON CAROTID ARTERY MID S 79 cm/s [facility] LAB Right CCA prox kruger 9 cm/s [facility] LAB Right CCA prox sys 79 cm/s [facility] RIGHT EXTERNAL CAROTID ARTERY D 5 cm/s [facility] Right eca sys 120 cm/s [facility] Right ICA/CCA sys 2.50 [facility] Right ICA dist kruger 25 cm/s [facility] Right ICA dist sys 127 cm/s [facility] Right ICA mid kruger 19 cm/s [facility] Right ICA mid sys 134 cm/s [facility] Right ICA prox kruger 26 cm/s [facility] Right ICA prox sys 140 cm/s [facility] Right vertebral sys 31 cm/s [facility] Left Prox Subclavian PSV 92 cm/s [facility] Right Prox Subclavian PSV 159 cm/s [facility] Right arm BP 119 mmHg [facility] Left arm BP 113 mmHg [facility] Anatomical Region Laterality Modality Vascular, Abdomen Ultrasound Narrative 03/17/2025 6:28 PM EDT Right proximal ICA: There is mild heterogeneous plaque. Left proximal ICA: There is evidence of intimal thickening. RIGHT. 1. There is atherosclerotic plaque in the carotid system as noted below. 2. There is less than 50% stenosis in the internal carotid artery based on Doppler velocity. 3. The subclavian artery has normal Doppler flow pattern. 4. Vertebral artery has normal antegrade flow. LEFT. 1. There is no significant atherosclerotic plaque in the carotid system as noted below. 2. There is no significant stenosis in the internal carotid artery based on Doppler velocity. 3. The subclavian artery has normal Doppler flow pattern. 4. Vertebral artery has normal antegrade flow. 5. Status post carotid endarterectomy Right Carotid The CCA has no significant plaque. The bifurcation has mild heterogeneous plaque. The proximal ICA has mild heterogeneous plaque. The ECA has no significant plaque. Right BP= 119/54 Vertebral flow is antegrade. Left Carotid There is evidence of intimal thickening in the distal CCA. There is evidence of intimal thickening in the proximal ICA. The ECA has no significant plaque. Left BP= 113/64 The patient has had a prior carotid endarterectomy. Vertebral flow is antegrade. Manager Pediatric Details A blair scale, color and doppler analysis ultrasound was performed. During the study longitudinal and transverse views were obtained. Pulsed wave doppler was performed. us Eh Brower MD CV VASCULAR PROCEDURES Final Re sult documented in this encounter Visit Diagnoses Diagnosis Carotid stenosis, asymptomatic, bilateral documented in this encounter Care Teams Boiler Repair Supervisor Relationship Specialty Start Date End Date Letty Rossi NP [address] [address] PCP - General Nurse Practitioner 08/22/24 documented as of this encounter
[2025-03-18 14:04] LABS: MANUAL DIFF FLAG NO
[2025-03-18 14:08] LABS: Hematocrit 34.6 % (37.0-47.0); Hemoglobin 11.5 g/dl (12.0-16.0); Imm Gran Abs Auto 0.02 X10*3/uL (0.00-0.03); Imm Gran Pct Auto 0.4 % (0.0-0.4); Lymphocytes Absolute Auto 1.0 X10*3/uL (1.2-4.9); Mean Corpuscular HGB Conc 33.2 g/dl (31.0-35.0); Mean Corpuscular Hemoglobin 32.0 pg (27.0-33.0); Mean Corpuscular Volume 96.4 fL (80.0-98.0); NRBC Abs Auto 0.000 X10*3/uL (0.0-0.012); NRBC Pct Auto 0.0 /100WBC (0.0-0.2); Platelet Count 151 X10*3/uL (160-400); Red Blood Count 3.59 X10*6/uL (4.20-5.50); White Blood Count 5.4 X10*3/uL (4.8-10.8)
[2025-03-18 14:41] LABS: Alanine Aminotransferase 21 U/L (0-31); Albumin Level 4.1 g/dL (3.5-5.0); Alkaline Phosphatase 73 U/L (39-117); Anion Gap 9 (12-20); Aspartate Amino Transferase 36 U/L (5-31); Blood Urea Nitrogen 35 mg/dL (9-16); Calcium 9.4 mg/dL (8.4-10.2); Carbon Dioxide 29 mmol/L (22-29); Chloride 106 mmol/L (96-108); Cholesterol 125 mg/dL (<200); Estimated Glomerular Filt Rate 44; HDL Cholesterol 42 mg/dL (>40); Potassium 4.4 mmol/L (3.3-5.1); Sodium 140 mmol/L (135-145); Total Protein 7.5 g/dL (6.5-8.0); Triglycerides 85 mg/dL (<150)
[2025-03-18 15:07] LABS: Folate 11.8 ng/mL (> or = 4.0); Vitamin B12 329 pg/mL (200-900)
[2025-03-18 15:32] LABS: Free T4 (Free Thyroxine) 1.21 ng/dL (0.71-1.85)
--- OUTSIDE RECORDS SUMMARY | 2025-03-18 15:52 | XMS_ITS | Clinical Summary ---
Author Organization [facility] Address [address] [facility] [address] [place] [phone] Phone Care Team Providers Care Shingle Bolt Cutter Name Role Phone Unavailable Primary Care Provider [...] It is not the complete legal health record.[facility]
--- OUTSIDE RECORDS SUMMARY | 2025-03-18 15:52 | XMS_ITS | Encounter Summary ---
Author Organization [facility] Address [address] [place] [address] Care Team Providers Care Teacher Early Childhood Development Name Role Phone Letty Rossi NP Primary Care Provider Encounter Details Date Type Department Care Team (Late st Contact Info) Description 03/18/2025 Results Follow-Up Vascular Surgery - [place] [address] [facility] [address] [place] [address] Karolina Bess PA [address] [place] [phone] Social History Tobacco Use Types Packs/Day Years [...] AM EST Office Visit Vascular Surgery - [place] [address] [place] [address] Eh Brower MD [address] [place] [phone] documented as of this encounter Visit Diagnoses Not on filedocumented in this encounter Care Teams Teacher Early Childhood Development Relationship Specialty Start Date End Date Letty Rossi NP [address] [facility] [address] [place] [address] PCP - General Nurse Practitioner 08/22/24 documented as of this encounter
--- OUTSIDE RECORDS SUMMARY | 2025-03-18 15:52 | XMS_ITS | Clinical Summary ---
Author Organization [facility] Address [address] [place] [address] Phone Care Team Providers Care Traffic Controller Cable Name Role Phone Letty Rossi NP Primary Care Provider Allergies Active Allergy Reactions [...] Encounters Date Type Department Care Team Description 03/18/2025 Results Follow-Up Vascular Surgery - [place] [address] [place] [address] Karolina Bess PA 03/16/2025 12:00 PM EDT Ancillary Procedure [facility] [address] [place] [address] Carotid stenosis, asymptomatic, bilateral from Last 3 Months Surgical History Surgery Date Site/Laterality Comments OTHER SURGICAL HISTORY 04/25/2023 Left PROCEDURE: [place] TEAEC W/PATCH GRF CAROTID VERTB SUBCLAV NECK INC COLECTOMY PARTIAL / TOTAL colon cancer (family reports in remission) APPENDECTOMY TONSILLECTOMY ADENOIDECTOMY Medical History Medical History Date Comments Stroke ([facility] V24, [facility] V28) Hypertension Hypothyroidism Carotid artery stenosis Social [...] AM EST Office Visit Vascular Surgery - [place] [address] [place] [address] Eh Brower MD [address] [place] [phone] Health Maintenance Due Date Last Done Comments DTaP,Tdap,and Td Vaccines (1 - Tdap) 02/16/1954 Zoster Vaccines (1 of 2) 02/16/1986 RSV Immunization Adult Patients (1 - 1-dose 75+ series) 02/16/2011 Medicare Annual Wellness Visit 06/19/2023 Osteoporosis Screening (Bone Density Screening) 06/19/2023 Depression Screening 05/21/2024 COVID-19 Vaccine (3 - 2024-2 6 season) 2025 05/09/2021, 09/24/2020 Influenza Vaccine (#1) 2025 Falls Risk Assessment [...] 12:20 PM EDT Carotid stenosis, asymptomatic, bilateral BASIC METABOLIC PANEL Routine 10/24/2024 5:38 AM EDT LIPID PANEL WITH REFLEX TO DIRECT LDL Routine 10/24/2024 5:38 AM EDT from Last 3 Months or Most Recently Relevant to Health Maintenance Results * Vascular US duplex carotid bilateral [...] prior carotid endarterectomy. Vertebral flow is antegrade. [employer] Details A blair scale, color and doppler analysis ultrasound was performed. During the study longitudinal and transverse views were obtained. Pulsed wave doppler was performed. us Eh Brower MD CV VASCULAR PROCEDURES Final Re sult * Lipid panel with reflex to direct LDL (10/24/2024 5:38 AM EDT) Cholesterol 103 0 - 200 mg/dL LAB CHEMISTRY METHOD 10/24/2024 8:23 AM EDT [facility] Triglycerides 92 0 - 150 mg/dL LAB CHEMISTRY METHOD 10/24/2024 8:23 AM EDT [facility] HDL 43 >=40 mg/dL LAB CHEMISTRY METHOD 10/24/2024 8:23 AM EDT [facility] LDL Calculated 42 0 - 100 mg/dL LAB CHEMISTRY METHOD 10/24/2024 8:23 AM EDT [facility] VLDL Cholesterol Ángel 18.4 mg/dL LAB CHEMISTRY METHOD 10/24/2024 8:23 AM EDT [facility] Non HDL Chol. (LDL+VLDL) 60 <145 mg/dL LAB CHEMISTRY METHOD 10/24/2024 8:23 AM EDT [facility] Chol/HDL Ratio 2.4 0.0 - 4.4 LAB CHEMISTRY METHOD 10/24/2024 8:23 AM EDT [facility] Blood Venous blood specimen / Unknown Venipuncture / Unknown 10/24/2024 5:38 AM EDT 10/24/2024 6:15 AM EDT us Terrie WALKER LAB BLOOD ORDERABLES Final Re sult [facility] [address] [place] [address], * (ABNORMAL) Basic metabolic panel (10/24/2024 5:38 AM EDT) Sodium 142 133 - 145 mmol/L LAB CHEMISTRY METHOD 10/24/2024 8:23 AM [facility] Potassium 3.9 3.5 - 5.5 mmol/L LAB CHEMISTRY METHOD 10/24/2024 8:23 AM [facility] Chloride 111(H) 96 - 110 mmol/L LAB CHEMISTRY METHOD 10/24/2024 8:23 AM [facility] CO2 26 21 - 32 mmol/L LAB CHEMISTRY METHOD 10/24/2024 8:23 AM [facility] Anion Gap 5 3 - 11 LAB CHEMISTRY METHOD 10/24/2024 8:23 AM [facility] Glucose 89 70 - 100 mg/dL LAB CHEMISTRY METHOD 10/24/2024 8:23 AM [facility] BUN 18 5 - 25 mg/dL LAB CHEMISTRY METHOD 10/24/2024 8:23 AM [facility] Creatinine 0.98 0.50 - 1.10 mg/dL LAB CHEMISTRY METHOD 10/24/2024 8:23 AM [facility] eGFR 56(L) >=60 mL/min/1. 73m2 LAB CHEMISTRY METHOD 10/24/2024 8:23 AM [facility] Comment:Calculation based on the Chronic Kidney Disease Epidemiology Collaboration (CKD-EPI) equation refit without adjustment for race. BUN/Creatinine Ratio 18.4 LAB CHEMISTRY METHOD 10/24/2024 8:23 AM [facility] Calcium 8.5 8.5 - 10.5 mg/dL LAB CHEMISTRY METHOD 10/24/2024 8:23 AM [facility] Blood Venous blood specimen / Unknown Venipuncture / Unknown 10/24/2024 5:38 AM EDT 10/24/2024 6:15 AM EDT us Terrie WALKER LAB BLOOD ORDERABLES Final Re sult [facility] [address] [place] [address], from Last 3 Months or Most Recently Relevant to Health Maintenance Insurance MEDICARE [facility] Advance Directives Documents on File Type Date Recorded Patient Packager Hand Expl anation Health Care Decision (hx) 02/06/2024 [...] Agents on File Name Relationship Healthcare Agent [facility] Communication Starla Cameron Daughter Health Care Agent Care Teams Traffic Controller Cable Relationship Specialty Start Date End Date Letty Rossi NP [address] [address] PCP - General Nurse Practitioner 08/22/24
== END 2025-03-18 12:34 | disposition home or self-care (01) ==
LOC: HO.WFDLDS 12:33
PROVIDERS: Visit Provider Internal Medicine
DX: E53.8 Deficiency of other specified B group vitamins (principal); E78.5 Hyperlipidemia, unspecified; E55.9 Vitamin D deficiency, unspecified; E03.9 Hypothyroidism, unspecified; I10 Essential (primary) hypertension
CPT/HCPCS: 36415; 80053; 80061; 82306; 82607; 82746; 84439; 84443; 84481; 85025

== ENCOUNTER 2025-05-08 10:44 | Outpatient (AMB) | payer MEDICARE, SELFPAY ==
[2025-05-08 10:48] VITALS: BP 118/62; PULSE 76; RESP 16; TEMP 37.2; O2SAT 98; BMI 19.3
--- NOTE | 2025-05-08 10:48 | A.OFFPC_ITS ---
Vital Signs 05/08/25 10:48 Height 5 ft 1 in Weight 102 lb BMI 19.3 BP 118/62 Blood Pressure Location Lt brachial Position Sitting Respiration 16 Pulse 76 Pulse Source Pulse Oximeter Temp 98.9 F Temp Source Oral Pulse Oximetry (%) 98 Oxygen Delivery Method Room Air Intake Visit Reasons: 6m follow up Intake Note: Pt is here today for 6 months follow up visit. Allergies Penicillins Allergy (Verified 05/08/25 11:06) Unknown Medication List - Last Reconciled 05/08/25 by Argelia Hutchins MD amlodipine 10 mg PO .QHS atorvastatin 20 mg PO BEDTIME levothyroxine 50 mcg PO DAILY lisinopril 40 mg PO DAILY Tobacco use date assessed: 05/08/25 Dental Screening Dental Screen Date: 11/14/24 HPI 6m follow up HPI Details Pt presents for HTN, hyperlipid, hypothyroid, stable on meds. PFSH Medical History (Updated 05/08/25 @ 12:05 by Argelia Hutchins MD) Anemia Hearing loss Osteoporosis Hypothyroidism Hyperlipemia Left carotid artery stenosis HTN (hypertension) Colon cancer Surgical History Hx of appendectomy History of colon resection Hx of tonsillectomy Family History Father Brain tumor Mother Colon cancer Sister Lung cancer Social History Household Members Other:: lives alone, 6 daughters, Housing: House Patient Tobacco Use Status: Never used Tobacco e-Cigarette/Vaping Use: Never Used service: No Current occupational status: retired Cognitive needs: No Hearing needs: No Vision needs: Yes Questionnaire Thrive Questionnaire Date Thrive assessed: 05/08/25 I am a: Parent/Caregiver What is your living situation today?: I have a steady place to live Within the past 12 months, did the food you bought not last and you didn't have the money to get more?: Never true Within the past 12 months, did you worry whether your food would run out before you got money to buy more?: Never true Do you have trouble paying for medicines?: No Do you have trouble getting transportation to medical appointments?: No Do you have trouble paying your heating and electricity bill?: No Do you have trouble taking care of your child, family member or friend?: I choose not to answer this question Do you have trouble with day-to-day activities such as bathing, preparing meals, shopping, managing finances, etc.?: No Are you currently unemployed and looking for a job?: No Are you interested in more education?: No Please select the resources that you would like help with: None Currently or been in a relationship where the following occur: No concerns reported THRIVE Score: 0 AUDIT C Alcohol Use Questionnaire (AUDIT-C) 1. How often do you have a drink containing alcohol?: Never Total Score: 0 ESTHER-7 AMB Questionnaire ESTHER-7 Date ESTHER - 7 assessed: 04/25/24 Feeling nervous, anxious, or on edge: 0 = Not at all Not being able to stop or control worryin = Not at all Worrying too much about different things: 0 = Not at all Trouble relaxin = Not at all Being so restless that it is hard to sit still: 0 = Not at all Becoming easily annoyed or irritable: 0 = Not at all Feeling afraid as if something awful might happen: 0 = Not at all Total ESTHER-7 score (0-4 normal; 5-9 mild; 10-14 moderate; 15-21 severe): 0 Source: Developed by Drs. Trent Coulter, Keisha Woodson, Blaine Jurado and colleagues, with an educational miah from [employer]. Review of Systems Const All systems reviewed & are unremarkable except as noted in HPI and below Eyes Reports no additional complaints ENT Reports no additional complaints Card Reports no additional complaints Resp Reports no additional complaints GI Reports no additional complaints Reports no additional complaints Physical exam (Primary Care) Vital Signs: Last Vital Signs Temp 98.9 F 05/08/25 10:48 Pulse 76 05/08/25 10:48 Resp 16 05/08/25 10:48 BP 118/62 05/08/25 10:48 Pulse Ox 98 05/08/25 10:48 Oxygen Delivery Method Room Air 05/08/25 10:48 BMI result Body Mass Index 19.3 Tobacco/Smoking Status: Tobacco use Status Tobacco use date assessed 05/08/25 05/08/25 11:13 Patient Tobacco Use Status Never used Tobacco 05/08/25 10:48 e-Cigarette/Vaping Use Never Used 05/08/25 10:48 Thrive Assessment: Date of Thrive Assessment Date Thrive assessed 05/08/25 05/08/25 10:48 Currently or been in a relationship where the following occur: No concerns reported Const General: no acute distress HENMT Head: Yes normal to inspection Face and sinus: Yes normal facial exam Mouth: Normal oral and palatal mucosa present Teeth and gingiva: dentition normal Resp Effort & Inspection: normal respiratory effort Auscultation: clear to auscultation bilaterally Cardio Rhythm: regular rhythm Heart sounds: S1 normal heart sound present and S2 normal heart sound present GI Inspection: Yes normal to inspection Coding Level of Care Code Est Pt Level 4 (24810) Diagnoses HTN (hypertension) I10 Hyperlipemia E78.5 Hypothyroidism E03.9 Assessment & Plan Assessment & Plan (1) HTN (hypertension): Code(s): I10 - Essential (primary) hypertension Category: Medical Plan: Continue current medications (2) Hyperlipemia: Code(s): E78.5 - Hyperlipidemia, unspecified Category: Medical Plan: Continue statin (3) Hypothyroidism: Code(s): E03.9 - Hypothyroidism, unspecified Category: Medical Plan: Continue levothyroxine, follow-up in 6 months with a fasting labs before Orders: Orders Comprehensive Adams. Panel Fast 6 Months E03.9 - Hypothyroidism, unspecified, E53.8 - Deficiency of other specified B group vitamins, E55.9 - Vitamin D deficiency, unspecified, I10 - Essential (primary) hypertension TSH reflex Free T4 6 Months E03.9 - Hypothyroidism, unspecified, E53.8 - Deficiency of other specified B group vitamins, E55.9 - Vitamin D deficiency, unspecified, I10 - Essential (primary) hypertension Vitamin B12 and Folate 6 Months E03.9 - Hypothyroidism, unspecified, E53.8 - Deficiency of other specified B group vitamins, E55.9 - Vitamin D deficiency, unspecified, I10 - Essential (primary) hypertension Complete Blood Count Auto Diff 6 Months E03.9 - Hypothyroidism, unspecified, E53.8 - Deficiency of other specified B group vitamins, E55.9 - Vitamin D deficiency, unspecified, I10 - Essential (primary) hypertension Lipid Panel 6 Months E03.9 - Hypothyroidism, unspecified, E53.8 - Deficiency of other specified B group vitamins, E55.9 - Vitamin D deficiency, unspecified, I10 - Essential (primary) hypertension Vitamin D 25-OH Total 6 Months E03.9 - Hypothyroidism, unspecified, E53.8 - Deficiency of other specified B group vitamins, E55.9 - Vitamin D deficiency, unspecified, I10 - Essential (primary) hypertension
--- OUTSIDE RECORDS SUMMARY | 2025-05-08 12:29 | XMS_ITS | Clinical Summary ---
Author Organization [facility] Address [address] [facility] [address] [place] [phone] Phone Care Team Providers Care Live In Housekeeper Nanny Name Role Phone Unavailable Primary Care Provider [...] It is not the complete legal health record.[facility]
--- OUTSIDE RECORDS SUMMARY | 2025-05-08 12:29 | XMS_ITS | Encounter Summary ---
Author Organization [facility] Address [address] [place] [address] Care Team Providers Care Roll Forming Machine Operator Name Role Phone Letty Rossi NP Primary Care Provider Encounter Details Date Type Department Care Team (Late st Contact Info) Description 03/18/2025 Results Follow-Up Vascular Surgery - [place] [address] [facility] [address] [place] [phone] Karolina Bess PA [address] [facility] [address] [place] [address] Social History Tobacco Use Types Packs/Day Years [...] Care Team (Late st Contact Info) Description 09/25/2025 11:30 AM EDT Office Visit Vascular Surgery - [place] [address] [place] [address] Eh Brower MD [address] [place] [phone] documented as of this encounter Visit Diagnoses Not on filedocumented in this encounter Care Teams Roll Forming Machine Operator Relationship Specialty Start Date End Date Letty Rossi NP [address] [facility] [address] [place] [address] PCP - General Nurse Practitioner 08/22/24 documented as of this encounter
--- OUTSIDE RECORDS SUMMARY | 2025-05-08 12:29 | XMS_ITS | Clinical Summary ---
Author Organization [facility] Address [address] [place] [address] Phone Care Team Providers Care Fisher Troll Line Name Role Phone Letty Rossi NP Primary [...] two times a day. 60 g 1 5 Active Additional Information Patient not taking.Reported on 03/27/2025 Active Problems Problem Noted Date Diagnosed Date Syncope and collapse 10/24/2024 Carotid stenosis, symptomatic w/o infarct 2024 Hyperlipidemia 10/23/2024 Hypertension 10/23/2024 Hypothyroidism 10/23/2024 Encounters Date Type Department Care Team Description 03/27/2025 11:30 AM EST Office Visit Vascular Surgery - [place] [address] [place] [phone] Renetta Jason PA Carotid stenosis, asymptomatic, bilateral (Primary Dx); History of left-sided carotid endarterectomy 03/18/2025 Results Follow-Up Vascular Surgery - [place] [address] [place] [address] Karolina Bess PA 03/16/2025 12:00 PM EDT Ancillary Procedure [facility] - [facility] [address] [place] [phone] Carotid stenosis, asymptomatic, bilateral from Last 3 Months Surgical History Surgery Date Site/Laterality Comments OTHER SURGICAL HISTORY 04/25/2023 Left PROCEDURE: CT TEAEC W/PATCH GRF CAROTID VERTB SUBCLAV NECK INC COLECTOMY PARTIAL / TOTAL colon cancer (family reports in remission) APPENDECTOMY TONSILLECTOMY ADENOIDECTOMY Medical History Medical History Date Comments Stroke ([facility] V24, [facility] V28) Hypertension Hypothyroidism Carotid artery stenosis [...] Orientation Straight 08/22/2024 12 :02 PM EDT Last Filed Vital Signs Vital Sign Reading Time Taken Comments Blood Pressure 130/60 03/27/2025 11:31 AM EST Pulse 72 03/27/2025 11:31 AM EST Temperature 36.7 C (98 F) 10/24/2024 11:33 AM EDT Respiratory Rate 16 03/27/2025 11:31 AM EST Oxygen Saturation 100% 10/24/2024 11:36 AM EDT Inhaled Oxygen Concentration - - Weight 46.7 kg (103 lb) 03/27/2025 11:31 AM EST Height 154.9 cm (5' 1 ) 03/27/2025 11:31 AM EST Body Mass Index 19.46 03/27/2025 11:31 AM EST Plan of Treatment Upcoming Encounters Date Type Department Care Team (Late st Contact Info) Description 09/25/2025 11:30 AM EDT Office Visit Vascular Surgery - [place] [address] [place] [address] Eh Brower MD [address] [place] [phone] Health Maintenance Due Date Last Done Comments [...] prior carotid endarterectomy. Vertebral flow is antegrade. [employer] Details A blair scale, color and doppler analysis ultrasound was performed. During the study longitudinal and transverse views were obtained. Pulsed wave doppler was performed. us Eh Brower MD CV VASCULAR PROCEDURES Final Re sult * Lipid panel with reflex to direct LDL (10/24/2024 5:38 AM EDT) Cholesterol 103 0 - 200 mg/dL LAB CHEMISTRY METHOD 10/24/2024 8:23 AM EDT [facility] Triglycerides 92 0 - 150 mg/dL LAB CHEMISTRY METHOD 10/24/2024 8:23 AM EDT [facility] HDL 43 >=40 mg/dL LAB CHEMISTRY METHOD 10/24/2024 8:23 AM EDT [facility] LDL Calculated 42 0 - 100 mg/dL LAB CHEMISTRY METHOD 10/24/2024 8:23 AM EDT [facility] VLDL Cholesterol Ángel 18.4 mg/dL LAB CHEMISTRY METHOD 10/24/2024 8:23 AM [facility] Non HDL Chol. (LDL+VLDL) 60 <145 mg/dL LAB CHEMISTRY METHOD 10/24/2024 8:23 AM EDT [facility] Chol/HDL Ratio 2.4 0.0 - 4.4 LAB CHEMISTRY METHOD 10/24/2024 8:23 AM T [facility] Blood Venous blood specimen / Unknown Venipuncture / Unknown 10/24/2024 5:38 AM EDT 10/24/2024 6:15 AM EDT us Terrie WALKER LAB BLOOD ORDERABLES Final Re sult [facility] [address] [place] [address], [place] [phone] * (ABNORMAL) Basic metabolic panel (10/24/2024 5:38 AM EDT) Sodium 142 133 - 145 mmol/L LAB CHEMISTRY METHOD 10/24/2024 8:23 AM [facility] Potassium 3.9 3.5 - 5.5 mmol/L LAB CHEMISTRY METHOD 10/24/2024 8:23 AM [facility] Chloride 111(H) 96 - 110 mmol/L LAB CHEMISTRY METHOD 10/24/2024 8:23 AM [facility] CO2 26 21 - 32 mmol/L LAB CHEMISTRY METHOD 10/24/2024 8:23 AM [facility] Anion Gap 5 3 - 11 LAB CHEMISTRY METHOD 10/24/2024 8:23 AM [facility] Glucose 89 70 - 100 mg/dL LAB CHEMISTRY METHOD 10/24/2024 8:23 AM [facility] BUN 18 5 - 25 mg/dL LAB CHEMISTRY METHOD 10/24/2024 8:23 AM [facility] Creatinine 0.98 0.50 - 1.10 mg/dL LAB CHEMISTRY METHOD 10/24/2024 8:23 AM [facility] eGFR 56(L) >=60 mL/min/1. 73m2 LAB CHEMISTRY METHOD 10/24/2024 8:23 AM [facility] Comment:Calculation based on the Chronic Kidney Disease Epidemiology Collaboration (CKD-EPI) equation refit without adjustment for race. BUN/Creatinine Ratio 18.4 LAB CHEMISTRY METHOD 10/24/2024 8:23 AM [facility] Calcium 8.5 8.5 - 10.5 mg/dL LAB CHEMISTRY METHOD 10/24/2024 8:23 AM [facility] Blood Venous blood specimen / Unknown Venipuncture / Unknown 10/24/2024 5:38 AM EDT 10/24/2024 6:15 AM EDT us Terrie WALKER LAB BLOOD ORDERABLES Final Re sult [facility] [address] [place] [address], from Last 3 Months or Most Recently Relevant to Health Maintenance Insurance MEDICARE [facility] Advance Directives Documents on File Type Date Recorded Patient Co Founder And Ceo Expl anation Health Care Decision (hx) 02/06/2024 [...] 7:04 PM 10/24/2024 6:28 PM This code sta tus was ascertained in the following way: Code status discussion: discussion with patient and daughters at bedside. To update the patient's code status, place a code status order. Do not modify or discontinue any currently active code status orders. Healthcare Agents on File Name Relationship Healthcare Agent [facility] p Communication Starla Cameron Daughter Health Care Agent Care Teams Fisher Troll Line Relationship Specialty Start Date End Date Letty Rossi NP [address] [address] PCP - General Nurse Practitioner 08/22/24
== END 2025-05-08 12:10 | disposition home or self-care (01) ==
LOC: HO.HMCC 10:45
PROVIDERS: PCP Internal Medicine; Visit Provider Internal Medicine
DX: I10 Essential (primary) hypertension (principal); E78.5 Hyperlipidemia, unspecified; E03.9 Hypothyroidism, unspecified

== ENCOUNTER → 2025-05-08 10:44 | Outpatient (BNVA) | payer MEDICARE, SELFPAY | PROVIDERS: PCP Internal Medicine; Visit Provider Internal Medicine | DX: I10 Essential (primary) hypertension (principal); E78.5 Hyperlipidemia, unspecified; E03.9 Hypothyroidism, unspecified; E53.8 Deficiency of other specified B group vitamins; E55.9 Vitamin D deficiency, unspecified; Z13.31 Encounter for screening for depression; Z79.899 Other long term (current) drug therapy | CPT/HCPCS: 96127; 99212 ==